=== PATIENT | female | born 1955 | race Caucasian/White ===

== ENCOUNTER 2017-09-18 16:29 | Inpatient (IN) ==
--- NOTE | 2017-09-18 17:41 | Emergency Department Note ---
Disposition Clinical Impression: Syncope, COPD (chronic obstructive pulmonary disease), History of heart artery stent, CAD (coronary artery disease), Elevated troponin, Elevated d-dimer, Abnormal EKG, Lactic acidosis, Abnormal urinalysis, Dyspnea on exertion Disposition: Admitted As Inpatient General Adult HPI - General Chief complaint: ED Shortness of Breath/Dyspnea Stated complaint: confused/SOB Source: patient Limitations: no limitations - History of Present Illness HPI Narrative: 61-year-old female with known pulmonary disease and a chronic oxygen requirement reports the ED with family members, there is concern because the patient dropped her oxygen saturation to the 70s earlier today, she has been progressively dyspneic with hypoxemia after walking only about 15 feet she has had a coarse cough and coughing up green material. There is no history of chest pain no leg swelling or pain or coughing up blood. No anticoagulant therapy at this time reported. There is no history of abdominal pain vomiting or diarrhea. No falls or injuries but the patient did have a syncopal event. She became significantly confused earlier in the day and also had what was describes a panic attack. The patient does not have a history of seizure disorders and there is no history of trauma. The patient went to another facility in [facility] and was evaluated partially but then left and came here. The patient's family is highly concerned regarding the patient's mental status, she was calling direct relatives by unfamiliar names, she apparently had a syncopal event, she was anxious and confused and short of breath. Pain Scale: 5 - Related Data Allergies Allergy/AdvReac Type Severity Reaction Status Date / Time ceftriaxone [From Rocephin] Allergy Hives Verified 09/18/17 16:57 All systems ED: reviewed and negative except as stated. Past Medical History - Past Medical History Medical history: Reports: COPD, coronary artery disease, myocardial infarction Psychiatric history: Reports: anxiety, depression - Social History Smoking Status: Current every day smoker Smokeless Tobacco Status: No Alcohol use: Reports: none Drug use: Reports: none Physical Exam - General Limitations: no limitations General appearance: alert, in no apparent distress - Head Head exam: atraumatic, normocephalic, normal inspection - Eye Eye exam: Present: normal appearance, PERRL, EOMI. Absent: scleral icterus, conjunctival injection - ENT ENT exam: normal exam, normal oropharynx, mucous membranes moist, TM's normal bilaterally, normal external ear exam - Neck Neck exam: Present: normal inspection, full ROM, trachea midline - Chest Chest inspection: Present: symmetric chest wall rise. Absent: tenderness - Respiratory Respiratory exam: Present: prolonged expiratory phase. Absent: respiratory distress, wheezes, accessory muscle use - Cardiovascular Cardiovascular exam: Present: regular rate, normal rhythm, normal heart sounds - Abdominal Exam Abdominal exam: Present: soft, Non-Tender, normal bowel sounds. Absent: tenderness, distention, guarding, rebound, rigidity - Extremities Exam Extremities exam: Present: normal inspection, full ROM, normal capillary refill. Absent: tenderness, pedal edema, joint swelling, calf tenderness - Expanded Lower Extremity Exam Neurovascular/Tendon exam: Present: normal capillary refill. Absent: motor deficit, sensory deficit, tendon deficit, extremity cold to touch, pallor - Back Exam Back exam: Present: normal inspection, full ROM. Absent: tenderness, CVA tenderness (R), CVA tenderness (L), vertebral tenderness - Neurological Exam Neurological exam: Present: alert, oriented X3, CN II-XII intact. Absent: motor sensory deficit - Psychiatric Psychiatric exam: Present: normal affect, normal mood - Skin Skin exam: Present: warm, dry, intact, normal color. Absent: rash, cyanosis, diaphoresis, erythema, pallor, mottled Course Vital Signs Temperature 97.4 F L 09/18/17 16:57 Pulse Rate 98 09/18/17 16:57 Respiratory Rate 20 09/18/17 16:57 Blood Pressure 111/74 09/18/17 16:57 O2 Sat by Pulse Oximetry 92 09/18/17 16:57 Temperature 97.4 F L 09/18/17 16:57 Pulse Rate 75 09/18/17 18:51 Respiratory Rate 18 09/18/17 18:51 Blood Pressure 101/70 09/18/17 18:51 O2 Sat by Pulse Oximetry 96 09/18/17 18:51 Oxygen Delivery Oxygen Delivery Nasal Cannula Medical Decision Making - [facility] Narrative Medical decision making narrative: The patient's EKG shows T-wave inversions but no ashish ST elevations, her troponin is notably elevated at 0.2. The patient also has elevated d-dimer. A CTA has been ordered. Aspirin was ordered as well as heparin. The patient apparently had a syncopal event, family thought the patient had some significant anxiety issues as well, she has been dyspneic on exertion and has a known history of COPD with oxygen requirement as well as CAD and multiple stents. Based on the patient's highly abnormal testing including elevated d- dimer and troponin as well as an abnormal EKG, non-STEMI is high in the differential, PE is also certainly high in the differentia. The patient has had no chest pain. She is currently stable. I discussed the case with the hospitalist on-call who has accepted the patient to their care CTA pending. - Lab Data Lab results reviewed: Yes I reviewed the patient's lab results. Result diagrams: 09/18/17 17:33 09/18/17 17:33 Lab Results 09/18/17 09/18/17 09/18/17 Range/Units 17:07 17:22 17:33 WBC 5.2 (4.3-11.1) K/mcL RBC 4.52 (3.82-4.97) M/mcL Hgb 13.7 (11.5-15.4) g/dL Hct 42.0 (35.3-44.9) % MCV 92.9 (83.0-100.0) fL MCH 30.3 (28.0-33.3) pg MCHC 32.6 (31.6-35.5) g/dL RDW 12.5 (11.5-14.5) % Plt Count 211 (140-400) K/mcL MPV 10.6 (9.4-12.4) fL Immature Gran % 0.4 (0-4) % Seg Neutrophils % 89.4 % Lymphocytes % 9.0 % Monocytes % 0.8 % Eosinophils % 0.2 % Basophils % 0.2 % Neutrophils # 4.7 (1.6-8.9) K/mcL Lymphocytes # 0.5 L (0.6-4.6) K/mcL Monocytes # 0.0 (0.0-1.3) K/mcL Eosinophils # 0.0 (0.0-0.6) K/mcL Basophils # 0.0 (0.0-0.2) K/mcL Immature Plt Fraction 7.6 H (1.1-6.1) % PT (9.4-12.1) Seconds INR APTT (26.0-36.0) Seconds D-Dimer (0-500) ng/mLFEU Sodium (136-145) mEq/L Potassium (3.5-4.5) mEq/L Chloride (98-109) mEq/L Carbon Dioxide (19-29) mEq/L BUN (7-20) mg/dL Creatinine (0.57-1.11) mg/dL Est GFR ( Amer) (> 60) Est GFR (Non-Af Amer) (> 60) BUN/Creatinine Ratio (6-26) Glucose (70-99) mg/dL Calculated Osmolality (280-300) Lactic Acid (0.5-2.2) mmol/L Calcium (8.6-10.8) mg/dL Total Bilirubin (0.2-1.2) mg/dL Direct Bilirubin (0.0-0.5) mg/dL Indirect Bilirubin (0.0-1.2) mg/dL AST (5-34) Units/L ALT (0-55) Units/L Alkaline Phosphatase (38-126) Units/L Troponin I (0-0.03) ng/mL C-Reactive Protein (Less than 5) mg/L B-Natriuretic Peptide (0-100) pg/mL Serum Total Protein (6.0-8.3) g/dL Albumin (3.5-5.0) g/dL Globulin (2.4-3.5) g/dL Albumin/Globulin Ratio (1.1-2.2) Urine Color Yellow (Yellow) Urine Clarity Cloudy A (Clear) Urine pH 6.5 (5.0-8.0) pH Units Ur Specific Electra 1.018 (1.010-1.025) Urine Protein Negative (Neg-Trace) mg/dL Urine Glucose (UA) Normal (Normal) mg/dL Urine Ketones Negative (Negative) mg/dL Urine Blood Negative (Negative) Urine Nitrite Negative (Negative) Urine Bilirubin Negative (Negative) Urine Urobilinogen Normal (Normal) mg/dL Ur Leukocyte Esterase Small H (Negative) Urine Microscopic RBC 0-3 (0-3) per hpf Urine Microscopic WBC 5-15 H (0-3) per hpf Ur Squamous Epith Cells Many H (None-Few) per lpf Urine Bacteria None Seen (None-Few) per hpf Hyaline Casts None Seen (None-Few) per lpf Ur Culture Indicated? YES A (NO) Salicylates (15-30) mg/dL Urine Opiates Screen Negative (Ztryhk=666) ng/mL Acetaminophen (10-30) mcg/mL Ur Barbiturates Screen Negative (Axnvyq=381) ng/mL Ur Phencyclidine Scrn Negative (Cutoff=25) ng/mL Ur Amphetamines Screen Negative (Mmkfhz=7748) ng/mL U Benzodiazepines Scrn Negative (Mwvnrk=712) ng/mL Urine Cocaine Screen Negative (Cutoff= 300) ng/mL U Marijuana (THC) Screen Negative (Cutoff = 50) ng/mL Ethyl Alcohol (0-10) mg/dL 09/18/17 09/18/17 09/18/17 Range/Units 17:33 17:33 17:33 WBC (4.3-11.1) K/mcL RBC (3.82-4.97) M/mcL Hgb (11.5-15.4) g/dL Hct (35.3-44.9) % MCV (83.0-100.0) fL MCH (28.0-33.3) pg MCHC (31.6-35.5) g/dL RDW (11.5-14.5) % Plt Count (140-400) K/mcL MPV (9.4-12.4) fL Immature Gran % (0-4) % Seg Neutrophils % % Lymphocytes % % Monocytes % % Eosinophils % % Basophils % % Neutrophils # (1.6-8.9) K/mcL Lymphocytes # (0.6-4.6) K/mcL Monocytes # (0.0-1.3) K/mcL Eosinophils # (0.0-0.6) K/mcL Basophils # (0.0-0.2) K/mcL Immature Plt Fraction (1.1-6.1) % PT 10.9 (9.4-12.1) Seconds INR 1.0 APTT 28.4 (26.0-36.0) Seconds D-Dimer 888 H (0-500) ng/mLFEU Sodium 138 (136-145) mEq/L Potassium 4.0 (3.5-4.5) mEq/L Chloride 99 (98-109) mEq/L Carbon Dioxide 32 H (19-29) mEq/L BUN 13 (7-20) mg/dL Creatinine 0.77 (0.57-1.11) mg/dL Est GFR ( Amer) > 60 (> 60) Est GFR (Non-Af Amer) > 60 (> 60) BUN/Creatinine Ratio 17 (6-26) Glucose 149 H (70-99) mg/dL Calculated Osmolality 289 (280-300) Lactic Acid 3.1 H (0.5-2.2) mmol/L Calcium 9.5 (8.6-10.8) mg/dL Total Bilirubin 0.4 (0.2-1.2) mg/dL Direct Bilirubin 0.2 (0.0-0.5) mg/dL Indirect Bilirubin 0.2 (0.0-1.2) mg/dL AST 28 (5-34) Units/L ALT 25 (0-55) Units/L Alkaline Phosphatase 76 (38-126) Units/L Troponin I (0-0.03) ng/mL C-Reactive Protein (Less than 5) mg/L B-Natriuretic Peptide (0-100) pg/mL Serum Total Protein 6.3 (6.0-8.3) g/dL Albumin 3.5 (3.5-5.0) g/dL Globulin 2.8 (2.4-3.5) g/dL Albumin/Globulin Ratio 1.3 (1.1-2.2) Urine Color (Yellow) Urine Clarity (Clear) Urine pH (5.0-8.0) pH Units Ur Specific Electra (1.010-1.025) Urine Protein (Neg-Trace) mg/dL Urine Glucose (UA) (Normal) mg/dL Urine Ketones (Negative) mg/dL Urine Blood (Negative) Urine Nitrite (Negative) Urine Bilirubin (Negative) Urine Urobilinogen (Normal) mg/dL Ur Leukocyte Esterase (Negative) Urine Microscopic RBC (0-3) per hpf Urine Microscopic WBC (0-3) per hpf Ur Squamous Epith Cells (None-Few) per lpf Urine Bacteria (None-Few) per hpf Hyaline Casts (None-Few) per lpf Ur Culture Indicated? (NO) Salicylates (15-30) mg/dL Urine Opiates Screen (Ypkggx=370) ng/mL Acetaminophen (10-30) mcg/mL Ur Barbiturates Screen (Fqtkxf=703) ng/mL Ur Phencyclidine Scrn (Cutoff=25) ng/mL Ur Amphetamines Screen (Odwxuj=0806) ng/mL U Benzodiazepines Scrn (Pqaloo=401) ng/mL Urine Cocaine Screen (Cutoff= 300) ng/mL U Marijuana (THC) Screen (Cutoff = 50) ng/mL Ethyl Alcohol (0-10) mg/dL 09/18/17 09/18/17 09/18/17 Range/Units 17:33 17:33 17:33 WBC (4.3-11.1) K/mcL RBC (3.82-4.97) M/mcL Hgb (11.5-15.4) g/dL Hct (35.3-44.9) % MCV (83.0-100.0) fL MCH (28.0-33.3) pg MCHC (31.6-35.5) g/dL RDW (11.5-14.5) % Plt Count (140-400) K/mcL MPV (9.4-12.4) fL Immature Gran % (0-4) % Seg Neutrophils % % Lymphocytes % % Monocytes % % Eosinophils % % Basophils % % Neutrophils # (1.6-8.9) K/mcL Lymphocytes # (0.6-4.6) K/mcL Monocytes # (0.0-1.3) K/mcL Eosinophils # (0.0-0.6) K/mcL Basophils # (0.0-0.2) K/mcL Immature Plt Fraction (1.1-6.1) % PT (9.4-12.1) Seconds INR APTT (26.0-36.0) Seconds D-Dimer (0-500) ng/mLFEU Sodium (136-145) mEq/L Potassium (3.5-4.5) mEq/L Chloride (98-109) mEq/L Carbon Dioxide (19-29) mEq/L BUN (7-20) mg/dL Creatinine (0.57-1.11) mg/dL Est GFR ( Amer) (> 60) Est GFR (Non-Af Amer) (> 60) BUN/Creatinine Ratio (6-26) Glucose (70-99) mg/dL Calculated Osmolality (280-300) Lactic Acid (0.5-2.2) mmol/L Calcium (8.6-10.8) mg/dL Total Bilirubin (0.2-1.2) mg/dL Direct Bilirubin (0.0-0.5) mg/dL Indirect Bilirubin (0.0-1.2) mg/dL AST (5-34) Units/L ALT (0-55) Units/L Alkaline Phosphatase (38-126) Units/L Troponin I 0.20 H* (0-0.03) ng/mL C-Reactive Protein < 1 (Less than 5) mg/L B-Natriuretic Peptide 65 (0-100) pg/mL Serum Total Protein (6.0-8.3) g/dL Albumin (3.5-5.0) g/dL Globulin (2.4-3.5) g/dL Albumin/Globulin Ratio (1.1-2.2) Urine Color (Yellow) Urine Clarity (Clear) Urine pH (5.0-8.0) pH Units Ur Specific Electra (1.010-1.025) Urine Protein (Neg-Trace) mg/dL Urine Glucose (UA) (Normal) mg/dL Urine Ketones (Negative) mg/dL Urine Blood (Negative) Urine Nitrite (Negative) Urine Bilirubin (Negative) Urine Urobilinogen (Normal) mg/dL Ur Leukocyte Esterase (Negative) Urine Microscopic RBC (0-3) per hpf Urine Microscopic WBC (0-3) per hpf Ur Squamous Epith Cells (None-Few) per lpf Urine Bacteria (None-Few) per hpf Hyaline Casts (None-Few) per lpf Ur Culture Indicated? (NO) Salicylates (15-30) mg/dL Urine Opiates Screen (Jjhsvx=802) ng/mL Acetaminophen (10-30) mcg/mL Ur Barbiturates Screen (Vuzxbi=165) ng/mL Ur Phencyclidine Scrn (Cutoff=25) ng/mL Ur Amphetamines Screen (Scizjo=5270) ng/mL U Benzodiazepines Scrn (Wudfvr=729) ng/mL Urine Cocaine Screen (Cutoff= 300) ng/mL U Marijuana (THC) Screen (Cutoff = 50) ng/mL Ethyl Alcohol (0-10) mg/dL 09/18/17 Range/Units 17:37 WBC (4.3-11.1) K/mcL RBC (3.82-4.97) M/mcL Hgb (11.5-15.4) g/dL Hct (35.3-44.9) % MCV (83.0-100.0) fL MCH (28.0-33.3) pg MCHC (31.6-35.5) g/dL RDW (11.5-14.5) % Plt Count (140-400) K/mcL MPV (9.4-12.4) fL Immature Gran % (0-4) % Seg Neutrophils % % Lymphocytes % % Monocytes % % Eosinophils % % Basophils % % Neutrophils # (1.6-8.9) K/mcL Lymphocytes # (0.6-4.6) K/mcL Monocytes # (0.0-1.3) K/mcL Eosinophils # (0.0-0.6) K/mcL Basophils # (0.0-0.2) K/mcL Immature Plt Fraction (1.1-6.1) % PT (9.4-12.1) Seconds INR APTT (26.0-36.0) Seconds D-Dimer (0-500) ng/mLFEU Sodium (136-145) mEq/L Potassium (3.5-4.5) mEq/L Chloride (98-109) mEq/L Carbon Dioxide (19-29) mEq/L BUN (7-20) mg/dL Creatinine (0.57-1.11) mg/dL Est GFR ( Amer) (> 60) Est GFR (Non-Af Amer) (> 60) BUN/Creatinine Ratio (6-26) Glucose (70-99) mg/dL Calculated Osmolality (280-300) Lactic Acid (0.5-2.2) mmol/L Calcium (8.6-10.8) mg/dL Total Bilirubin (0.2-1.2) mg/dL Direct Bilirubin (0.0-0.5) mg/dL Indirect Bilirubin (0.0-1.2) mg/dL AST (5-34) Units/L ALT (0-55) Units/L Alkaline Phosphatase (38-126) Units/L Troponin I (0-0.03) ng/mL C-Reactive Protein (Less than 5) mg/L B-Natriuretic Peptide (0-100) pg/mL Serum Total Protein (6.0-8.3) g/dL Albumin (3.5-5.0) g/dL Globulin (2.4-3.5) g/dL Albumin/Globulin Ratio (1.1-2.2) Urine Color (Yellow) Urine Clarity (Clear) Urine pH (5.0-8.0) pH Units Ur Specific Electra (1.010-1.025) Urine Protein (Neg-Trace) mg/dL Urine Glucose (UA) (Normal) mg/dL Urine Ketones (Negative) mg/dL Urine Blood (Negative) Urine Nitrite (Negative) Urine Bilirubin (Negative) Urine Urobilinogen (Normal) mg/dL Ur Leukocyte Esterase (Negative) Urine Microscopic RBC (0-3) per hpf Urine Microscopic WBC (0-3) per hpf Ur Squamous Epith Cells (None-Few) per lpf Urine Bacteria (None-Few) per hpf Hyaline Casts (None-Few) per lpf Ur Culture Indicated? (NO) Salicylates < 5.0 L (15-30) mg/dL Urine Opiates Screen (Ftosys=141) ng/mL Acetaminophen < 1.0 L (10-30) mcg/mL Ur Barbiturates Screen (Qvcnlk=188) ng/mL Ur Phencyclidine Scrn (Cutoff=25) ng/mL Ur Amphetamines Screen (Tjzmgz=4163) ng/mL U Benzodiazepines Scrn (Tucojf=891) ng/mL Urine Cocaine Screen (Cutoff= 300) ng/mL U Marijuana (THC) Screen (Cutoff = 50) ng/mL Ethyl Alcohol < 10 (0-10) mg/dL - Radiology Data Radiology results reviewed: Yes I reviewed the patient's radiology results.
[2017-09-18 17:49] LABS: Basophils % 0.2 %; Eosinophils % 0.2 %; Hemoglobin 13.7 g/dL (11.5-15.4); Immature Granulocytes % 0.4 % (0-4); Immature Platelets 7.6 % (1.1-6.1); Lymphocytes # 0.5 K/mcL (0.6-4.6); Mean Corpuscular HGB Conc 32.6 g/dL (31.6-35.5); Mean Corpuscular Hemoglobin 30.3 pg (28.0-33.3); Mean Corpuscular Volume 92.9 fL (83.0-100.0); Mean Platelet Volume 10.6 fL (9.4-12.4); Monocytes % 0.8 %; Neutrophils # 4.7 K/mcL (1.6-8.9); Platelet Count 211 K/mcL (140-400); Red Blood Count 4.52 M/mcL (3.82-4.97); Red Cell Distribution Width 12.5 % (11.5-14.5); Segmented Neutrophils % 89.4 %
[2017-09-18 17:55] LABS: Prothrombin Time 10.9 Seconds (9.4-12.1)
[2017-09-18 17:57] LABS: Activated Partial Thrombo Time 28.4 Seconds (26.0-36.0)
[2017-09-18 18:03] LABS: Alanine Aminotransferase 25 Units/L (0-55); Albumin 3.5 g/dL (3.5-5.0); Albumin/Globulin Ratio 1.3 (1.1-2.2); Alkaline Phosphatase 76 Units/L (38-126); Aspartate Amino Transferase 28 Units/L (5-34); BUN/Creatinine Ratio 17 (6-26); Bilirubin,Direct 0.2 mg/dL (0.0-0.5); Bilirubin,Indirect 0.2 mg/dL (0.0-1.2); Bilirubin,Total 0.4 mg/dL (0.2-1.2); Blood Urea Nitrogen 13 mg/dL (7-20); Calcium 9.5 mg/dL (8.6-10.8); Carbon Dioxide 32 mEq/L (19-29); Chloride 99 mEq/L (98-109); Globulin 2.8 g/dL (2.4-3.5); Glucose 149 mg/dL (70-99); Osmolality,Calculated 289 (280-300); Sodium 138 mEq/L (136-145); Total Protein 6.3 g/dL (6.0-8.3); eGFR For African Americans > 60 (> 60); eGFR For Non-African Americans > 60 (> 60)
[2017-09-18 18:33] LABS: Acetaminophen < 1.0 mcg/mL (10-30); Ethanol < 10 mg/dL (0-10); Salicylate < 5.0 mg/dL (15-30)
[2017-09-18 18:38] LABS: Bilirubin,Urine Negative (Negative); Blood,Urine Negative (Negative); Clarity,Urine Cloudy (Clear); Color,Urine Yellow (Yellow); Glucose,Urine (UA) Normal (Normal); Ketones,Urine Negative (Negative); Leukocyte Esterase,Urine Small (Negative); Nitrite,Urine Negative (Negative); PH,Urine 6.5 pH Units (5.0-8.0); Protein,Urine Negative (Neg-Trace); Specific Gravity,Urine 1.018 (1.010-1.025); Urobilinogen,Urine Normal (Normal)
[2017-09-18 18:41] LABS: Bacteria,Urine None Seen per hpf (None-Few); Hyaline Casts,Urine None Seen per lpf (None-Few); RBC,Urine 0-3 per hpf (0-3); Squamous Epithelial Cell,Urine Many per lpf (None-Few)
[2017-09-18] MEDS ORDERED: *HR* Heparin 5,000 UNIT/ML VIAL IVP PRN ×2 (18:41)
[2017-09-18] MEDS ORDERED: *HR* Heparin 5,000 UNIT/ML VIAL IVP ONE (18:41)
[2017-09-18] MEDS ORDERED: Aspirin 325 MG TABLET PO ONE (18:42)
[2017-09-18] MEDS ORDERED: Heparin 25,000 UNIT/500 ML D5W 25,000 UNIT/500 ML MLS IVC SCH ×2 (18:45→23:14)
[2017-09-18 19:24] LABS: Amphetamine Screen,Urine Negative ng/mL (Cutoff=1000); Barbiturate Screen,Urine Negative ng/mL (Cutoff=200); Benzodiazepines Screen,Urine Negative ng/mL (Cutoff=200); Cannabinoid Screen,Urine Negative ng/mL (Cutoff = 50); Cocaine Screen,Urine Negative ng/mL (Cutoff= 300); Opiate Screen,Urine Negative ng/mL (Cutoff=300); Phencyclidine Screen,Urine Negative ng/mL (Cutoff=25)
[2017-09-18] MEDS ORDERED: 0.9 % Sodium Chloride 250 ML ONE (20:36)
[2017-09-18] MEDS ORDERED: *HR* LORazepam 0.5 MG TABLET PO PRN (21:28)
[2017-09-18] MEDS ORDERED: Acetaminophen 325 MG TABLET PO PRN (22:51)
[2017-09-18] MEDS ORDERED: Naloxone 0.4 MG/ML INJ IVP PRN (22:51)
[2017-09-18] MEDS ORDERED: 0.9 % Sodium Chloride 1,000 ML IVC SCH (23:00)
[2017-09-18] MEDS ORDERED: Ipratropium/Albuterol Neb 3 ML IH PRN (23:04)
[2017-09-18] MEDS: *HR* LORazepam 0.5 MG TABLET PO SCH (23:16)
[2017-09-19 00:18] LABS: Basophils % 0.2 %; Eosinophils % 0.2 %; Hematocrit 38.6 % (35.3-44.9); Hemoglobin 12.6 g/dL (11.5-15.4); Immature Granulocytes % 0.2 % (0-4); Lymphocytes # 1.1 K/mcL (0.6-4.6); Lymphocytes % 19.1 %; Mean Corpuscular HGB Conc 32.6 g/dL (31.6-35.5); Mean Corpuscular Volume 91.9 fL (83.0-100.0); Mean Platelet Volume 10.5 fL (9.4-12.4); Monocytes # 0.6 K/mcL (0.0-1.3); Monocytes % 10.8 %; Neutrophils # 3.9 K/mcL (1.6-8.9); Platelet Count 215 K/mcL (140-400); Red Cell Distribution Width 12.4 % (11.5-14.5); Segmented Neutrophils % 69.5 %
[2017-09-19 00:30] LABS: BUN/Creatinine Ratio 19 (6-26); Blood Urea Nitrogen 15 mg/dL (7-20); Carbon Dioxide 30 mEq/L (19-29); Chloride 102 mEq/L (98-109); Glucose 132 mg/dL (70-99); Magnesium 1.9 mg/dL (1.6-2.6); Osmolality,Calculated 287 (280-300); Potassium 4.5 mEq/L (3.5-4.5); Sodium 137 mEq/L (136-145); eGFR For African Americans > 60 (> 60); eGFR For Non-African Americans > 60 (> 60)
--- NOTE | 2017-09-19 05:55 | Internal Med History&Physical ---
Date of Encounter: 09/18/17 Time of Encounter: 23:00 Assessment and Plan (1) NSTEMI (non-ST elevated myocardial infarction) Current visit: Yes Status: Acute Patient has shortness of breath and mild chest pain. EKG shows T-wave inversion. Elevated troponin. - Considered NSTEMI. - Place patient on heparin drip. Aspirin and beta mely. - Cardiology consult in a.m. Keep patient nothing by mouth from midnight for possible catheterization. (2) COPD (chronic obstructive pulmonary disease) Current visit: Yes Status: Acute No wheezing. Continue nebulizer as needed Qualifiers: COPD type: emphysema Emphysema type: other Qualified Code(s): J43.8 - Other emphysema (3) CAD (coronary artery disease) Current visit: Yes Status: Acute History of CAD S/P stent. Continue heparin drip right now Qualifiers: Coronary Disease-Associated Artery/Lesion type: [place] artery [place] vs. transplanted heart: [place] heart Associated angina: without angina Qualified Code(s): I25.10 - Atherosclerotic heart disease of [place] coronary artery without angina pectoris (4) DVT prophylaxis Current visit: Yes Status: Acute Days on heparin drip (5) Confusion Current visit: Yes Status: Acute Etiology is undetermined. CT head negative. Patient right now is awake alert and fully oriented Internal Medicine - H&P: HPI Chief complaint: Shortness of breath Admitted From: Home Plans for Post Hospital Care: Home History of present illness: Ms. Shen is a 61 year old female with history of COPD, CAD S/P stent, panic disorder present to ER for shortness of breath. The patient said symptoms started from this morning about 2 AM. Patient described as "cannot breathe". She also has intermittent mild chest pain with radiation to the jaw. Patient denies nausea, vomiting, fever, diaphoresis. Patient also complains confused and cannot remember that she was taken by EMS. In emergency room, she was found abnormal EKG with II, III, aVF and V4-V6 T-wave inversion. Patient also has elevated troponin. She was admitted for NSTEMI. Past Med Surg Social Fam HX - Past Medical History Medical history: COPD, coronary artery disease, myocardial infarction Psychiatric history: anxiety - Past Surgical History Surgical History: no surgical history, other - Social History Smoking Status: Current every day smoker Packs per day: 1 Smokeless Tobacco Status: No Alcohol use: none Drug use: none - Family History Mother History Unknown: Yes Internal Medicine - H&P: Meds Aspirin [Lo-Dose Aspirin EC] 81 mg PO DAILY 09/18/17 [History] Citalopram [CeleXA] 20 mg PO DAILY 09/18/17 [History] Fluticasone/Salmeterol [Advair 250-50 Diskus] 1 puff IH BID 09/18/17 [History] Ipratropium/Albuterol Neb [Duoneb] 3 ml IH Q6HR PRN 09/18/17 [History] RX: Albuterol Sulfate [Albuterol Inhaler] 2 puff IH Q6H PRN 09/18/17 [History] RX: LORazepam [Ativan] 0.5 mg PO BID 09/18/17 [History] 3 Allergy/AdvReac Type Severity Reaction Status Date / Time ceftriaxone [From Rocephin] Allergy Hives Verified 09/18/17 16:57 All Systems PM: A 10-system review of systems was performed and is negative for pertinent findings except as documented above in the HPI. - Constitutional Vitals: Temp Pulse Resp BP Pulse Ox 98.8 F 75 22 100/64 96 09/19/17 00:04 09/19/17 00:04 09/19/17 00:04 09/19/17 00:04 09/19/17 00:04 General appearance: Present: A&O X 3, no acute distress, answers questions appropriately - Head Head exam: Present: atraumatic, normocephalic - Eye Eye exam: Present: PERRL, conjuntiva pink, sclera anicteric Pupils: Present: PERRL - Neck Neck exam general surgery: Present: supple, trachea midline. Absent: lymphadenopathy - Respiratory Respiratory exam: Present: CTAB. Absent: accessory muscle use, rales, rhonchi, wheezes - Cardiovascular Cardiovascular exam: Present: RRR, +S1, +S2. Absent: diastolic murmur, gallop, rubs, systolic murmur - GI/Abdominal GI/Abdominal exam: Present: normal bowel sounds, soft, no peritoneal signs. Absent: distended, tenderness - Extremities Exam Extremities exam: Present: warm, radial pulses palpable and symmetrical. Absent : calf tenderness, cyanotic, pedal edema - Neurological Exam Neurological exam: Present: CN II-XII intact, oriented X3, no focal deficits. Absent: pronater drift, facial droop, speech deficit - Skin Skin exam: Present: dry, intact Internal Med - H&P Results - Labs CBC & Chem 7: 09/19/17 00:10 09/19/17 00:10 Labs: Short CBC 09/19/17 Range/Units 00:10 WBC 5.6 (4.3-11.1) K/mcL Hgb 12.6 (11.5-15.4) g/dL Hct 38.6 (35.3-44.9) % Plt Count 215 (140-400) K/mcL Neutrophils # 3.9 (1.6-8.9) K/mcL BMP 09/19/17 00:10 Sodium 137 Potassium 4.5 Chloride 102 Carbon Dioxide 30 H BUN 15 Creatinine 0.78 Glucose 132 H Calcium 9.0 Cardiac Enzymes 09/19/17 09/19/17 Range/Units 00:10 04:53 Troponin I 0.40 H* 0.38 H* (0-0.03) ng/mL
--- NOTE | 2017-09-19 07:56 | Cardiology Consult Note ---
Date of Encounter: 09/19/17 Time of Encounter: 07:56 Assessment and Plan (1) NSTEMI (non-ST elevated myocardial infarction) Current Visit: Yes Status: Acute Troponins 0.38, 0.40, 0.20--now downtrending. Symptoms of dyspnea, diaphoresis, chest and jaw pain, unresponsiveness. Chest CTA negative for PE. On heparin gtt. Start ASA, Statin, BB. Known hx of CAD--3 prior PCIs approximately 7-8 years ago per pt at [facility]. Pt unfortunately continues to smoke. EKG with inferior and lateral ischemia--no prior for comparison. Recommend [facility]. R/B/A discussed. Pt agrees to proceed. [facility] today. Check echo as well to evaluate structure and function. (2) CAD (coronary artery disease) Current Visit: Yes Status: Acute ASA, Statin, BB. Qualifiers: Coronary Disease-Associated Artery/Lesion type: [place] artery [place] vs. transplanted heart: [place] heart Associated angina: without angina Qualified Code(s): I25.10 - Atherosclerotic heart disease of [place] coronary artery without angina pectoris Discussion w patient/family: The assessment and plan as outlined above was discussed with the patient and/or family members who expressed understanding and agreement. All questions were answered. Thank you for involving us in the care of your patient. Please call with any questions. I will discuss all the above with Dr. Kurtz and make changes as necessary. History of Present Illness Consult date: 09/19/17 Requesting physician: Jolanta Arnold Consult reason: NSTEMI Chief complaint: dyspnea, chest and jaw pain History of present illness: Ms. Shen is a 61 year old female with PMH of COPD, CAD S/P PCI, panic disorder , tobacco abuse that presented to ER for shortness of breath. The patient said symptoms started yesterday v [employer]. Patient described that she couldn't breath, also had intermittent mild chest pressure, left jaw pain and diaphoresis. Per pt family, she went unresponsive as well. Her eyes were open, but she cannot recall events and was not responding to them. Troponins 0.38, 0.40, 0.20. EKG with inferolateral ischemia. Currently chest pain free. Chest CTA negative for PE. Past Med Surg Social Fam HX - Past Medical History Medical history: COPD, coronary artery disease, myocardial infarction Psychiatric history: anxiety - Past Surgical History Surgical History: angioplasty/stent, other - Social History Smoking Status: Current every day smoker Packs per day: 1 Smokeless Tobacco Status: No Alcohol use: none Drug use: none - Family History Mother History Unknown: Yes Medications and Allergies Albuterol Sulfate [Albuterol Inhaler] 2 puff IH Q6H PRN 09/18/17 [History] Aspirin [Lo-Dose Aspirin EC] 81 mg PO DAILY 09/18/17 [History] Citalopram [CeleXA] 20 mg PO DAILY 09/18/17 [History] Fluticasone/Salmeterol [Advair 250-50 Diskus] 1 puff IH BID 09/18/17 [History] Ipratropium/Albuterol Neb [Duoneb] 3 ml IH Q6HR PRN 09/18/17 [History] LORazepam [Ativan] 0.5 mg PO BID 09/18/17 [History] 3 Allergy/AdvReac Type Severity Reaction Status Date / Time ceftriaxone [From Rocephin] Allergy Hives Verified 09/18/17 16:57 All Systems Review: A 10-system review of systems was performed and is negative for pertinent findings except as documented above in the HPI. - Cardiovascular Cardiovascular: as per HPI, chest pain at rest, diaphoresis, dyspnea at rest, dyspnea on exertion, radiating jaw, neck or arm pain - Respiratory Respiratory: cough, dyspnea Physical Examination Vital Signs, Last 4 Hours Temp Pulse Resp BP Pulse Ox 09/19/17 07:10 97.5 F L 67 15 100/64 99 09/19/17 05:15 98.5 F 70 16 98/63 99 Vital Signs Temp Pulse Resp BP Pulse Ox 09/19/17 07:10 97.5 F L 67 15 100/64 99 09/19/17 05:15 98.5 F 70 16 98/63 99 09/19/17 00:04 98.8 F 75 22 100/64 96 09/18/17 20:30 98.7 F 70 20 103/73 94 09/18/17 18:51 75 18 101/70 96 09/18/17 17:08 97 09/18/17 16:57 97.4 F L 98 20 111/74 92 Intake and Output 09/18/17 09/18/17 09/19/17 15:59 23:59 07:59 Intake Total 0 / 0 295 / 295 Balance 0 / 0 295 / 295 Intake: IV Fluids 175 / 175 Heparin 25,000 UNIT/500 ML D5W 175 / 175 25,000 unit In 500 ml @ 14 UNIT /KG/HR 14.326 mls/hr IVC .Q24H VETO Rx#:[id number] Oral 0 / 0 120 / 120 Other: # Voids 0 1 Weight 51.5 kg General: Conversant, No Apparent Distress HEENT: Atraumatic, Normocephaly, Mucus Membranes Moist Neck: No JVD, Normal carotid pulses Cardiac: Reg Rate and Rhythm, Normal S1 and S2, No Murmur Lungs: Other (wheezes throughout) Neuro: Alert and responsive, No focal deficits noted Abdomen: Soft, Non-Tender Skin: No rashes noted on visualized skin Musculoskeletal: No Chest Wall Tenderness Extremities: No Clubbing, No Cyanosis, No Edema, Normal Pulses Results 09/19/17 00:10 09/19/17 00:10 Lab Results 09/19/17 09/19/17 09/19/17 00:10 00:10 00:10 WBC 5.6 Hgb 12.6 Hct 38.6 Plt Count 215 APTT Sodium 137 Potassium 4.5 Chloride 102 Carbon Dioxide 30 H BUN 15 Creatinine 0.78 Glucose 132 H Calcium 9.0 Magnesium 1.9 Troponin I 0.40 H* 09/19/17 09/19/17 04:53 04:53 WBC Hgb Hct Plt Count APTT 87.5 H D Sodium Potassium Chloride Carbon Dioxide BUN Creatinine Glucose Calcium Magnesium Troponin I 0.38 H* Short CBC 09/19/17 09/18/17 Range/Units 00:10 17:33 WBC 5.6 5.2 (4.3-11.1) K/mcL Hgb 12.6 13.7 (11.5-15.4) g/dL Hct 38.6 42.0 (35.3-44.9) % Plt Count 215 211 (140-400) K/mcL Neutrophils # 3.9 4.7 (1.6-8.9) K/mcL BMP 09/19/17 09/18/17 Range/Units 00:10 17:33 Sodium 137 138 (136-145) mEq/L Potassium 4.5 4.0 (3.5-4.5) mEq/L Chloride 102 99 (98-109) mEq/L Carbon Dioxide 30 H 32 H (19-29) mEq/L BUN 15 13 (7-20) mg/dL Creatinine 0.78 0.77 (0.57-1.11) mg/dL Glucose 132 H 149 H (70-99) mg/dL Calcium 9.0 9.5 (8.6-10.8) mg/dL Cardiac Enzymes 09/19/17 09/19/17 09/18/17 Range/Units 04:53 00:10 17:33 Troponin I 0.38 H* 0.40 H* 0.20 H* (0-0.03) ng/mL Liver Function 09/18/17 Range/Units 17:33 Total Bilirubin 0.4 (0.2-1.2) mg/dL Direct Bilirubin 0.2 (0.0-0.5) mg/dL AST 28 (5-34) Units/L ALT 25 (0-55) Units/L Alkaline Phosphatase 76 (38-126) Units/L Albumin 3.5 (3.5-5.0) g/dL Urine 09/18/17 Range/Units 17:07 Urine Color Yellow (Yellow) Urine Clarity Cloudy A (Clear) Urine pH 6.5 (5.0-8.0) pH Units Ur Specific [place] 1.018 (1.010-1.025) Urine Protein Negative (Neg-Trace) mg/dL Urine Glucose (UA) Normal (Normal) mg/dL Impressions Chest X-Ray 09/18/17 17:06 IMPRESSION: 1. No acute cardiopulmonary abnormality. 2. Findings of emphysema with chronic obstructive physiology. D/ / Jeromy Carmona MD / Jeromy Carmona MD Interpreting Provider: Jeromy Carmona MD Head CT 09/18/17 17:23 IMPRESSION: No acute intracranial abnormality. D/ / Jodie Méndez Cha, MD / Jodie Méndez Cha, MD Interpreting Provider: Jodie Méndez Cha, MD Chest CTA 09/18/17 19:03 IMPRESSION: No evidence of pulmonary embolism. Severe centrilobular emphysematous changes, most pronounced in the bilateral upper lobes. Dilatation of the main pulmonary artery, measuring up to 3.4 cm, consistent with pulmonary arterial hypertension, which may be related to lung disease. Multiple, bilateral nodular opacities. Largest is in the anteromedial left upper lobe that measures 1.2 x 1.7 cm. Follow-up imaging is recommended, as outlined below. RECOMMENDATIONS: Fleischner Society guidelines for follow-up and management of incidentally detected pulmonary nodules: Multiple Solid Nodules: Nodule size greater than 8 mm In a high-risk patient, CT at 3-6 months, then CT at 18-24 months. - High risk patients include individuals with a history or smoking or known risk factors. Radiology 2017 http://pubs.[facility]na.org/doi/full/10.1148/radiol.0493810441 D/ / 09/18/2017 20:25:53 Erlin Melendez MD / [facility] Interpreting Provider: Erlin Melendez MD Active Medications Acetaminophen (Tylenol) 650 mg PO Q6HR PRN PRN Reason: Mild Pain (1-3) Stop: 03/20/18 22:52 Albuterol Sulfate (Albuterol Inhaler) 2 puff IH Q6H PRN PRN Reason: Dyspnea Stop: 03/20/18 23:05 Albuterol/Ipratropium (Duoneb) 3 ml IH Q6HR PRN PRN Reason: Shortness Of Breath Stop: 03/20/18 23:05 Aspirin (Aspirin Ec) 81 mg PO DAILY [facility] Stop: 03/21/18 09:01 Budesonide/Formoterol Fumarate (Symbicort) 1 puff IH BIDR [facility] Stop: 03/21/18 10:01 Citalopram Hydrobromide (Celexa) 20 mg PO DAILY [facility] Stop: 03/21/18 09:01 Heparin Sodium (Porcine) (Heparin) 3,600 unit 70 unit/kg (3600 unit) IVP Q6HR PRN PRN Reason: SEE COMMENTS Stop: 03/20/18 18:42 Heparin Sodium (Porcine) (Heparin) 1,800 unit 35 unit/kg (1800 unit) IVP Q6H PRN PRN Reason: SEE COMMENTS Stop: 03/20/18 18:42 Sodium Chloride (0.9 % Sodium Chloride) 1,000 mls @ 60 mls/hr IVC .[id number] [facility] Stop: 03/20/18 23:01 Last Admin: 09/18/17 23:39 Dose: 60 mls/hr Heparin Sodium/Dextrose (Heparin 25,000 Unit/500 Ml D5w) 25,000 unit in 500 mls @ 14.326 mls/hr IVC .Q24H VETO; 14 UNIT/KG/HR PRN Reason: Protocol Stop: 03/20/18 18:46 Lorazepam (Ativan) 0.5 mg PO BID [facility] Stop: 03/20/18 23:16 Last Admin: 09/18/17 23:16 Dose: Not Given Metoprolol Tartrate (Lopressor) 12.5 mg PO BID [facility] Stop: 03/20/18 23:16 Last Admin: 09/18/17 23:40 Dose: 12.5 mg Naloxone HCl (Narcan) 0.4 mg IVP Q2MIN PRN PRN Reason: Opioid Reversal Stop: 03/20/18 22:52 - EKG Interpretation EKG results cardiology: personally reviewed (inferolateral ischemia) Consult Discharge Plan - Plan Referrals: Jodie Garcia CNP [Primary Care Provider] - Johanna Monge CNP [Family Provider] -
[2017-09-19] MEDS: Budesonide/Formoterol 80/4.5 MDI IH SCH ×2 (08:48→20:21)
[2017-09-19] MEDS ORDERED: Nitroglycerin 1,000 MCG/10 ML VIAL IV ONE (08:54)
[2017-09-19] MEDS ORDERED: 0.9 % Sodium Chloride 1,000 ML ONE ×2 (08:54→09:29)
[2017-09-19] MEDS ORDERED: *HR* Heparin 10,000 UNIT/10 ML VIAL ONE (08:54)
[2017-09-19] MEDS ORDERED: Heparin 1,000 UNITS/500 mL NS 500 ML ONE (08:54)
[2017-09-19] MEDS ORDERED: *HR* Midazolam HCl 2 MG/2 ML VIAL ONE (09:29)
[2017-09-19] MEDS ORDERED: *HR* Bivalirudin 250 MG VIAL IVC ONE (09:58)
[2017-09-19] MEDS ORDERED: *HR* Ticagrelor 90 MG TABLET ONE (10:23)
--- NOTE | 2017-09-19 10:31 | Pre-Sedation Evaluation ---
Pre-sedation evaluation - Pre-sedation checklist Date of procedure: 09/19/17 Procedure: Left heart cath/possible PCi Recent Vitals: Last Vital Signs Temp 97.5 F L 09/19/17 07:10 Pulse 67 09/19/17 07:10 Resp 15 09/19/17 07:10 BP 100/64 09/19/17 07:10 Pulse Ox 99 09/19/17 07:10 H&P (including ROS) documented in medical record: Yes Previous reaction to sedatives/anesthetics: No Dietary Status: NPO after Midnight Airway Assessment: Patient can open mouth completely, TMJ function normal Dentition: No loose teeth or bridges Possible difficult airway: No ASA Classification *see protocol: CLASS III-Severe systemic disease Plan of Care: Pt appropriate candidate for procedure/moderate/conscious sedation , Risks/benefits of procedure/sedation discussed w/ patient/family, If not NPO; Risk of intake outweiged by necessity to perform procedure
[2017-09-19] MEDS ORDERED: 0.9 % Sodium Chloride 1,000 ML IVC SCH (10:45)
--- NOTE | 2017-09-19 10:57 | Invasive Diagnostic Lab Proc ---
Name: Jackie Shen Date of Study: 09/19/2017 Date: 1955 Ht: 65.0in Medical Record#: [id number] Age: 61 Wt: 113.54lb Gender: Female BSA: 1.56 Order #: [id number] BMI: 18.89 Physicians Procedure Physician: Rudy Bermeo DO Referring MD: Jodie Garcia, [employer] Referring MD: Staff Name Position Time In MonetaBrittaney RT (R) Monitor 09:37 AM Gabriella Patel RN Pl Sql Developer 09:37 AM Rio Curran RN Pl Sql Developer 09:37 AM [facility] RT (R) Scrub 09:37 AM Indications Indication Non-Stemi Procedures Performed Procedure PRQ CARD PRAVIN STENT W/ANGIO 1 VSL PRQ CARD PRAVIN STENT W/ANGIO 1 VSL L HRT ARTERY/VENTRICLE ANGIO Pre-Procedure Checklist Informed consent is complete signed and on chart. H&P is on chart. ID band is on and ID verified with patient. Patient NPO for procedure The procedure was described for the patient and questions were answered. Blood Pressure: 100/64 ECG is on chart. Plan of Care Patient will tolerate the procedure without complications. Adequate level of comfort will be maintained. Hemodynamics will remain stable Patient will recover from procedure without complications. Respiratory function will be maintained. Cardiac rhythm will remain stable. Patient temperature will be maintained. Patient and/or family have verbalized understanding of the procedure. Patient Education Chief Complaint/Reason for Test: Cardiac Cath Developmental Category: Adult (18-64 years) Developmentally Appropriate for Age: Yes Learning Barriers: None Education Needs: Procedure Education Method: Verbal Information Taught: Cardiac Cath Educational Evaluation: Able to repeat information Intravenous Access Time IV Size Location DC'd Fluid/Drip Rate Units RN 09:25 AM 20g 1 1/" Patent On Arrival Rt Antecubital 0.9NaCl 25 ml/hr Gabriella Patel RN Allergies ceftriaxone Vital Signs Time BP (mmHg) HR (bpm) O2 Sat. RR (bpm) LOC 09:16 AM 100 / 64 67 99 % 16 5 = Fully awake and oriented or at pre-proc level 09:34 AM / % 5 = Fully awake and oriented or at pre-proc level 09:34 AM / % 4 = Oriented but drowsy 09:50 AM / % 4 = Oriented but drowsy 10:21 AM / % 4 = Oriented but drowsy 10:21 AM / % 4 = Oriented but drowsy 09:34 AM 120 / 75 64 100 % 0 09:39 AM 117 / 74 60 92 % 16 09:44 AM 116 / 72 60 100 % 19 09:49 AM 115 / 70 60 100 % 16 09:54 AM 107 / 66 61 100 % 18 09:59 AM 113 / 58 59 98 % 15 10:04 AM 104 / 65 60 94 % 15 10:10 AM 126 / 72 66 97 % 16 10:14 AM 120 / 75 66 100 % 14 10:19 AM 128 / 73 64 98 % 28 10:24 AM 122 / 73 58 95 % 16 10:29 AM 124 / 77 58 95 % 17 10:34 AM 115 / 74 % Procedural Medications Time Medication Dose Units Method Given By 09:34 AM Oxygen 4 L/min nasal cannula Rio Curran RN 09:36 AM Versed 2 mg Intravenous Rio Curran RN 09:51 AM Lidocaine 2% 10 ml Subcutaneous Rudy Bermeo DO 09:52 AM Oxygen 2 L/min nasal cannula Rio Curran RN 10:03 AM Angiomax 0.75mg/kg bolus: 7.5 ml Intravenous Rio Curran RN 10:03 AM Angiomax 1.75mg/kg/hr: 17.9 ml Intravenous Rio Curran RN 10:25 AM Brilinta 180 mg Orally Rio Curran RN 10:25 AM Angiomax 1.75mg/kg/hr: Dc'd Rio Curran RN ASA Classification: CLASS II- Mild systemic disease (i.e. well-controlled diabetes, hypertension, asthma, cigarette smoking) Zan Score Preprocedure Postprocedure Activity 2- Moves 4 extremities sustained head lift Activity 2- Moves 4 extremities sustained head lift Circulation 2- SBP +/= 20 points of pre-anesthetic level Circulation 2- SBP +/= 20 points of pre-anesthetic level Consciousness 2- Awake and alert oriented x 3 Consciousness 2- Awake and alert oriented x 3 O2 Saturation 2- Able to maintain O2 satruation of 92% on room air O2 Saturation 2- Able to maintain O2 satruation of 92% on room air Respiratory 2- Able to deep breathe and cough well Respiratory 2- Able to deep breathe and cough well Total Score 10 Total Score 10 Contrast Agent: Isovue Diagnostic Contrast: 125 ml Total Contrast: 125 ml Fluoro Dose: 229 mGy Procedure Log Time Note Enter By 09:25 AM CathStat 09:25 AM Pt arrived to laboratory specialist 2 at 09:25 twilson :25 AM Physician arrived :25 twilson : AM Meet and jes completed twilson :25 AM Sign in performed according to hospital policy. twilson 09:25 AM Procedure start 09:25 twilson :34 AM Vitals capture started with the following parameters, Patient=Adult, Interval=5 min, Initial Xzzlednm=958 mmHg, Deflation Rate=5 mmHg, Cuff placed on Right Arm 09:34 AM Patient charges- Angio tray pack, Navilyst 3mm J, Pulse Oximetry and ACIST tubing and transducer twilson :34 AM Case Delayed no twilson :34 AM Hair removed from procedure site in procedure lab using clippers. Bilateral groin prepped with Chloraprep by Gabriella Patel RN, safety strap applied then patient was draped. Skin intact. twilson :34 AM ASA Class CLASS II- Mild systemic disease (i.e. well-controlled diabetes, hypertension, asthma, cigarette smoking) twilson :34 AM Time: 09:34 Patient comfortable and pain free: Yes twilson :34 AM Time: 09:34LOC: 5 = Fully awake and oriented or at pre-proc level twilson :34 AM HR=64 bpm, VVAR=432/75 mmhg, JaB6=114.0 %, Resp=0 B/min 09:35 AM Time: 09:34 Oxygen on at 4 L/min per nasal cannula by Rio Curran RN twilson :36 AM Time: 09:36 Versed 2 mg Intravenous Given by Rio Curran RN twilson 09:37 AM Brittaney Huizar RT (R) Position: Monitor Time in: :37 twilson 09:37 AM Gabriella Patel RN Position: Pl Sql Developer Time in: :37 twilson 09:37 AM Rio Curran RN Position: Pl Sql Developer Time in: :37 twilson 09:37 AM Brittaney Hoyt RT (R) Position: Scrub Time in: 09:37 twilson 09:38 AM Recorded ECG: HR=62 Condition=Condition 1 09:39 AM HR=60 bpm, HGVD=062/74 mmhg, SpO2=92.0 %, Resp=16 B/min 09:44 AM HR=60 bpm, VSTT=588/72 mmhg, HuC0=678.0 %, Resp=19 B/min 09:49 AM Pressure channel 4 zeroed. 09:49 AM Time: 09:34 Patient comfortable and pain free: Yes twilson 09:49 AM HR=60 bpm, KWBB=827/70 mmhg, RfQ5=080.0 %, Resp=16 B/min 09:50 AM Pressure channel 2 zeroed. 09:50 AM Time: 09:34LOC: 4 = Oriented but drowsy twilson 09:51 AM Time out performed according to hospital policy twilson 09:51 AM Time: 09:51 10 ml Lidocaine 2% to right groin Subcutaneous Given by Rudy Bermeo DO twilson 09:51 AM Clinical Presentation: Non-STEMI twilson 09:53 AM Time: 09:52 Oxygen on at 2 L/min per nasal cannula by Rio Curran RN twilson 09:53 AM Micro-Introducer Kit utilized for sheath placement twilson 09:54 AM HR=61 bpm, HPJR=070/66 mmhg, UwC7=433.0 %, Resp=18 B/min 09:55 AM Access obtained by percutaneous puncture. 6Fr 10cm Terumo Crawford sheath placed in right Femoral artery. [id number] twilson 09:55 AM 5Fr FR 4 catheter inserted over the wire DN twilson 09:55 AM Catheter selectively placed in left ventricle. 10/10 mls contrast hand injection. twilson 09:55 AM Wire removed, intact. twilson 09:56 AM Recorded Pressure: LV, HR=63, Condition=Condition 1 (Left Ventricle) LV 108/5/12 09:56 AM Recorded Pressure: LV, Ao, HR=61, Condition=Condition 1 (Left Ventricle) LV 104/6/12, (Aorta) Ao 109/62/81 09:56 AM RCA angiography performed in multiple views. twilson 09:57 AM Wire reinserted. twilson 09:57 AM Catheter removed, intact. twilson 09:58 AM 5Fr FL 4 catheter inserted over the wire DN twilson 09:58 AM Wire removed, intact. twilson 09:58 AM Recorded Pressure: Ao, HR=61, Condition=Condition 1 (Aorta) Ao 107/61/79 09:58 AM LCA angiography performed in multiple views. twilson 09:59 AM Recorded Pressure: Ao, HR=60, Condition=Condition 1 (Aorta) Ao 102/56/74 09:59 AM HR=59 bpm, TXFR=191/58 mmhg, SpO2=98.0 %, Resp=15 B/min 10:01 AM Wire reinserted and catheter removed. twilson 10:01 AM PCI Status Urgent twilson 10:01 AM PCI Indication: PCI for high risk Non-STEMI or unstable angina twilson 10: AM Inflation device was opened. twilson 10: AM Coronary Dominance: right twilson 10:02 AM 6Fr JR 4 Cordis guide catheter was used to cannulate the PCI vessel successfully. reused? No twilson 10:02 AM Bed management called to request 2N bed twilson 10:03 AM Time: 10:03 Angiomax 0.75mg/kg bolus: 7.5 ml Intravenous Given by Rio Curran RN Mccarthy pump twilson 10:04 AM Time: 10:03 Angiomax 1.75mg/kg/hr: 17.9 ml Intravenous Given by Rio Curran RN Mccarthy pump twilson 10:04 AM Recorded Pressure: Ao, HR=59, Condition=Condition 1 (Aorta) Ao 99/57/74 10:04 AM .014 ChoICE PT Extra Support 300cm guide wire across target lesion- successful. reused? No twilson 10:04 AM HR=60 bpm, EMZG=695/65 mmhg, SpO2=94.0 %, Resp=15 B/min 10:05 AM Time: 09:50LOC: 4 = Oriented but drowsy twilson 10:05 AM Time: 09:49 Patient comfortable and pain free: Yes twilson 10:06 AM 2.5mm x 20mm Synergy drug-eluting stent across target lesion- successful Lot #[id number] twilson 10:07 AM Stent deployed @ 18 evaristo for 22 seconds twilson 10:07 AM Stent delivery system removed intact. twilson 10:07 AM PCI lesion in Mid RCA. Pre Stenosis: 80 Pre MAMI Flow: 3: Complete and Brisk Flow/Perfusion twilson 10:07 AM Right Coronary, Right Posterior Descending Arteries with Right Posterolateral and Acute Marginal branches with 80 % stenosis. If graft is supplying this area, 0 % stenosis twilson 10:07 AM Recorded Pressure: Ao, HR=64, Condition=Condition 1 (Aorta) Ao 111/63/83 10:08 AM Guide wire removed intact. twilson 10:09 AM J-wire reinserted and guide catheter removed. twilson 10:09 AM 6Fr JL4 Cordis guide catheter was used to cannulate the PCI vessel successfully. reused? No twilson 10:10 AM HR=66 bpm, WXWV=732/72 mmhg, SpO2=97.0 %, Resp=16 B/min 10:10 AM Recorded Pressure: Ao, HR=66, Condition=Condition 1 (Aorta) Ao 119/67/89 10:12 AM Jwire removed and guidewire reinserted. twilson 10:13 AM PCI lesion in Proximal Circumflex. Pre Stenosis: 80 Pre MAMI Flow: 3: Complete and Brisk Flow/Perfusion twilson 10:13 AM PCI lesion in Mid Circumflex. Pre Stenosis: 70 Pre MAMI Flow: 3: Complete and Brisk Flow/Perfusion twilson 10:13 AM Circumflex, Obtuse Marginal, Left Posterior Descending, and Left Posterolateral Coronary Arteries with 80 % stenosis. If graft is supplying this area, 0 % stenosis twilson 10:13 AM Recorded Pressure: Ao, HR=65, Condition=Condition 1 (Aorta) Ao 122/69/91 10:14 AM 2.5mm x 12mm Synergy drug-eluting stent across target lesion- successful Lot #[id number] twilson 10:14 AM HR=66 bpm, OSJY=049/75 mmhg, EuT0=741.0 %, Resp=14 B/min 10:15 AM Stent deployed @ 14 evaristo for 19 seconds twilson 10:15 AM Recorded Pressure: Ao, HR=66, Condition=Condition 1 (Aorta) Ao 109/61/82 10:16 AM Stent delivery system removed intact. twilson 10:17 AM 3.0mm x 8mm Synergy drug-eluting stent across target lesion- successful Lot #[id number] twilson 10:19 AM Recorded Pressure: Ao, HR=60, Condition=Condition 1 (Aorta) Ao 111/69/87 10:19 AM HR=64 bpm, JXOG=859/73 mmhg, SpO2=98.0 %, Resp=28 B/min 10:19 AM Stent deployed @ 18 evaristo for 20 seconds twilson 10:20 AM Stent delivery system removed intact. twilson 10:21 AM Time: 10:21 Patient comfortable and pain free: Yes twilson 10:21 AM Time: 10:21LOC: 4 = Oriented but drowsy twilson 10: AM 3.0 mm x 8mm NC Emerge balloon across target lesion- successful. reused? No twilson 10: AM Balloon inflated @ 20 evaristo for 18 seconds twilson 10:23 AM Balloon catheter removed intact. twilson 10:23 AM Guide wire removed intact. twilson 10:24 AM Bolus angiogram of right Femoral complete: 10/10 mls hand injection twilson 10:24 AM HR=58 bpm, SWPP=457/73 mmhg, SpO2=95.0 %, Resp=16 B/min 10:25 AM Guide catheter removed intact. twilson 10: AM Time: 10:25 Brilinta 180 mg Orally Given by Rio Curran RN twilson 10: AM Time: 10:25 Angiomax 1.75mg/kg/hr: Dc'd Given by Rio Curran RN Mccarthy pump twilson 10:26 AM Procedure completed at 10:26 twilson 10:29 AM Lesion found in Mid LAD. Pre Stenosis: 40 Pre MAMI Flow: twilson 10:29 AM HR=58 bpm, DMFI=685/77 mmhg, SpO2=95.0 %, Resp=17 B/min 10:29 AM Mid/Distal Left Anterior Descending Coronary Artery and diagonal branches with 40% stenosis. If graft is supplying this area, 0 % stenosis twilson 10:31 AM Sign out completed: Radiation Dose 229.21 mGy Fluoro Time: 7.4 Isovue 370 - 200ml contrast 125 ml given by Rudy Bermeo DO. Complications: NoneCardiac Rehab Consult needed: YesConfirmed administered medications: Yes twilson 10:31 AM Isovue 370 - 200ml,1 Bottle(s) used. twilson 10:32 AM Arterial sheath pulled, Angio-seal closure device used and was Successful [id number] S/N. twilson 10:34 AM Family placed in consult room. twilson 10:34 AM ZNNU=220/74 mmhg 10:37 AM 10:37 Post Pulses Bilateral DP & PT 2+ twilson 10:38 AM Information taught PCI and Angioseal twilson 10:38 AM Education needs Procedure, Plan of Care, and Responsibilities of Patient in Care twilson 10:38 AM Time: 10:21LOC: 4 = Oriented but drowsy twilson 10:38 AM Time: 10:21 Patient comfortable and pain free: Yes twilson 10:38 AM Post Blood Pressure 115/74 twilson 10:38 AM Learning barriers :None twilson 10:38 AM Education Methods Verbal twilson 10:38 AM Education evaluation Able to repeat information twilson 10:39 AM Site status No bleeding/hematoma - Rt Groin as reported by Sites, Brittaney RT (R) at 10:38 twilson 10:39 AM Opsite applied twilson 10:39 AM Plavix, Effient or Brilinta given Yes twilson 10:39 AM Delay to floor No twilson 10:45 AM Report given to Roderick RUIZ Pt taken to E Room #34. 10:44 twilson 10:46 AM Patient out of room: 10:46 twilson Complications Complication None Hemodynamics Pressures Site Systolic/A Wave Diastolic/V Wave Mean LV 108 5 12 LV 104 6 12 AO 109 62 81 AO 107 61 79 AO 102 56 74 AO 99 57 74 AO 111 63 83 AO 119 67 89 AO 122 69 91 AO 109 61 82 AO 111 69 87 Post Procedure Information Blood Pressure: 115/74 mmHg Post procedural instructions were given Closure Device Time Device Success/Fail 09/19/2017 10:34:00 AM Angio-Seal VIP Successful Site Checks Time Location Status Staff Sheath In? Note 10:38 AM Rt Groin No bleeding/hematoma Sites, Brittaney RT (R) Pulses Time Site Pre-Procedure Post-Procedure Note 09/19/2017 9:25:00 AM Bilateral DP & PT 2+ 10:37:00 AM Bilateral DP & PT 2+ Updated by RT Anirudh Moore) on 09/19/2017 10:47:59 AM electronically signed on 09/19/2017 10:50:22 AM with status of Final
[2017-09-19] MEDS: Aspirin Enteric Coated 81 MG Tablet PO SCH (11:46)
[2017-09-19] MEDS: *HR* LORazepam 0.5 MG TABLET PO SCH ×2 (11:47→22:00)
[2017-09-19] MEDS ORDERED: Furosemide 40 MG/4 ML VIAL IVP ONE (13:52)
[2017-09-19] MEDS ORDERED: *HR* LORazepam 2 MG/ML VIAL IVP ONE (14:34)
--- NOTE | 2017-09-19 18:52 | Internal Med Progress Note ---
Date of Encounter: 09/19/17 Time of Encounter: 11:30 - Assessment and plan (1) NSTEMI (non-ST elevated myocardial infarction) Current Visit: Yes Status: Acute Assessment and plan: Cath today and 3 stents placed. Monitor overnight. (2) Acute pulmonary edema Current Visit: Yes Status: Acute Assessment and plan: Pt with significant dyspnea this afternoon. IV Lasix given with improvement. (3) COPD (chronic obstructive pulmonary disease) Current Visit: Yes Status: Chronic Assessment and plan: Monitoring closely. Aerosols. May need steroids started. Qualifiers: COPD type: emphysema Emphysema type: other Qualified Code(s): J43.8 - Other emphysema (4) CAD (coronary artery disease) Current Visit: Yes Status: Chronic Assessment and plan: Chronic issues. Qualifiers: Coronary Disease-Associated Artery/Lesion type: [place] artery [place] vs. transplanted heart: [place] heart Associated angina: without angina Qualified Code(s): I25.10 - Atherosclerotic heart disease of [place] coronary artery without angina pectoris (5) Anxiety about health Current Visit: Yes Status: Acute Assessment and plan: Pt has had significant anxiety today. PRN Ativan given. - Subjective Interval history: Ms Shen is currently admitted for chest pain. She underwent cath today and got 3 stents. She remains moderate to high risk due to potential for worsening cardiac status. Ms Shen has been having some dyspnea and anxiety today. Tolerated procedure. Some improvement with Lasix and Ativan. No CP. No fever or chills. No GI issues. - Constitutional Vitals: Temp Pulse Resp BP Pulse Ox 97.4 F L 61 15 91/66 95 09/19/17 16:00 09/19/17 16:00 09/19/17 16:00 09/19/17 16:00 09/19/17 16:00 General appearance: Present: A&O X 3, answers questions appropriately - Head Head exam: Present: normocephalic - Eye Eye exam: Present: conjuntiva pink - ENT ENT exam: Present: mucous membranes moist - Respiratory Respiratory exam: Present: CTAB. Absent: rhonchi, wheezes - Cardiovascular Cardiovascular exam: Present: RRR. Absent: tachycardia - GI/Abdominal GI/Abdominal exam: Present: soft. Absent: tenderness - Extremities Exam Extremities exam: Present: warm. Absent: tenderness - Neurological Exam Neurological exam: Present: alert, oriented X3, no focal deficits - Psychiatric Psychiatric exam: Present: anxious - Skin Skin exam: Present: warm. Absent: rash Internal Medicine: Result - Labs CBC & Chem 7: 09/19/17 00:10 09/19/17 00:10 Labs: Short CBC 09/19/17 Range/Units 00:10 WBC 5.6 (4.3-11.1) K/mcL Hgb 12.6 (11.5-15.4) g/dL Hct 38.6 (35.3-44.9) % Plt Count 215 (140-400) K/mcL Neutrophils # 3.9 (1.6-8.9) K/mcL BMP 09/19/17 00:10 Sodium 137 Potassium 4.5 Chloride 102 Carbon Dioxide 30 H BUN 15 Creatinine 0.78 Glucose 132 H Calcium 9.0 Cardiac Enzymes 09/19/17 09/19/17 Range/Units 00:10 04:53 Troponin I 0.40 H* 0.38 H* (0-0.03) ng/mL - ABG Interpretation ABG results: PT/INR, D-dimer PT 10.9 Seconds (9.4-12.1) 09/18/17 17:33 D-Dimer 888 ng/mLFEU (0-500) H 09/18/17 17:33 - Impressions Impressions Echocardiogram 09/18/17 23:08 Impressions: Mildly dilated left ventricle. Mild LV systolic dysfunction, LVEF 40-45%. There are regional wall motion abnormalities, see diagram below. Mild left ventricular diastolic dysfunction. Normal right ventricular size and function. No significant valvular dysfunction. Unable to estimate RVSP due to lack of TR jet. Left Ventricular Wall Motion: Rest Echo Findings The apical inferior, mid inferior, basal inferior, mid inferior septal, basal inferior septal, apical lateral, mid anterior lateral and mid inferior lateral lorenzo were hypokinetic. All other wall segments showed normal motion. Findings: Study Quality * Suboptimal echo windows. ECG Findings * Sinus bradycardia. Left Ventricle * Mildly dilated left ventricle. * Mild LV systolic dysfunction, LVEF 40-45%. There are regional wall motion abnormalities, see diagram below. * Normal LV wall thickness. * Mild left ventricular diastolic dysfunction. Right Ventricle * Normal right ventricular size and function. Left Atrium * Normal left atrial size. Right Atrium * Normal right atrial size. Aorta * Normally sized aortic root. Pericardium * There is no pericardial effusion present. IVC * Normal IVC dimensions and inspiratory collapse. Aortic Valve * Aortic valve not well visualized. * No aortic stenosis. * No aortic regurgitation. Mitral Valve * Mildly thickened mitral valve leaflets. * No mitral stenosis. * Trace mitral regurgitation. Tricuspid Valve * Normal tricuspid valve structure. * No tricuspid stenosis. * Trace tricuspid regurgitation. * Unable to estimate RVSP due to lack of TR jet. Pulmonic Valve * Pulmonic valve not well visualized. * No pulmonic stenosis. * No pulmonic regurgitation. Consult Discharge Plan - Plan Referrals: Johanna Monge CNP [Family Provider] - Jodie Garcia CNP [Primary Care Provider] -
[2017-09-20 04:32] LABS: Hematocrit 40.5 % (35.3-44.9); Hemoglobin 13.4 g/dL (11.5-15.4); Mean Corpuscular HGB Conc 33.1 g/dL (31.6-35.5); Mean Corpuscular Hemoglobin 30.2 pg (28.0-33.3); Mean Corpuscular Volume 91.4 fL (83.0-100.0); Mean Platelet Volume 10.4 fL (9.4-12.4); Platelet Count 198 K/mcL (140-400); Red Blood Count 4.43 M/mcL (3.82-4.97); Red Cell Distribution Width 12.8 % (11.5-14.5)
[2017-09-20 04:46] LABS: BUN/Creatinine Ratio 25 (6-26); Blood Urea Nitrogen 19 mg/dL (7-20); Calcium 8.8 mg/dL (8.6-10.8); Carbon Dioxide 30 mEq/L (19-29); Chloride 102 mEq/L (98-109); Glucose 81 mg/dL (70-99); Magnesium 1.9 mg/dL (1.6-2.6); Osmolality,Calculated 291 (280-300); Potassium 3.8 mEq/L (3.5-4.5); Sodium 140 mEq/L (136-145); eGFR For African Americans > 60 (> 60); eGFR For Non-African Americans > 60 (> 60)
[2017-09-20] MEDS: Budesonide/Formoterol 80/4.5 MDI IH SCH (07:45)
[2017-09-20 08:05] VITALS: BP 107/64
[2017-09-20] MEDS ORDERED: *HR* LORazepam 0.5 MG TABLET PO SCH (09:27)
--- NOTE | 2017-09-20 09:30 | Discharge Summary ---
Date of Encounter: 09/20/17 Time of Encounter: 08:45 - Discharge Diagnosis (1) NSTEMI (non-ST elevated myocardial infarction) Priority: Primary Status: Acute (2) Acute pulmonary edema Priority: Secondary Status: Acute (3) COPD (chronic obstructive pulmonary disease) Priority: Secondary Status: Chronic Qualifiers: COPD type: emphysema Emphysema type: other Qualified Code(s): J43.8 - Other emphysema (4) CAD (coronary artery disease) Priority: Secondary Status: Chronic Qualifiers: Coronary Disease-Associated Artery/Lesion type: [place] artery [place] vs. transplanted heart: [place] heart Associated angina: without angina Qualified Code(s): I25.10 - Atherosclerotic heart disease of [place] coronary artery without angina pectoris (5) Anxiety about health Priority: Secondary Status: Chronic - Discharge Medications Prescriptions: Atorvastatin [Lipitor] 40 mg PO HS #30 tablet LORazepam [Ativan] 1 mg PO BID PRN #40 tablet PRN Reason: Anxiety Ticagrelor [Brilinta] 90 mg PO BID #60 tablet Home Medications: Albuterol Sulfate [Albuterol Inhaler] 2 puff IH Q6H PRN 09/18/17 [History] Aspirin [Lo-Dose Aspirin EC] 81 mg PO DAILY 09/18/17 [History] Citalopram [CeleXA] 20 mg PO DAILY 09/18/17 [History] Fluticasone/Salmeterol [Advair 250-50 Diskus] 1 puff IH BID 09/18/17 [History] Ipratropium/Albuterol Neb [Duoneb] 3 ml IH Q6HR PRN 09/18/17 [History] Atorvastatin [Lipitor] 40 mg PO HS #30 tablet 09/20/17 [Rx] LORazepam [Ativan] 1 mg PO BID PRN #40 tablet 09/20/17 [Rx] Ticagrelor [Brilinta] 90 mg PO BID #60 tablet 09/20/17 [Rx] Allergies/Adverse Reactions: 3 Allergy/AdvReac Type Severity Reaction Status Date / Time ceftriaxone [From Rocephin] Allergy Hives Verified 09/18/17 16:57 Procedures/tests Complete & Pending: Procedures Performed prior 72 hours Category Date Time Status CL Cardiac Catheterization [CL] Routine Hearing Therapist 09/19/17 08:12 Ordered EKG [ECG 12 lead ECG] [ECG] AM 0600 Y 09/19/17 06:00 Completed EV echocardiogram Routine Y 09/18/17 23:08 Completed Date of admission: 09/18/17 22:51 Primary care physician: Jodie Garcia Consults: 09/18/17 23:09 Consult to Cardiology [CONS] Routine Comment: Consulting Provider: Cardiology Elaine Reason for Consult: NSTEMI Call Completed: No 09/19/17 13:55 Consult to Cardiac Rehabilitation-Phase1 [CONS] Routine Comment: Reason for Consult: NSTEMI Call Completed: No Discharging clinician: Jacky Pradhan Anticipated date of discharge: 09/20/17 - Patient Status Disposition: Home, Self-Care Condition: Fair Functional capacity at discharge: independent ambulation Overall status at discharge: patient is progressing back to baseline - Discharge Instructions Follow Up With: Johanna Monge CNP [Family Provider] - Jodie Garcia CNP [Primary Care Provider] - Molly Denney DO [Resident] - (Follow up in 1-2 weeks) - Diet and Activity Activity: increase activity as tolerated Diet: advance to your usual diet Hospital course: Ms. Shen is a 61 year old female with hx of CAD s/p stents presented to ED with complaints of dyspnea. Symptoms had begun that AM. She also had mild chest discomfort radiating to jaw. In ED she was found to have abnl EKG and elevated troponin and was admitted with NSTEMI. Ms Shen [facility]. She was started on heparin drip. She had significant issues with "panic attacks" and was given Ativan. She was taken to [facility] on 09/19 and 3 stents were placed. She was given Brilinta at that time. Upon return from [facility] she was quite dyspneic and anxious. She was given IV Lasix and IV Ativan with improvement. Her echo showed EF of 40-45%. She had uneventful night after cath. Today she feels OK. No CP. Still with cough which is chronic. She is afebrile with stable vitals. At this time she will be discharged home with PO meds. Ativan was increased to 1mg BID and she was switched from Plavix to Brilinta. She will follow in cardiology office. - Time Spent with Patient Total time spent providing and/or coordinating discharge services: 41min - Constitutional Vitals: Temp Pulse Resp BP Pulse Ox 97.6 F 77 12 107/64 96 09/20/17 08:03 09/20/17 08:03 09/20/17 08:03 09/20/17 08:03 09/20/17 08:03 General appearance: Present: A&O X 3, answers questions appropriately - Head Head exam: Present: normocephalic - Eye Eye exam: Present: conjuntiva pink - ENT ENT exam: Present: mucous membranes moist - Respiratory Respiratory exam: Present: rhonchi. Absent: rales, wheezes - Cardiovascular Cardiovascular exam: Present: RRR. Absent: tachycardia - GI/Abdominal GI/Abdominal exam: Present: soft. Absent: tenderness - Extremities Exam Extremities exam: Present: warm. Absent: tenderness - Neurological Exam Neurological exam: Present: alert, oriented X3, no focal deficits - Skin Skin exam: Present: warm. Absent: rash
[2017-09-20] MEDS ORDERED: *HR* Ticagrelor 90 MG TABLET PO SCH (09:45)
[2017-09-20] MEDS: Aspirin Enteric Coated 81 MG Tablet PO SCH (09:54)
--- NOTE | 2017-09-20 12:50 | Cardiology Progress Note ---
Date of Encounter: 09/20/17 Time of Encounter: 12:00 Assessment and Plan (1) NSTEMI (non-ST elevated myocardial infarction) Current Visit: Yes Status: Acute Troponins 0.38, 0.40, 0.20--now downtrending.EKG with inferior and lateral ischemia--no prior for comparison. Symptoms of dyspnea, diaphoresis, chest and jaw pain, unresponsiveness. Chest CTA negative for PE. [facility] completed- 80% stenosis in the RCA s/p PTCA and PRAVIN, 80% stenosis pLCX artery s/p PTCA ad PRAVIN, 70% stenosis mLCX artery s/p PTCA and PRAVIN. There was a 40% stenosis in the mLAD remaining. TTE showed EF 40-45%. Importance of DAPT with asa and brilinta for minimum of one year uninterrupted reviewed with patient and family. They voiced understanding. Healthy heart diet and exercise reviewed. Cardiac rehab discussed. Continue statin therapy. Free 30 day brilinta card given. RX called to [facility] pharmacy per hospitalist. 1 week hospital f/u will be coordinated by [facility]. BB held secondary to hypotension. Consider starting at f/u. Activity restrictions reviewed:No lifting over 10 lbs for one week. No driving for a week. No tub baths for one week. She can take showers. (2) CAD (coronary artery disease) Current Visit: Yes Status: Chronic ASA, Statin, brilinta. H/o of PCI 7-8 years ago at [facility] prior to this. See plan above. Smoking cessation. Qualifiers: Coronary Disease-Associated Artery/Lesion type: [place] artery [place] vs. transplanted heart: [place] heart Associated angina: without angina Qualified Code(s): I25.10 - Atherosclerotic heart disease of [place] coronary artery without angina pectoris (3) Cardiomyopathy Current Visit: Yes Status: Acute TTE- Sytolic function mildly reduced at 40-45%, regional wall motion abnormalities. Mild left ventricular diastolic dysfunction. Normal right ventricular size and function. No significant valvular dysfunction. Unable to estimate RVSP due to lack of TR jet.. CHF education given. Currently euvolemic. BNP 65. Daily weights and low sodium diet reviewed. No beta-mely or jose francisco-inhibitor secondary to hypotension. Consider adding at f/u. Qualifiers: Cardiomyopathy type: ischemic Qualified Code(s): I25.5 - Ischemic cardiomyopathy Discussion w patient/family: The assessment and plan as outlined above was discussed with the patient and/or family members who expressed understanding and agreement. All questions were answered. Thank you for involving us in the care of your patient. Please call with any questions. Subjective Principal diagnosis: NSTEMI Interval history: Patient sitting on side of bed. Daughter at bedside. Denies recurrent chest pain or SOB. Denies problem with right groin access site. Objective Vital Signs Temp Pulse Resp BP Pulse Ox 09/20/17 08:03 97.6 F 77 12 107/64 96 09/20/17 05:24 98.4 F 64 20 94/64 95 09/20/17 05:22 16 98 09/19/17 20:21 17 90 09/19/17 19:09 97.8 F 70 17 98/61 93 09/19/17 16:00 97.4 F L 61 15 91/66 95 Intake and Output 09/19/17 09/20/17 09/20/17 23:59 07:59 15:59 Intake Total 240 / 240 120 / 120 Output Total 200 / 200 Balance 240 / 240 -80 / -80 Intake: Oral 240 / 240 120 / 120 Output: Urine 200 / 200 Other: Meal Breakfast Percent of Meal Consumed 95% Stool Size Moderate Stool Consistency soft Stool Characteristics Normal for Patient Stool Color Brown # Voids 10 Weight 51.5 kg Patient Weight 09/20/17 23:59 Weight 51.5 kg General: Conversant, No Apparent Distress HEENT: Atraumatic, Normocephaly, Mucus Membranes Moist Neck: No JVD, Normal carotid pulses Cardiac: Reg Rate and Rhythm, Normal S1 and S2, No Murmur Lungs: Normal Breath Sounds, No Wheeze, Rales, Rhonchi, Other (Posterior breath sounds diminished. Patient is on home O2) Neuro: Alert and responsive, No focal deficits noted Abdomen: Soft, Non-Tender Skin: No rashes noted on visualized skin Musculoskeletal: No Chest Wall Tenderness Extremities: No Clubbing, No Cyanosis, No Edema, Normal Pulses, Other (Right groin dressing removed. No hematoma. No redness. No ecchymosis. ) Results 09/20/17 04:18 09/20/17 04:18 Lab Results 09/20/17 09/20/17 04:18 04:18 WBC 9.8 D Hgb 13.4 Hct 40.5 Plt Count 198 Sodium 140 Potassium 3.8 Chloride 102 Carbon Dioxide 30 H BUN 19 Creatinine 0.75 Glucose 81 Calcium 8.8 Magnesium 1.9 - Imaging and Cardiology Echo: report reviewed Cardiac cath: report reviewed - EKG Interpretation EKG results cardiology: personally reviewed Consult Discharge Plan - Plan Instructions: Lorazepam (By mouth), Atorvastatin (By mouth), Ticagrelor (By mouth), Myocardial Infarction (DC), Syncope (DC), Coronary Intravascular Stent Placement (DC), Chronic Obstructive Pulmonary Disease (DC), Coronary Intravascular Stent Placement, Home Visits Nurse (GEN) Referrals: Johanna Monge CNP [Family Provider] - Layton Head MD [Partnered Physician] - (the office will call you with an appointment. if they do not call you by next week call them ) Jodie Garcia CNP [Primary Care Provider] - Molly Denney DO [Resident] - (Follow up in 1-2 weeks) Prescriptions: Atorvastatin [Lipitor] 40 mg PO HS #30 tablet LORazepam [Ativan] 1 mg PO BID PRN #40 tablet PRN Reason: Anxiety Ticagrelor [Brilinta] 90 mg PO BID #60 tablet
--- NOTE | 2017-09-20 19:23 | Electrocardiograph Report ---
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
--- NOTE | 2017-09-21 06:25 | Electrocardiograph Report ---
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
== END 2017-09-20 12:45 | disposition home or self-care (01) | DRG 174 ==
LOC: EMEROO 16:29 → 2NENU 16:29
PROVIDERS: ADMIT Hospitalist; ATTEND Internal Medicine

== ENCOUNTER 2017-10-04 09:47 | Inpatient (IN) ==
[2017-10-04] MEDS ORDERED: *HR* Heparin 5,000 UNIT/ML VIAL IVP ONE (12:43)
[2017-10-04] MEDS ORDERED: *HR* Heparin 5,000 UNIT/ML VIAL IVP PRN (12:43)
[2017-10-04 13:51] LABS: Basophils % 0.3 %; Eosinophils % 0.3 %; Hematocrit 40.6 % (35.3-44.9); Immature Granulocytes % 0.3 % (0-4); Lymphocytes # 0.7 K/mcL (0.6-4.6); Lymphocytes % 19.4 %; Mean Corpuscular Volume 93.8 fL (83.0-100.0); Mean Platelet Volume 10.6 fL (9.4-12.4); Monocytes # 0.1 K/mcL (0.0-1.3); Monocytes % 4.1 %; Neutrophils # 2.6 K/mcL (1.6-8.9); Platelet Count 202 K/mcL (140-400); Red Blood Count 4.33 M/mcL (3.82-4.97); Red Cell Distribution Width 12.9 % (11.5-14.5); Segmented Neutrophils % 75.6 %
[2017-10-04 13:56] LABS: Prothrombin Time 11.2 Seconds (9.4-12.1)
[2017-10-04 13:59] LABS: Activated Partial Thrombo Time 37.8 Seconds (26.0-36.0)
[2017-10-04] MEDS ORDERED: 0.9 % Sodium Chloride 1,000 ML ONE (14:03)
[2017-10-04] MEDS ORDERED: 0.9 % Sodium Chloride 500 ML ONE (14:05)
--- NOTE | 2017-10-04 14:07 | Internal Med History&Physical ---
Date of Encounter: 10/04/17 Time of Encounter: 14:03 Assessment and Plan (1) NSTEMI (non-ST elevated myocardial infarction) Current visit: Yes Status: Acute EKG shows deep T wave inversions in the inferolateral leads. Will continue to antiplatelet therapy with aspirin and brilinta. Continue heparin drip. Cardiology consultation. (2) COPD (chronic obstructive pulmonary disease) Current visit: No Status: Chronic Continue [id number] nebulizer treatment Qualifiers: Qualified Code(s): J44.9 - Chronic obstructive pulmonary disease, unspecified Internal Medicine - H&P: HPI Chief complaint: SOB chest pain History of present illness: Ms. Shen is a 61 year old female with history of COPD not on home O2, coronary artery disease with recent PCI to the circumflex and RCA presented to [facility] emergency room with a man complaining of shortness of breath and chest tightness. While she was in the emergency room she started experiencing episodes of retrosternal chest pain that improved with sublingual nitroglycerin. On this patient was transferred to our facility. Patient is compliant with aspirin and brilinta. Patient denies increase in sputum production or change in color sputum. Patient denies any fevers of chills. Electrocardiogram shows deep T wave inversions in the inferolateral leads but no ST segment elevation Past Med Surg Social Fam HX - Past Medical History Medical history: COPD, coronary artery disease, myocardial infarction Psychiatric history: anxiety - Past Surgical History Surgical History: angioplasty/stent, other - Social History Smoking Status: Current every day smoker Smokeless Tobacco Status: No Alcohol use: none Drug use: none Internal Medicine - H&P: Meds Aspirin [Lo-Dose Aspirin EC] 81 mg PO DAILY 09/18/17 [History] Citalopram [CeleXA] 20 mg PO DAILY 09/18/17 [History] Fluticasone/Salmeterol [Advair 250-50 Diskus] 1 puff IH BID 09/18/17 [History] Ipratropium/Albuterol Neb [Duoneb] 3 ml IH Q6HR PRN 09/18/17 [History] Atorvastatin [Lipitor] 40 mg PO HS #30 tablet 09/20/17 [Rx] LORazepam [Ativan] 1 mg PO BID PRN #40 tablet 09/20/17 [Rx] Ticagrelor [Brilinta] 90 mg PO BID #60 tablet 09/20/17 [Rx] Albuterol Sulfate [Proair Hfa] 2 puff IH Q4HR PRN 10/04/17 [History] 3 Allergy/AdvReac Type Severity Reaction Status Date / Time ceftriaxone [From Rocephin] Allergy Hives Verified 09/18/17 16:57 All Systems PM: A 10-system review of systems was performed and is negative for pertinent findings except as documented above in the HPI. Review of systems: 10 point review of systems is negative except for HPI - Constitutional Vitals: Temp Pulse Resp BP Pulse Ox 98.1 F 70 17 97/51 93 10/04/17 11:49 10/04/17 11:49 10/04/17 11:49 10/04/17 11:49 10/04/17 11:49 Exam: Gen.: patient is alert oriented times 3 cardiac: normal S1 S2 no additional sounds or murmurs chest: slightly diminished air entry. scattered expiratory wheeze abdomen soft nontender nondistended normal bowel sounds lower extremity no swelling. Neuro: no new focal deficits Internal Med - H&P Results - Labs CBC & Chem 7: 10/04/17 13:23 Labs: Short CBC 10/04/17 Range/Units 13:23 WBC 3.4 L (4.3-11.1) K/mcL Hgb 13.0 (11.5-15.4) g/dL Hct 40.6 (35.3-44.9) % Plt Count 202 (140-400) K/mcL Neutrophils # 2.6 (1.6-8.9) K/mcL
[2017-10-04 14:08] LABS: BUN/Creatinine Ratio 19 (6-26); Blood Urea Nitrogen 14 mg/dL (7-20); Calcium 9.1 mg/dL (8.6-10.8); Carbon Dioxide 27 mEq/L (19-29); Chloride 104 mEq/L (98-109); Creatine Kinase 137 Units/L (29-168); Glucose 159 mg/dL (70-99); Magnesium 1.9 mg/dL (1.6-2.6); Osmolality,Calculated 294 (280-300); Potassium 4.9 mEq/L (3.5-4.5); Sodium 140 mEq/L (136-145); eGFR For African Americans > 60 (> 60); eGFR For Non-African Americans > 60 (> 60)
[2017-10-04] MEDS: Heparin 25,000 UNIT/500 ML D5W 25,000 UNIT/500 ML MLS IVC SCH (14:18)
[2017-10-04] MEDS: Ipratropium/Albuterol Neb 3 ML IH SCH ×2 (15:27→21:11)
[2017-10-04] MEDS: *HR* LORazepam 0.5 MG TABLET PO PRN (17:04)
[2017-10-04] MEDS: *HR* Heparin 5,000 UNIT/ML VIAL IVP PRN (20:52)
[2017-10-04] MEDS: *HR* Ticagrelor 90 MG TABLET PO SCH (20:53)
[2017-10-04] MEDS ORDERED: Budesonide/Formoterol 80/4.5 MDI IH SCH (21:00)
[2017-10-05 01:47] LABS: Basophils # 0.1 K/mcL (0.0-0.2); Basophils % 0.6 %; Eosinophils # 0.3 K/mcL (0.0-0.6); Eosinophils % 3.6 %; Hematocrit 35.8 % (35.3-44.9); Hemoglobin 11.5 g/dL (11.5-15.4); Immature Granulocytes % 0.1 % (0-4); Lymphocytes # 2.6 K/mcL (0.6-4.6); Lymphocytes % 31.7 %; Mean Corpuscular HGB Conc 32.1 g/dL (31.6-35.5); Mean Corpuscular Hemoglobin 30.1 pg (28.0-33.3); Mean Corpuscular Volume 93.7 fL (83.0-100.0); Mean Platelet Volume 10.5 fL (9.4-12.4); Monocytes # 0.7 K/mcL (0.0-1.3); Neutrophils # 4.6 K/mcL (1.6-8.9); Platelet Count 188 K/mcL (140-400); Red Blood Count 3.82 M/mcL (3.82-4.97); Red Cell Distribution Width 13.1 % (11.5-14.5)
[2017-10-05 01:59] LABS: BUN/Creatinine Ratio 22 (6-26); Blood Urea Nitrogen 15 mg/dL (7-20); Calcium 8.6 mg/dL (8.6-10.8); Carbon Dioxide 28 mEq/L (19-29); Chloride 106 mEq/L (98-109); Glucose 94 mg/dL (70-99); Magnesium 1.8 mg/dL (1.6-2.6); Osmolality,Calculated 291 (280-300); Potassium 4.1 mEq/L (3.5-4.5); Sodium 140 mEq/L (136-145); eGFR For African Americans > 60 (> 60); eGFR For Non-African Americans > 60 (> 60)
[2017-10-05] MEDS: Ipratropium/Albuterol Neb 3 ML IH SCH ×4 (03:08→19:55)
[2017-10-05] MEDS: *HR* LORazepam 0.5 MG TABLET PO PRN ×2 (03:23→21:05)
--- NOTE | 2017-10-05 08:40 | Cardiology Consult Note ---
Date of Encounter: 10/05/17 Time of Encounter: 08:40 Assessment and Plan (1) NSTEMI (non-ST elevated myocardial infarction) Current Visit: Yes Status: Acute Troponin 0.67, 2.66. Recent NSTEMI 09/19 with PRAVIN to mid RCA and prox and mid LCx. Pt denies any missed doses of DAPT (ASA and Brilinta) aside from yesterday morning when she was in ED. Symptoms of dyspnea, diaphoresis and chest pain, relieved with one nitro. She is still short of breath, but denies chest pain. Recommend [facility]. R/B/A discussed. Pt agrees to proceed. She is currently still short of breath. Will trial laying flat for 30 minutes to confirm she can tolerate laying flat for cath. Echo 09/19 EF 40-45%. Recheck limited echo. Currently on heparin gtt. Continue ASA, Brilinta, Statin, BB. (2) Cardiomyopathy Current Visit: No Status: Acute EF 40-45% with regional wall motion abnormalities on 09/19/17. Recheck limited echo to evaluate EF. Continue BB. No ACEi due to borderline BP. Qualifiers: Cardiomyopathy type: ischemic Qualified Code(s): I25.5 - Ischemic cardiomyopathy (3) CAD (coronary artery disease) Current Visit: No Status: Chronic As above, ASA, Brilinta, Statin, BB. Qualifiers: Coronary Disease-Associated Artery/Lesion type: [place] artery [place] vs. transplanted heart: [place] heart Associated angina: without angina Qualified Code(s): I25.10 - Atherosclerotic heart disease of [place] coronary artery without angina pectoris Discussion w patient/family: The assessment and plan as outlined above was discussed with the patient and/or family members who expressed understanding and agreement. All questions were answered. Thank you for involving us in the care of your patient. Please call with any questions. I will discuss all the above with Dr. Jorgnesen and make changes as necessary. History of Present Illness Consult date: 10/05/17 Requesting physician: Mason Alexander Consult reason: NSTEMI Chief complaint: dyspnea, chest pain History of present illness: Ms. Shen is a 61 year old female with PMH of COPD, tobacco abuse, CAD with recent NSTEMI and PCI to the LCx and RCA on 09/19 that presented to [facility] emergency room via EMS yesterday morning with chief complaint of dyspnea and diaphoresis when she woke at 4AM. While in the ED, she had chest discomfort, heaviness with neck pain relieved with one nitro. She reports she has been compliant with ASA and Brilinta, no missed doses other than yesterday morning when she was in ED. She is chest pain free currently, but still short of breath. Echo 09/19/17 EF 40-45% with regional wall motion abnormalities, mild LVDD. EKG inferolateral ischemia, unchanged from prior. Troponin 0.67, 2.66. Cardiology consulted for further recommendations. Past Med Surg Social Fam HX - Past Medical History Medical history: COPD, coronary artery disease, myocardial infarction Psychiatric history: anxiety - Past Surgical History Surgical History: angioplasty/stent, other - Social History Smoking Status: Current every day smoker Smokeless Tobacco Status: No Alcohol use: none Drug use: none Medications and Allergies Aspirin [Lo-Dose Aspirin EC] 81 mg PO DAILY 09/18/17 [History] Citalopram [CeleXA] 20 mg PO DAILY 09/18/17 [History] Fluticasone/Salmeterol [Advair 250-50 Diskus] 1 puff IH BID 09/18/17 [History] Ipratropium/Albuterol Neb [Duoneb] 3 ml IH Q6HR PRN 09/18/17 [History] Atorvastatin [Lipitor] 40 mg PO HS #30 tablet 09/20/17 [Rx] LORazepam [Ativan] 1 mg PO BID PRN #40 tablet 09/20/17 [Rx] Ticagrelor [Brilinta] 90 mg PO BID #60 tablet 09/20/17 [Rx] Albuterol Sulfate [Proair Hfa] 2 puff IH Q4HR PRN 10/04/17 [History] 3 Allergy/AdvReac Type Severity Reaction Status Date / Time Amoxicillin Allergy Hives Verified 10/04/17 15:57 ceftriaxone [From Rocephin] Allergy Hives Verified 09/18/17 16:57 levofloxacin [From Levaquin] Allergy Hives Verified 10/04/17 15:57 sulfamethoxazole AdvReac Itching Verified 10/04/17 16:52 [From Bactrim] trimethoprim [From Bactrim] AdvReac Itching Verified 10/04/17 16:52 All Systems Review: A 10-system review of systems was performed and is negative for pertinent findings except as documented above in the HPI. - Cardiovascular Cardiovascular: as per HPI, chest pain at rest, chest pain with exertion, diaphoresis, dyspnea at rest, dyspnea on exertion, radiating jaw, neck or arm pain, lightheadedness - Respiratory Respiratory: cough, dyspnea, wheezing Physical Examination Vital Signs, Last 4 Hours Temp Pulse Resp BP Pulse Ox 10/05/17 07:35 97.6 F 59 18 104/60 98 Vital Signs Temp Pulse Resp BP Pulse Ox 10/05/17 07:35 97.6 F 59 18 104/60 98 10/05/17 04:29 97.8 F 72 17 152/70 92 10/05/17 03:08 18 96 10/04/17 23:55 98.3 F 73 15 109/65 94 10/04/17 21:37 97.6 F 86 13 108/52 95 10/04/17 21:09 16 95 10/04/17 15:59 97.6 F 74 17 104/61 95 10/04/17 15:27 16 94 10/04/17 11:49 98.1 F 70 17 97/51 93 Intake and Output 10/04/17 10/05/17 10/05/17 23:59 07:59 15:59 Intake Total Output Total 0 / 0 Balance Intake: IV Fluids Heparin 25,000 UNIT/500 ML D5W 25,000 unit In 500 ml @ 12 UNIT /KG/HR 12.192 mls/hr IVC .Q24H [facility] Rx#:[id number] Output: Urine 0 / 0 Other: # Voids 1 Weight 51.1 kg Patient Weight 10/05/17 23:59 Weight 51.1 kg General: Conversant, No Apparent Distress HEENT: Atraumatic, Normocephaly, Mucus Membranes Moist Neck: Normal carotid pulses Cardiac: Reg Rate and Rhythm, Normal S1 and S2, No Murmur Lungs: Other (wheezes noted bilaterally) Neuro: Alert and responsive, No focal deficits noted Abdomen: Soft, Non-Tender Skin: No rashes noted on visualized skin Musculoskeletal: No Chest Wall Tenderness Extremities: No Clubbing, No Cyanosis, No Edema, Normal Pulses Results 10/05/17 01:30 10/05/17 01:30 Lab Results 10/04/17 10/04/17 10/04/17 13:23 13:23 13:23 WBC 3.4 L Hgb 13.0 Hct 40.6 Plt Count 202 INR 1.0 APTT 37.8 H Sodium 140 Potassium 4.9 H Chloride 104 Carbon Dioxide 27 BUN 14 Creatinine 0.75 Glucose 159 H Calcium 9.1 Magnesium 1.9 Troponin I 10/04/17 10/04/17 10/04/17 13:23 19:37 19:37 WBC Hgb Hct Plt Count INR APTT 42.8 H Sodium Potassium Chloride Carbon Dioxide BUN Creatinine Glucose Calcium Magnesium Troponin I 0.67 H* 2.66 H* 10/05/17 10/05/17 10/05/17 01:30 01:30 01:30 WBC 8.2 D Hgb 11.5 D Hct 35.8 Plt Count 188 INR APTT 61.5 H Sodium 140 Potassium 4.1 Chloride 106 Carbon Dioxide 28 BUN 15 Creatinine 0.68 Glucose 94 Calcium 8.6 Magnesium 1.8 Troponin I 10/05/17 07:43 WBC Hgb Hct Plt Count INR APTT 47.7 H Sodium Potassium Chloride Carbon Dioxide BUN Creatinine Glucose Calcium Magnesium Troponin I Short CBC 10/05/17 10/04/17 Range/Units 01:30 13:23 WBC 8.2 D 3.4 L (4.3-11.1) K/mcL Hgb 11.5 D 13.0 (11.5-15.4) g/dL Hct 35.8 40.6 (35.3-44.9) % Plt Count 188 202 (140-400) K/mcL Neutrophils # 4.6 2.6 (1.6-8.9) K/mcL BMP 10/05/17 10/04/17 Range/Units 01:30 13:23 Sodium 140 140 (136-145) mEq/L Potassium 4.1 4.9 H (3.5-4.5) mEq/L Chloride 106 104 (98-109) mEq/L Carbon Dioxide 28 27 (19-29) mEq/L BUN 15 14 (7-20) mg/dL Creatinine 0.68 0.75 (0.57-1.11) mg/dL Glucose 94 159 H (70-99) mg/dL Calcium 8.6 9.1 (8.6-10.8) mg/dL Cardiac Enzymes 10/04/17 10/04/17 Range/Units 19:37 13:23 Troponin I 2.66 H* 0.67 H* (0-0.03) ng/mL Active Medications Albuterol Sulfate (Albuterol Inhaler) 2 puff IH Q4HR PRN PRN Reason: Shortness Of Breath/Wheezing Stop: 04/05/18 14:00 Last Admin: 10/05/17 08:19 Dose: 2 puff Albuterol/Ipratropium (Duoneb) 3 ml IH [id number] [facility] Stop: 04/05/18 16:01 Last Admin: 10/05/17 03:08 Dose: 3 ml Aspirin (Aspirin Ec) 81 mg PO DAILY [facility] Stop: 04/06/18 09:01 Atorvastatin Calcium (Lipitor) 40 mg PO HS [facility] Stop: 04/05/18 21:01 Last Admin: 10/04/17 20:53 Dose: 40 mg Budesonide/Formoterol Fumarate (Symbicort) 2 puff IH BID [facility] Stop: 04/05/18 21:01 Last Admin: 10/04/17 21:09 Dose: 2 puff Citalopram Hydrobromide (Celexa) 20 mg PO DAILY [facility] Stop: 04/05/18 14:51 Last Admin: 10/04/17 15:09 Dose: 20 mg Heparin Sodium (Porcine) (Heparin) 3,000 unit 60 unit/kg (3000 unit) IVP Q6HR PRN PRN Reason: SEE COMMENTS Stop: 04/05/18 12:44 Heparin Sodium (Porcine) (Heparin) 1,500 unit 30 unit/kg (1500 unit) IVP Q6H PRN PRN Reason: SEE COMMENTS Stop: 04/05/18 12:44 Last Admin: 10/04/17 20:52 Dose: 1,500 unit Heparin Sodium/Dextrose (Heparin 25,000 Unit/500 Ml D5w) 25,000 unit in 500 mls @ 12.192 mls/hr IVC .Q24H VETO; 12 UNIT/KG/HR PRN Reason: Protocol Stop: 04/05/18 12:46 Last Titration: 10/05/17 02:34 Dose: 13.87 unit/kg/hr, 14.1 mls/hr Lorazepam (Ativan) 1 mg PO BID PRN PRN Reason: Anxiety Stop: 04/05/18 14:00 Last Admin: 10/05/17 03:23 Dose: 1 mg Metoprolol Tartrate (Lopressor) 12.5 mg PO BID [facility] Stop: 04/05/18 21:01 Last Admin: 10/04/17 22:30 Dose: 12.5 mg Ticagrelor (Brilinta) 90 mg PO BID [facility] Stop: 04/05/18 21:01 Last Admin: 10/04/17 20:53 Dose: 90 mg - Imaging and Cardiology Echo: report reviewed Cardiac cath: report reviewed - EKG Interpretation EKG results cardiology: personally reviewed, other (12 hr tele AVG HR 68, SR, 2.6 second nocturnal pause.) Consult Discharge Plan - Plan Referrals: Jodie Garcia CNP [Primary Care Provider] - Johanna Monge CNP [Family Provider] -
[2017-10-05] MEDS: *HR* Ticagrelor 90 MG TABLET PO SCH ×2 (08:51→21:04)
[2017-10-05] MEDS: Aspirin Enteric Coated 81 MG Tablet PO SCH (08:51)
[2017-10-05] MEDS: *HR* Heparin 5,000 UNIT/ML VIAL IVP PRN (08:52)
[2017-10-05] MEDS ORDERED: Budesonide/Formoterol 80/4.5 MDI IH SCH (10:00)
--- NOTE | 2017-10-05 10:36 | Internal Med Progress Note ---
Date of Encounter: 10/05/17 Time of Encounter: 10:35 - Assessment and plan (1) COPD (chronic obstructive pulmonary disease) Current Visit: Yes Status: Acute Assessment and plan: Patient with known COPD presented with concerns for NSTEMI Continue duonebs, increase to q4H No CXR on file, obtain CXR stat Add prednisone po Continue O2 supplement prn Qualifiers: COPD type: unspecified COPD Qualified Code(s): J44.9 - Chronic obstructive pulmonary disease, unspecified (2) CAD (coronary artery disease) Current Visit: Yes Status: Chronic Assessment and plan: ND s/t PCI 2 weeks agol, now with NSTEMI, continue ASA, brilinta, BB No ACEI for now, BP is acceptable Cardiology is comanaging Qualifiers: Coronary Disease-Associated Artery/Lesion type: [place] artery [place] vs. transplanted heart: [place] heart Associated angina: without angina Qualified Code(s): I25.10 - Atherosclerotic heart disease of [place] coronary artery without angina pectoris (3) NSTEMI (non-ST elevated myocardial infarction) Current Visit: Yes Status: Acute Assessment and plan: As above, continue heparin For LHC today (4) Cardiomyopathy Current Visit: Yes Status: Chronic Assessment and plan: Repeat ECHO for EF assessment Qualifiers: Cardiomyopathy type: ischemic Qualified Code(s): I25.5 - Ischemic cardiomyopathy - Subjective Interval history: 61 F admitted for shortness of breath and chest pain, suspected NSTEMI, TWI and elevated troponin Her main complaint to me this a.m is shortness of breath She does have CMP with EF 40-45% and had widespread crackles on chest exam She was also wheezing No CXR on admission, will otbtain - Constitutional Vitals: Temp Pulse Resp BP Pulse Ox 97.6 F 59 18 104/60 98 10/05/17 07:35 10/05/17 07:35 10/05/17 07:35 10/05/17 07:35 10/05/17 07:35 General appearance: Present: A&O X 3, pleasant, no acute distress - Head Head exam: Present: atraumatic, normocephalic - Eye Eye exam: Present: PERRL, conjuntiva pink, sclera anicteric Pupils: Present: PERRL - Neck Neck exam general surgery: Present: supple, trachea midline. Absent: lymphadenopathy - Respiratory Respiratory exam: Present: rales, wheezes. Absent: accessory muscle use, rhonchi - Cardiovascular Cardiovascular exam: Present: RRR, +S1, +S2. Absent: diastolic murmur, gallop, rubs, systolic murmur - GI/Abdominal GI/Abdominal exam: Present: normal bowel sounds, soft, no peritoneal signs. Absent: distended, tenderness - Extremities Exam Extremities exam: Present: warm, radial pulses palpable and symmetrical. Absent : calf tenderness, cyanotic, pedal edema - Neurological Exam Neurological exam: Present: alert, CN II-XII intact, oriented X3, no focal deficits. Absent: pronater drift, facial droop, speech deficit - Skin Skin exam: Present: dry, intact Internal Medicine: Result - Labs CBC & Chem 7: 10/05/17 01:30 10/05/17 01:30 Labs: Short CBC 10/04/17 10/05/17 Range/Units 13:23 01:30 WBC 3.4 L 8.2 D (4.3-11.1) K/mcL Hgb 13.0 11.5 D (11.5-15.4) g/dL Hct 40.6 35.8 (35.3-44.9) % Plt Count 202 188 (140-400) K/mcL Neutrophils # 2.6 4.6 (1.6-8.9) K/mcL BMP 10/04/17 10/05/17 13:23 01:30 Sodium 140 140 Potassium 4.9 H 4.1 Chloride 104 106 Carbon Dioxide 27 28 BUN 14 15 Creatinine 0.75 0.68 Glucose 159 H 94 Calcium 9.1 8.6 Cardiac Enzymes 10/04/17 10/04/17 Range/Units 13:23 19:37 Troponin I 0.67 H* 2.66 H* (0-0.03) ng/mL - ABG Interpretation ABG results: PT/INR, D-dimer PT 11.2 Seconds (9.4-12.1) 10/04/17 13:23 Consult Discharge Plan - Plan Referrals: Johanna Monge CNP [Family Provider] - Jodie Garcia CNP [Primary Care Provider] -
[2017-10-05] MEDS ORDERED: 0.9 % Sodium Chloride 2,000 ML ONE (12:39)
[2017-10-05] MEDS ORDERED: Heparin 1,000 UNITS/500 mL NS 500 ML ONE (12:40)
[2017-10-05] MEDS ORDERED: *HR* Heparin 10,000 UNIT/10 ML VIAL ONE (12:40)
[2017-10-05] MEDS ORDERED: Nitroglycerin 1,000 MCG/10 ML VIAL IV ONE (12:51)
--- NOTE | 2017-10-05 13:01 | Pre-Sedation Evaluation ---
Pre-sedation evaluation - Pre-sedation checklist Date of procedure: 10/05/17 Procedure: Heart Cath Recent Vitals: Last Vital Signs Temp 97.7 F 10/05/17 10:43 Pulse 63 10/05/17 10:43 Resp 17 10/05/17 10:43 BP 120/70 10/05/17 10:43 Pulse Ox 96 10/05/17 10:43 H&P (including ROS) documented in medical record: Yes Previous reaction to sedatives/anesthetics: No Dietary Status: NPO 6 hours prior to procedure Dentition: No loose teeth or bridges ASA Classification *see protocol: CLASS II-Mild systemic disease Plan of Care: Pt appropriate candidate for procedure/moderate/conscious sedation
[2017-10-05] MEDS ORDERED: *HR* Midazolam HCl 2 MG/2 ML VIAL ONE (13:12)
[2017-10-05] MEDS ORDERED: *HR* FentaNYL (PF) 100 MCG/2 ML VIAL ONE (13:12)
[2017-10-05] MEDS ORDERED: 0.9 % Sodium Chloride 1,000 ML ONE ×2 (13:13→16:37)
--- NOTE | 2017-10-05 13:53 | Event Note ---
Date of Encounter: 10/05/17 Time of Encounter: 13:50 - Cardiology Event Note [facility] revealed that recent stents in RCA and LCx are patent. Ostial LCx mild stenosis, no intervention warranted. She did have disease in distal arteries, which could be culprit for troponin, but nothing amendable to PCI. Continue ASA , Brilinta, Statin, BB. Repeat echo ordered. Cardiology signing off. Reconsult PRN. Follow-up as outpt.
[2017-10-05] MEDS ORDERED: Acetaminophen 325 MG TABLET PO PRN (14:04)
[2017-10-05] MEDS ORDERED: *HR* HYDROcodone/Acet 5/325 mg TABLET PO PRN (14:04)
--- NOTE | 2017-10-05 14:18 | Invasive Diagnostic Lab Proc ---
Name: Jackie Shen Date of Study: 10/05/2017 Date: 1955 Ht: 65.0in Medical Record#: [id number] Age: 61 Wt: 125.88lb Gender: Female BSA: 1.62 Order #: [id number] BMI: 20.97 Physicians Procedure Physician: Kathy Villalpando MD Referring MD: Referring MD: Staff Name Position Time In ArmandYvette RN Monitor 01:16 PM Gabriella Patel RN Metal Reed Tuner 01:16 PM Dominique Ng RT (R) Scrub 01:16 PM Indications Indication Non-Stemi Procedures Performed Procedure L HRT ARTERY/VENTRICLE ANGIO Pre-Procedure Checklist Informed consent is complete signed and on chart. H&P is on chart. ID band is on and ID verified with patient. Patient NPO for procedure The procedure was described for the patient and questions were answered. Blood Pressure: 104/60 ECG is on chart. Plan of Care Patient will tolerate the procedure without complications. Adequate level of comfort will be maintained. Hemodynamics will remain stable Patient will recover from procedure without complications. Respiratory function will be maintained. Cardiac rhythm will remain stable. Patient temperature will be maintained. Patient and/or family have verbalized understanding of the procedure. Patient Education Chief Complaint/Reason for Test: Cardiac Cath Developmental Category: Adult (18-64 years) Developmentally Appropriate for Age: Yes Learning Barriers: None Education Needs: Procedure Education Method: Verbal Information Taught: Cardiac Cath Educational Evaluation: Able to repeat information Intravenous Access Time IV Size Location DC'd Fluid/Drip Rate Units RN 11:59 AM 20g 1 1/" Patent On Arrival Lt Antecubital Allergies ceftriaxone Amoxicillin levofloxacin sulfamethoxazole trimethoprim Vital Signs Time BP (mmHg) HR (bpm) O2 Sat. RR (bpm) LOC 12:01 PM 104 / 60 59 98 % 18 5 = Fully awake and uiulsqn8l or at pre-proc level 01:20 PM / % 5 = Fully awake and oriented or at pre-proc level 01:20 PM / % 4 = Oriented but drowsy 01:18 PM 138 / 66 58 100 % 13 01:22 PM 124 / 74 58 100 % 15 01:27 PM 114 / 64 58 97 % 12 01:33 PM 122 / 68 61 97 % 15 01:37 PM 118 / 72 58 96 % 12 01:42 PM 129 / 72 56 95 % 21 01:47 PM 133 / 74 57 99 % 19 01:35 PM / % 4 = Oriented but drowsy Procedural Medications Time Medication Dose Units Method Given By 01:17 PM Oxygen 2 L/min nasal cannula Gabriella Patel RN 01:21 PM Versed 1 mg Intravenous Gabriella Patel RN 01:21 PM Fentanyl 50 mcg Intravenous Gabriella Patel RN 01:21 PM Lidocaine 2% 10 ml Subcutaneous Kathy Villalpando MD ASA Classification: CLASS II- Mild systemic disease (i.e. well-controlled diabetes, hypertension, asthma, cigarette smoking) Zan Score Preprocedure Postprocedure Activity 2- Moves 4 extremities sustained head lift Activity 2- Moves 4 extremities sustained head lift Circulation 2- SBP +/= 20 points of pre-anesthetic level Circulation 2- SBP +/= 20 points of pre-anesthetic level Consciousness 2- Awake and alert oriented x 3 Consciousness 2- Awake and alert oriented x 3 O2 Saturation 2- Able to maintain O2 satruation of 92% on room air O2 Saturation 2- Able to maintain O2 satruation of 92% on room air Respiratory 2- Able to deep breathe and cough well Respiratory 2- Able to deep breathe and cough well Total Score 10 Total Score 10 Contrast Agent: Isovue Diagnostic Contrast: 72 ml Total Contrast: 72 ml Fluoro Dose: 106 mGy Activated Clotting Time Time Seconds to Clot 01:44 PM 160 Procedure Log Time Note Enter By 01:12 PM Pt arrived to quality assurance lab technician 2 at 13:12 [facility] 01:16 PM Yvette Acuna RN Position: Monitor Time in: 13:16 speedy 01:16 PM Gabriella Patel RN Position: Metal Reed Tuner Time in: 13:16 speedy 01:16 PM Dominique Ng RT (R) Position: Scrub Time in: 13:16 [facility] 01:16 PM Case Delayed No mmers 01:16 PM Hair removed from procedure site in procedure lab using clippers. Bilateral groin prepped with Chloraprep by Gabriella Patel RN, safety strap applied then patient was draped. Skin intact. mm 01:16 PM Jazmyne paged/called [facility] 01[facility] PM Physics[facility]anna responded and notified patient is ready 13:16 [facility] 01:16 PM Physician arrived 13:16 mmspeedy 01:16 PM Meet and greet completed mm:16 PM Sign in performed according to hospital policy. mm:17 PM Procedure start 13:17 mm:17 PM Case Start :17 PM CathStat :17 PM Vitals capture started with the following parameters, Patient=Adult, Interval=5 min, Initial Vrydyfvp=294 mmHg, Deflation Rate=5 mmHg, Cuff placed on Right Arm 01: PM Time: 13:17 Oxygen on at 2 L/min per nasal cannula by Gabriella Patel RN martha :18 PM HR=58 bpm, SAVU=319/66 mmhg, RjE8=604.0 %, Resp=13 B/min, Comment=SB :18 PM Recorded ECG: HR=56 Condition=Condition 1 01:19 PM ASA Class CLASS II- Mild systemic disease (i.e. well-controlled diabetes, hypertension, asthma, cigarette smoking) [place] : PM Pressure channel 1 zero failed. :20 PM Time: 13:20 Patient comfortable and pain free: Yes speedy : PM Time: 13:20LOC: 5 = Fully awake and oriented or at pre-proc level mmspeedy :20 PM Clinical Presentation: Non-STEMI mm: PM Time out performed according to hospital policy : PM Time: 13:21 Versed 1 mg Intravenous Given by Gabriella Patel RN martha : PM Time: 13:21 Fentanyl 50 mcg Intravenous Given by Gabriella Patel RN martha : PM Pressure channel 1 zeroed. :21 PM Time: 13:21 10 ml Lidocaine 2% to left groin Subcutaneous Given by Kathy Villalpando MD sylvesterspeedy : PM Micro-Introducer Kit utilized for sheath placement mm: PM HR=58 bpm, MNPH=779/74 mmhg, YvM5=687.0 %, Resp=15 B/min, Comment=SB :23 PM Access obtained by percutaneous puncture. 6Fr 10cm Terumo Pyatt sheath placed in left Femoral artery. [id number] mmspeedy :24 PM 0.035 145cm Navilyst 3mmJ wire [id number] 01:24 PM 5Fr FL 4 catheter inserted over the wire [facility] tsoumm 01:24 PM LCA angiography performed in multiple views. 01:25 PM Recorded Pressure: Ao, HR=59, Condition=Condition 1 (Aorta) Ao 117/60/83 01:26 PM Recorded Pressure: Ao, HR=58, Condition=Condition 1 (Aorta) Ao 105/63/81 01:27 PM HR=58 bpm, BNAX=850/64 mmhg, SpO2=97.0 %, Resp=12 B/min, Comment=SB 01:28 PM Catheter removed 01:28 PM 5Fr FR 4 catheter inserted over the wire [facility] 01:28 PM RCA angiography performed in multiple views. 01:30 PM Recorded Pressure: Ao, HR=66, Condition=Condition 1 (Aorta) Ao 105/70/87 01:31 PM Catheter removed 01:31 PM 5Fr Pigtail catheter inserted over the wire [facility] 01:31 PM Catheter selectively placed in left ventricle 01:32 PM Recorded Pressure: LV, HR=62, Condition=Condition 1 (Left Ventricle) LV 105/31/25 01:33 PM HR=61 bpm, WHLB=295/68 mmhg, SpO2=97.0 %, Resp=15 B/min 01:33 PM Recorded Pressure: LV, HR=73, Condition=Condition 1 (Left Ventricle) LV 121/48/50 01:33 PM Recorded Pressure: LV, HR=63, Condition=Condition 1 (Left Ventricle) LV 110/19/23 01:34 PM Bolus angiogram of left Ventricle complete: 10 ml/sec for a total of 30 mls ou 01:35 PM Catheter removed 01:35 PM Time: 13:20LOC: 4 = Oriented but drowsy tsou 01:35 PM Time: 13:20 Patient comfortable and pain free: Yes 01:37 PM HR=58 bpm, VNKK=781/72 mmhg, SpO2=96.0 %, Resp=12 B/min, Comment=SB 01:39 PM Wire removed oummspeedy 01:40 PM [facility] PM Sign out completed: Radiation Dose 106.01 mGy Fluoro Time: 2.3 Isovue 370 - 200ml contrast 72 ml given by Kathy Villalpnado MD. Complications: NoneCardiac Rehab Consult needed: NoConfirmed administered medications: Yes 01:41 PM Isovue 370 - 200ml,1 Bottle(s) used. oumm 01:41 PM Post ECG Sinus Bradycardia tsoumm 01:41 PM Post Blood Pressure 118/72 tsoumm 01:41 PM Information taught Cardiac Cath 01:42 PM Education needs Procedure, Plan of Care, and Responsibilities of Patient in Care oumm 01:42 PM Learning barriers :None mm:42 PM Education Methods Verbal mm:42 PM Education evaluation Able to repeat information 01:42 PM Site status No bleeding/hematoma - Lt Groin as reported by Dominique Ng RT (R) at 13:42 oumm 01:42 PM Plavix, Effient or Brilinta given No oummers 01:42 PM Delay to floor No oummers 01:42 PM HR=56 bpm, UKFN=797/72 mmhg, SpO2=95.0 %, Resp=21 B/min, Comment=SB 01:44 PM Family placed in consult room. oumm 01:44 PM Complications: None 01:44 PM At 13:44 the ACT was 160 seconds. tsoumm 01:44 PM Fluoro Time: 2.3 oumm 01:45 PM Isovue 370 - 200ml contrast 72 ml given by Kathy Villalpando MD. tsoumm 01:45 PM Radiation Dose 106.01 mGy oumm 01:45 PM Coronary Dominance: right tsoumm 01:45 PM Lesion found in Proximal LAD. Pre Stenosis: 25 Pre MAMI Flow: tsoummers 01:46 PM Lesion found in Proximal Circumflex. Pre Stenosis: 25 Pre MAMI Flow: tsoummers 01:46 PM Lesion found in Distal Circumflex. Pre Stenosis: 50 Pre MAMI Flow: tsoummers 01:46 PM Proximal Left Anterior Descending Coronary Artery with 25% stenosis. tsoummers 01:46 PM Circumflex, Obtuse Marginal, Left Posterior Descending, and Left Posterolateral Coronary Arteries with 50 % stenosis. patricio 01:47 PM Arterial sheath pulled using manual compression and for 15 minutes by Gabriella Patel RN 01:47 PM HR=57 bpm, DABN=506/74 mmhg, SpO2=99.0 %, Resp=19 B/min 01:51 PM Time: 13:35 Patient comfortable and pain free: Yes martha 01:51 PM Time: 13:35LOC: 4 = Oriented but drowsy patricio 01:58 PM Report given to Viridiana RUIZ Pt taken to 2A Room #37. 13:58 patricio 02:03 PM 14:03 Post Pulses Bilateral DP 2 patricio 02:12 PM Manual pressure held to left groin for 25 minutes due to hematoma at site per Dominique RAI. patricio 02:13 PM No bleeding or hematoma to left groin at this time per RT. patricio Cheek Complications Complication None Hemodynamics Pressures Site Systolic/A Wave Diastolic/V Wave Mean AO 117 60 83 AO 105 63 81 AO 105 70 87 LV 105 31 25 LV 121 48 50 LV 110 19 23 Post Procedure Information Blood Pressure: 118/72 mmHg Rhythm: Sinus Bradycardia Post procedural instructions were given Site Checks Time Location Status Staff Sheath In? Note 01:42 PM Lt Groin No bleeding/hematoma Dominique Ng RT (R) Pulses Time Site Pre-Procedure Post-Procedure Note 10/05/2017 12:00:00 PM Bilateral DP & PT 2+ 10/05/2017 12:01:00 PM Bilateral radial 2+ 2:03:00 PM Bilateral DP 2 Updated by Yvette Acuna RN on 10/05/2017 2:13:42 PM electronically signed on 10/05/2017 2:14:11 PM with status of Final
[2017-10-05 15:06] LABS: Basophils # 0.1 K/mcL (0.0-0.2); Basophils % 0.9 %; Eosinophils # 0.2 K/mcL (0.0-0.6); Eosinophils % 3.2 %; Hematocrit 36.1 % (35.3-44.9); Hemoglobin 11.3 g/dL (11.5-15.4); Immature Granulocytes % 0.2 % (0-4); Lymphocytes # 1.7 K/mcL (0.6-4.6); Lymphocytes % 29.2 %; Mean Corpuscular HGB Conc 31.3 g/dL (31.6-35.5); Mean Corpuscular Hemoglobin 29.7 pg (28.0-33.3); Mean Platelet Volume 10.7 fL (9.4-12.4); Monocytes # 0.3 K/mcL (0.0-1.3); Monocytes % 5.8 %; Neutrophils # 3.6 K/mcL (1.6-8.9); Platelet Count 179 K/mcL (140-400); Red Cell Distribution Width 13.2 % (11.5-14.5); Segmented Neutrophils % 60.7 %
[2017-10-05 15:19] LABS: BUN/Creatinine Ratio 20 (6-26); Blood Urea Nitrogen 13 mg/dL (7-20); Calcium 8.5 mg/dL (8.6-10.8); Carbon Dioxide 29 mEq/L (19-29); Chloride 103 mEq/L (98-109); Glucose 91 mg/dL (70-99); Osmolality,Calculated 286 (280-300); Potassium 4.1 mEq/L (3.5-4.5); Sodium 138 mEq/L (136-145); eGFR For African Americans > 60 (> 60); eGFR For Non-African Americans > 60 (> 60)
--- NOTE | 2017-10-05 16:40 | Electrocardiograph Report ---
[place] [address] Test Date: 2017-10-04 Pat Name: Jackie Shen Department: 112 Room: 2A37 Gender: F Emt Driver: : 1955 Requested By: Mason Alexander Order Number: [id number] Reading MD: Margaret Dolan Measurements Intervals [place] Rate: 64 P: 73 FL: 153 QRS: 67 QRSD: 77 T: 251 QT: 445 QTc: 455 Interpretive Statements SINUS RHYTHM ST DEVIATION AND MARKED T-WAVE ABNORMALITY, CONSIDER ANTEROLATERAL ISCHEMIA ST DEVIATION AND MODERATE T-WAVE ABNORMALITY, CONSIDER INFERIOR ISCHEMIA Electronically Signed On 10-05-2017 16:38:54 EST by Margaret Dolan
[2017-10-05] MEDS: predniSONE 20 MG TABLET PO SCH (18:47)
[2017-10-06] MEDS: Ipratropium/Albuterol Neb 3 ML IH SCH ×7 (00:17→23:26)
[2017-10-06] MEDS: *HR* Ticagrelor 90 MG TABLET PO SCH ×2 (11:08→22:03)
[2017-10-06] MEDS: Aspirin Enteric Coated 81 MG Tablet PO SCH (11:08)
[2017-10-06] MEDS: predniSONE 20 MG TABLET PO SCH (11:08)
[2017-10-06] MEDS: *HR* LORazepam 0.5 MG TABLET PO PRN ×2 (11:09→22:03)
[2017-10-06] MEDS: Heparin 25,000 UNIT/500 ML D5W 25,000 UNIT/500 ML MLS IVC SCH (12:24)
[2017-10-06] MEDS: methylPREDNISolone 125 MG/2 ML VIAL IVP SCH ×2 (15:54→23:56)
--- NOTE | 2017-10-06 18:00 | Internal Med Progress Note ---
Date of Encounter: 10/06/17 Time of Encounter: 17:57 - Assessment and plan (1) COPD (chronic obstructive pulmonary disease) Current Visit: Yes Status: Acute Qualifiers: COPD type: unspecified COPD Qualified Code(s): J44.9 - Chronic obstructive pulmonary disease, unspecified (2) CAD (coronary artery disease) Current Visit: Yes Status: Chronic Qualifiers: Coronary Disease-Associated Artery/Lesion type: [place] artery [place] vs. transplanted heart: [place] heart Associated angina: without angina Qualified Code(s): I25.10 - Atherosclerotic heart disease of [place] coronary artery without angina pectoris (3) NSTEMI (non-ST elevated myocardial infarction) Current Visit: Yes Status: Acute - Subjective Interval history: Presented with chest pain. Patient had recent PTCA. Troponin was noted elevated. Patient underwent LHC which showed patent stents. Cardiology thinks this could be small vessel disease. Echo showed EF 50% with systolic dysfunction but no significant valvular abnormality or wall motion abnormality. .Patient is already on aspirin and beta mely statins and Brillinta. If it did not necessarily nitrates can be added. On examination it appears that the she has COPD exacerbation. She quit his smoking 2 weeks ago. Her COPD exacerbation could be a reason for demand ischemia. Therefore will maximize medical treatment. Duo nebs IV steroid Mucinex added. Patient probably will stay for a couple more days. d - Constitutional Vitals: Temp Pulse Resp BP Pulse Ox 98.2 F 65 20 107/63 95 10/06/17 15:17 10/06/17 15:17 10/06/17 15:17 10/06/17 15:17 10/06/17 15:17 General appearance: Present: A&O X 3, pleasant, no acute distress - Head Head exam: Present: atraumatic, normocephalic - Eye Eye exam: Present: PERRL, conjuntiva pink, sclera anicteric Pupils: Present: PERRL - Neck Neck exam general surgery: Present: supple, trachea midline. Absent: lymphadenopathy - Respiratory Respiratory exam: Present: decreased breath sounds, wheezes. Absent: accessory muscle use, rales, rhonchi - Cardiovascular Cardiovascular exam: Present: RRR, +S1, +S2. Absent: diastolic murmur, gallop, rubs, systolic murmur - GI/Abdominal GI/Abdominal exam: Present: normal bowel sounds, soft, no peritoneal signs. Absent: distended, tenderness - Extremities Exam Extremities exam: Present: warm, radial pulses palpable and symmetrical. Absent : calf tenderness, cyanotic, pedal edema - Neurological Exam Neurological exam: Present: CN II-XII intact, oriented X3, no focal deficits. Absent: pronater drift, facial droop, speech deficit - Skin Skin exam: Present: dry, intact Internal Medicine: Result - Labs CBC & Chem 7: 10/05/17 14:31 10/05/17 14:31 Labs: Cardiac Enzymes 10/05/17 Range/Units 20:01 Troponin I 1.69 H* (0-0.03) ng/mL - ABG Interpretation ABG results: PT/INR, D-dimer PT 11.2 Seconds (9.4-12.1) 10/04/17 13:23 - Impressions Impressions Echocardiogram Limited Views 10/05/17 13:53 Impressions: LVEF 50-55%. Mildly dilated left ventricle. Mild segmental left ventricular systolic dysfunction. Overall, LVEF improved compared to prior TTE report. Left Ventricular Wall Motion: Rest Echo Findings The mid inferior, basal inferior, mid inferior lateral and basal inferior lateral lorenzo were hypokinetic. All other wall segments showed normal motion. Findings: Study Quality * Technically adequate exam. ECG Findings * Normal sinus rhythm. Left Ventricle * LVEF 50-55%. * Mildly dilated left ventricle. * Mild segmental left ventricular systolic dysfunction. Right Ventricle * Normal right ventricular structure and function. Left Atrium * Mildly dilated left atrium. Aorta * Normally sized aortic root. Pericardium * The pericardium appears normal. Consult Discharge Plan - Plan Referrals: Johanna Monge CNP [Family Provider] - Jodie Garcia CNP [Primary Care Provider] -
[2017-10-06] MEDS: *HR* Heparin 5,000 UNIT/ML VIAL SQ SCH (19:13)
[2017-10-07] MEDS: Ipratropium/Albuterol Neb 3 ML IH SCH ×3 (03:36→11:14)
[2017-10-07] MEDS: *HR* Heparin 5,000 UNIT/ML VIAL SQ SCH (06:00)
[2017-10-07] MEDS: methylPREDNISolone 125 MG/2 ML VIAL IVP SCH (08:02)
[2017-10-07] MEDS: *HR* Ticagrelor 90 MG TABLET PO SCH (08:02)
[2017-10-07] MEDS: Aspirin Enteric Coated 81 MG Tablet PO SCH (08:02)
[2017-10-07] MEDS: *HR* LORazepam 0.5 MG TABLET PO PRN (08:05)
[2017-10-07 10:56] VITALS: BP 103/61
--- NOTE | 2017-10-07 12:25 | Discharge Summary ---
Date of Encounter: 10/07/17 Time of Encounter: 12:21 - Discharge Diagnosis (1) COPD (chronic obstructive pulmonary disease) Priority: Secondary Status: Acute Qualifiers: COPD type: unspecified COPD Qualified Code(s): J44.9 - Chronic obstructive pulmonary disease, unspecified (2) CAD (coronary artery disease) Priority: Secondary Status: Chronic Qualifiers: Coronary Disease-Associated Artery/Lesion type: [place] artery [place] vs. transplanted heart: [place] heart Associated angina: without angina Qualified Code(s): I25.10 - Atherosclerotic heart disease of [place] coronary artery without angina pectoris (3) NSTEMI (non-ST elevated myocardial infarction) Priority: Primary Status: Acute - Discharge Medications Prescriptions: Ipratropium/Albuterol Neb [Duoneb] 3 ml IH Q6HR #120 inhsol GuaiFENesin ER [Mucinex] 1,200 mg PO BID #20 tbbp.12hr Metoprolol [Lopressor] 12.5 mg PO BID #30 tablet predniSONE [PredniSONE] 10 mg PO DAILY #41 tablet Home Medications: Aspirin [Lo-Dose Aspirin EC] 81 mg PO DAILY 09/18/17 [History] Citalopram [CeleXA] 20 mg PO DAILY 09/18/17 [History] Fluticasone/Salmeterol [Advair 250-50 Diskus] 1 puff IH BID 09/18/17 [History] Atorvastatin [Lipitor] 40 mg PO HS #30 tablet 09/20/17 [Rx] LORazepam [Ativan] 1 mg PO BID PRN #40 tablet 09/20/17 [Rx] Ticagrelor [Brilinta] 90 mg PO BID #60 tablet 09/20/17 [Rx] Albuterol Sulfate [Proair Hfa] 2 puff IH Q4HR PRN 10/04/17 [History] GuaiFENesin ER [Mucinex] 1,200 mg PO BID #20 tbbp.12hr 10/07/17 [Rx] Ipratropium/Albuterol Neb [Duoneb] 3 ml IH Q6HR #120 inhsol 10/07/17 [Rx] Metoprolol [Lopressor] 12.5 mg PO BID #30 tablet 10/07/17 [Rx] predniSONE [PredniSONE] 10 mg PO DAILY #41 tablet 10/07/17 [Rx] Allergies/Adverse Reactions: 3 Allergy/AdvReac Type Severity Reaction Status Date / Time Amoxicillin Allergy Hives Verified 10/04/17 15:57 ceftriaxone [From Rocephin] Allergy Hives Verified 09/18/17 16:57 levofloxacin [From Levaquin] Allergy Hives Verified 10/04/17 15:57 sulfamethoxazole AdvReac Itching Verified 10/04/17 16:52 [From Bactrim] trimethoprim [From Bactrim] AdvReac Itching Verified 10/04/17 16:52 Procedures/tests Complete & Pending: Procedures Performed prior 72 hours Category Date Time Status CL Cardiac Catheterization [CL] Routine [place] 10/05/17 09:11 Completed EKG [ECG 12 lead ECG] [ECG] Stat Y 10/04/17 12:19 Completed EV limited echocardiogram Routine Y 10/05/17 13:53 Completed Date of admission: 10/04/17 13:38 Primary care physician: Jodie Garcia Consults: 10/04/17 13:37 Consult to Cardiology [CONS] Routine Comment: Consulting Provider: Cardiology Elaine Reason for Consult: nstemi Call Completed: Yes 10/05/17 08:02 Consult to Cardiac Rehabilitation-Phase1 [CONS] Routine Comment: Reason for Consult: NSTEMI Call Completed: No Discharging clinician: José Miguel Blake Anticipated date of discharge: 10/07/17 - Patient Status Disposition: Home, Self-Care Functional capacity at discharge: independent ambulation Overall status at discharge: patient is progressing back to baseline - Discharge Instructions Follow Up With: Jodie Garcia, AURY [Primary Care Provider] - 10/13/17 2:00 pm (Please call to cancel or reschedule your appointment with 24hrs in advance if needed) - Diet and Activity Activity: resume usual activities as tolerated Diet: advance to your usual diet, low fat, low cholesterol, low salt diet Hospital course: Ms. Shen is a 61 year old female admitted with chest pain. Patient had recent PTCA. Troponin was noted elevated. Patient underwent LHC which showed patent stents. Cardiology thinks this could be small vessel disease. Echo showed EF 50% with systolic dysfunction but no significant valvular abnormality or wall motion abnormality. .Patient is already on aspirin and beta mely statins and Brillinta. If chest pain continue to bother her then nitrates can be added. On examination it appears that the she has COPD exacerbation. She quit his smoking 2 weeks ago. Her COPD exacerbation could be a reason for demand ischemia. Therefore will maximize medical treatment. Duo nebs by mouth steroid and Mucinex added. Patient sister unfortunately is not critical condition and she is requesting to be discharged. We offered her to stay for another day or so but to she feels that she needs to leave as her sister may not make it. She is advised to return to ER in case if she does not improve or feels worse. - Time Spent with Patient Total time spent providing and/or coordinating discharge services: Greater than 30 minutes - Constitutional Vitals: Temp Pulse Resp BP Pulse Ox 97.6 F 70 16 103/61 95 10/07/17 10:55 10/07/17 10:55 10/07/17 11:14 10/07/17 10:55 10/07/17 11:14 General appearance: Present: A&O X 3, pleasant, no acute distress - Head Head exam: Present: atraumatic, normocephalic - Eye Eye exam: Present: PERRL, conjuntiva pink, sclera anicteric Pupils: Present: PERRL - Neck Neck exam general surgery: Present: supple, trachea midline. Absent: lymphadenopathy - Respiratory Respiratory exam: Present: wheezes. Absent: accessory muscle use, rales, rhonchi Additional comments: Breast sounds have improved since yesterday and wheezing is not as scattered. No pleuritic chest pain - Cardiovascular Cardiovascular exam: Present: RRR, +S1, +S2. Absent: diastolic murmur, gallop, rubs, systolic murmur - GI/Abdominal GI/Abdominal exam: Present: normal bowel sounds, soft, no peritoneal signs. Absent: distended, tenderness - Extremities Exam Extremities exam: Present: warm, radial pulses palpable and symmetrical. Absent : calf tenderness, cyanotic, pedal edema - Neurological Exam Neurological exam: Present: CN II-XII intact, oriented X3, no focal deficits. Absent: pronater drift, facial droop, speech deficit - Skin Skin exam: Present: dry, intact
[2017-10-07 17:53] LABS: CK-BB (CK isoenzymes) 0 % (0-0); CK-MB (CK isoenzymes) 1 % (0-4); CK-MM (CK-isoenzymes) 99 % (96-100)
[2017-10-07 17:53] LABS: CK-BB (CK isoenzymes) 0 % (0-0); CK-MB (CK isoenzymes) 2 % (0-4); CK-MM (CK-isoenzymes) 98 % (96-100)
[2017-10-08 07:13] LABS: CK Total (Ck Isoenzymes) 135 U/L (20-180)
[2017-10-08 07:13] LABS: CK Total (Ck Isoenzymes) 200 U/L (20-180)
== END 2017-10-07 12:45 | disposition home or self-care (01) | DRG 192 ==
LOC: 2ANU
PROVIDERS: ADMIT Hospitalist; ATTEND Internal Medicine

== ENCOUNTER 2017-12-16 12:08 | Inpatient (IN) ==
[2017-12-16] MEDS ORDERED: Albuterol 2.5 MG/3 ML NEBULIZER IH ONE (14:45)
[2017-12-16] MEDS ORDERED: Acetaminophen 325 MG TABLET PO PRN ×2 (14:51→16:45)
[2017-12-16] MEDS ORDERED: Naloxone 0.4 MG/ML INJ IVP PRN ×2 (14:51→16:45)
[2017-12-16] MEDS ORDERED: Albuterol 2.5 MG/3 ML NEBULIZER IH PRN ×2 (14:59→16:45)
[2017-12-16] MEDS ORDERED: *HR* LORazepam 2 MG/ML VIAL IVP PRN (15:03)
--- NOTE | 2017-12-16 15:04 | Internal Med History&Physical ---
Date of Encounter: 12/16/17 Time of Encounter: 15:04 Assessment and Plan (1) COPD exacerbation Current visit: Yes Status: Acute Patient has been experiencing increased dyspnea despite the use of breathing treatments she was just recently discharged from [facility] due to COPD exacerbation. On initial presentation she was hypercapnic PCO2 88 and pH of 7.23, she was placed on BiPAP and pH did improve 7.32 as well as CO2 down to 73. We will continue with BiPAP titrated to maintain SPO2 greater than 90% Recheck ABG Continuous SPO2 monitoring Continue with bronchodilators Solu-Medrol IV 60 mg every 6 hours Doxycycline IV-bronchitis no evidence of pneumonia Ativan as needed for anxiety (2) Acute and chronic respiratory failure Current visit: Yes Status: Acute Presentation patient was hypercapnic with CO2 of 88 pH was 7.23 most likely related to COPD exacerbation continue with BiPAP Continuous SPO2 monitoring Qualifiers: Respiratory failure complication: hypercapnia Qualified Code(s): J96.22 - Acute and chronic respiratory failure with hypercapnia (3) CAD (coronary artery disease) Current visit: No Status: Chronic 1 patient did have NSTEMI in August 2017 with [facility] stent placement 3, she had another [facility] September 2017 which revealed that recent stents in RCA and LCx were patent, Ostial LCx mild stenosis, with small vessel disease. We will continue with aspirin and Plavix, statin, BB Nitro as needed Cardiac monitoring Qualifiers: Coronary Disease-Associated Artery/Lesion type: [place] artery [place] vs. transplanted heart: [place] heart Associated angina: without angina Qualified Code(s): I25.10 - Atherosclerotic heart disease of [place] coronary artery without angina pectoris (4) DVT prophylaxis Current visit: No Status: Acute Lovenox subcutaneous Internal Medicine - H&P: HPI Chief complaint: Dyspnea Admitted From: Emergency Dept Plans for Post Hospital Care: Home History of present illness: Ms. Shen is a 61 year old female past medical history of COPD [facility] CAD stent 3 most recent August 2017. According to patient she has been experiencing increasing shortness of breath throughout the night shortness of breath worsened approximately 5 AM. She has a history of COPD was just recently released from [place] 2 days ago for COPD exacerbation. She presented to [facility] for evaluation on initial presentation ABG revealed respiratory acidosis with pH of 7.2 she was placed on BiPAP given duo nebs as well as Solu-Medrol, some leukocytosis rest of lab work was unremarkable she was initiated on doxycycline and has been transferred to this facility for further evaluation per patient request. Presently patient appears to be in mild respiratory distress on BiPAP sitting up in bed, SPO2 is 95%. We will obtain stat ABG. I did review his case with Dr. Alexander who agrees with plan. Past Med Surg Social Fam HX - Past Medical History Medical history: COPD, coronary artery disease, myocardial infarction Psychiatric history: anxiety - Past Surgical History Surgical History: angioplasty/stent, other - Social History Smoking Status: Current every day smoker Smokeless Tobacco Status: No Alcohol use: none Drug use: none - Family History Father Living Status: Hx Family Cardiac Disorders: Yes (Hypertension) Mother Living Status: Cause of : Heart disease Internal Medicine - H&P: Meds Aspirin [Lo-Dose Aspirin EC] 81 mg PO DAILY 09/18/17 [History] Citalopram [CeleXA] 20 mg PO DAILY 09/18/17 [History] Albuterol Sulfate [Proair Hfa] 2 puff IH Q4HR PRN 10/04/17 [History] Metoprolol [Lopressor] 12.5 mg PO BID #30 tablet 10/07/17 [Rx] Clopidogrel [Plavix] 75 mg PO DAILY 12/16/17 [History] Doxycycline Hyclate 100 mg PO Q12H 12/16/17 [History] Ipratropium/Albuterol Neb [Duoneb] 3 ml IH Q4H PRN 12/16/17 [History] LORazepam [Ativan] 1 mg PO BID 12/16/17 [History] predniSONE [PredniSONE] 40 mg PO QAM 12/16/17 [History] 3 Allergy/AdvReac Type Severity Reaction Status Date / Time Amoxicillin Allergy Hives Verified 10/04/17 15:57 ceftriaxone [From Rocephin] Allergy Hives Verified 09/18/17 16:57 levofloxacin [From Levaquin] Allergy Hives Verified 10/04/17 15:57 sulfamethoxazole AdvReac Itching Verified 10/04/17 16:52 [From Bactrim] trimethoprim [From Bactrim] AdvReac Itching Verified 10/04/17 16:52 ROS unobtainable: other All Systems PM: A 10-system review of systems was performed and is negative for pertinent findings except as documented above in the HPI. - Constitutional Vitals: Temp Pulse Resp BP Pulse Ox 97.5 F L 110 18 131/81 95 12/16/17 14:09 12/16/17 14:09 12/16/17 14:20 12/16/17 14:09 12/16/17 14:20 General appearance: Present: mild distress, A&O X 3 - Head Head exam: Present: atraumatic, normocephalic - Eye Eye exam: Present: PERRL, conjuntiva pink, sclera anicteric Pupils: Present: PERRL - Neck Neck exam general surgery: Present: supple, trachea midline. Absent: lymphadenopathy - Respiratory Respiratory exam: Present: decreased breath sounds, respiratory distress. Absent: accessory muscle use, rales, rhonchi, wheezes - Cardiovascular Cardiovascular exam: Present: RRR, +S1, +S2. Absent: diastolic murmur, gallop, rubs, systolic murmur - GI/Abdominal GI/Abdominal exam: Present: normal bowel sounds, soft, no peritoneal signs. Absent: distended, tenderness - Extremities Exam Extremities exam: Present: warm, radial pulses palpable and symmetrical. Absent : calf tenderness, cyanotic, pedal edema - Neurological Exam Neurological exam: Present: CN II-XII intact, oriented X3, no focal deficits. Absent: pronater drift, facial droop, speech deficit - Skin Skin exam: Present: dry, intact Internal Med - H&P Results - ABG Interpretation Interpretation: respiratory acidosis Additional comments: 12/16/2017 10 AM PH 7.32 PCO2 73 PO2 120 bicarbonate 37 - EKG Data EKG shows normal: sinus rhythm Rate: tachycardia
[2017-12-16] MEDS ORDERED: Ipratropium/Albuterol Neb 3 ML IH SCH (15:15)
--- NOTE | 2017-12-16 15:15 | Event Note ---
Date of Encounter: 12/16/17 Time of Encounter: 15:14 Patient seen and examined with nurse practitioner. Acute COPD exacerbation with hypercapnic respiratory failure. Continue BiPAP, frequent nebulizer treatment, IV steroids and antibiotics for acute bronchitis. No evidence of pneumonia. Inpatient admission
[2017-12-16] MEDS ORDERED: *HR* LORazepam 1 MG TABLET PO PRN (15:16)
[2017-12-16 15:37] LABS: ABG Base Excess 5 mEq/L (-2 to 3); ABG HCO3 37 mEq/L (21-27); ABG Oxygen Saturation 98 % (95-98); ABG PCO2 87 mmHg (35-45); ABG PH 7.23 pH Units (7.32-7.45); ABG PO2 122 mmHg (85-104); ABG TCO2 39 mEq/L (20-26)
[2017-12-16] MEDS ORDERED: Ipratropium/Albuterol Neb 3 ML IH ONE (16:35)
[2017-12-16] MEDS ORDERED: Doxycycline 100 MG in 0.9 % Sodium Chloride Mini Bag 100 ML IVPB SCH (18:00)
[2017-12-16] MEDS ORDERED: methylPREDNISolone 125 MG/2 ML VIAL IVP SCH (18:00)
[2017-12-16] MEDS ORDERED: Aztreonam 2,000 MG in Water for inj. (sterile) 20 ML IVP SCH (18:00)
[2017-12-16] MEDS: methylPREDNISolone 125 MG/2 ML VIAL IVP SCH (18:11)
[2017-12-16] MEDS: Aztreonam 2,000 MG in Water for inj. (sterile) 20 ML IVP SCH (18:12)
[2017-12-16] MEDS: Doxycycline 100 MG in 0.9 % Sodium Chloride Mini Bag 100 ML IVPB SCH (18:12)
[2017-12-16] MEDS: Ipratropium/Albuterol Neb 3 ML IH SCH ×2 (18:40→21:48)
[2017-12-16] MEDS ORDERED: Magnesium Sulfate 1 GM in D5% in Water 100 ML IVPB ONE (19:37)
[2017-12-16] MEDS ORDERED: *HR* LORazepam 2 MG/ML VIAL IVP ONE (19:47)
[2017-12-16] MEDS ORDERED: methylPREDNISolone 125 MG/2 ML VIAL IVP ONE (19:59)
--- NOTE | 2017-12-16 20:26 | Event Note ---
Date of Encounter: 12/16/17 Time of Encounter: 18:00 Identified per nursing staff patient's ABG basically unchanged from previous pH was 7.2 a PCO2 was 88 PO2 was 102. Patient appears to be more lethargic she is sitting tripod in the bed with BiPAP on presently S PO2 is 98% she does have some scattered rhonchi. Change BiPAP settings 17/[address] Alexander and Dr. Arnold, also gave IV magnesium. We will continue to monitor
[2017-12-16] MEDS ORDERED: *HR* Ticagrelor 90 MG TABLET PO SCH ×2 (21:00)
[2017-12-17] MEDS: Ipratropium/Albuterol Neb 3 ML IH SCH ×8 (00:15→20:58)
[2017-12-17] MEDS: methylPREDNISolone 125 MG/2 ML VIAL IVP SCH ×5 (00:23→23:24)
[2017-12-17] MEDS: Aztreonam 2,000 MG in Water for inj. (sterile) 20 ML IVP SCH ×5 (00:23→23:25)
[2017-12-17 04:35] LABS: Basophils % 0.1 %; Hematocrit 40.5 % (35.3-44.9); Hemoglobin 12.7 g/dL (11.5-15.4); Immature Granulocytes % 0.4 % (0-4); Lymphocytes # 0.6 K/mcL (0.6-4.6); Lymphocytes % 3.5 %; Mean Corpuscular HGB Conc 31.4 g/dL (31.6-35.5); Mean Corpuscular Hemoglobin 29.9 pg (28.0-33.3); Mean Corpuscular Volume 95.3 fL (83.0-100.0); Monocytes % 5.9 %; Neutrophils # 14.9 K/mcL (1.6-8.9); Platelet Count 199 K/mcL (140-400); Red Blood Count 4.25 M/mcL (3.82-4.97); Red Cell Distribution Width 13.5 % (11.5-14.5); Segmented Neutrophils % 90.1 %
[2017-12-17 05:04] LABS: BUN/Creatinine Ratio 36 (6-26); Blood Urea Nitrogen 22 mg/dL (6-20); Carbon Dioxide 34 mEq/L (23-29); Chloride 98 mEq/L (98-107); Glucose 159 mg/dL (70-105); Osmolality,Calculated 283 (280-300); Potassium 4.6 mEq/L (3.5-5.1); Sodium 133 mEq/L (136-145); eGFR For African Americans > 60 (> 60); eGFR For Non-African Americans > 60 (> 60)
[2017-12-17 05:28] LABS: ABG Base Excess 7 mEq/L (-2 to 3); ABG HCO3 34 mEq/L (21-27); ABG Oxygen Saturation 98 % (95-98); ABG PCO2 62 mmHg (35-45); ABG PH 7.35 pH Units (7.32-7.45); ABG PO2 113 mmHg (85-104); ABG TCO2 36 mEq/L (20-26)
[2017-12-17] MEDS ORDERED: *HR* Enoxaparin 40 MG/0.4 ML SYRINGE SQ SCH (06:00)
[2017-12-17] MEDS: Doxycycline 100 MG in 0.9 % Sodium Chloride Mini Bag 100 ML IVPB SCH ×2 (06:01→17:23)
[2017-12-17] MEDS: *HR* Enoxaparin 40 MG/0.4 ML SYRINGE SQ SCH (06:02)
[2017-12-17] MEDS: Aspirin Enteric Coated 81 MG Tablet PO SCH (08:07)
[2017-12-17] MEDS ORDERED: Aspirin Enteric Coated 81 MG Tablet PO SCH (09:00)
[2017-12-17] MEDS: *HR* LORazepam 1 MG TABLET PO SCH ×2 (09:05→21:00)
[2017-12-17 10:02] LABS: ABG Base Excess 6 mEq/L (-2 to 3); ABG HCO3 38 mEq/L (21-27); ABG Oxygen Saturation 96 % (95-98); ABG PCO2 88 mmHg (35-45); ABG PH 7.24 pH Units (7.32-7.45); ABG PO2 102 mmHg (85-104); ABG TCO2 40 mEq/L (20-26); Blood Gas Modality BiLevel
--- NOTE | 2017-12-17 16:21 | Internal Med Progress Note ---
Date of Encounter: 12/17/17 Time of Encounter: 16:19 - Assessment and plan (1) COPD exacerbation Current Visit: Yes Status: Acute Assessment and plan: Continuous SPO2 monitoring Continue with bronchodilators Solu-Medrol IV 60 mg every 6 hours Doxycycline IV-bronchitis no evidence of pneumonia Ativan as needed for anxiety (2) Acute and chronic respiratory failure Current Visit: Yes Status: Acute Assessment and plan: acute mon chronci hypoxic and hypercapnic respiratory failrue, she was on 2 L NC at home. with hypercapnic CO2 88 POA, improved with BIPAP, will contineu BIPAP, wean O2 Qualifiers: Respiratory failure complication: hypoxia and hypercapnia Qualified Code(s) : J96.21 - Acute and chronic respiratory failure with hypoxia; J96.22 - Acute and chronic respiratory failure with hypercapnia; J96.22 - Acute and chronic respiratory failure with hypercapnia; J96.22 - Acute and chronic respiratory failure with hypercapnia (3) CAD (coronary artery disease) Current Visit: No Status: Chronic Assessment and plan: 1 patient did have NSTEMI in August 2017 with [facility] stent placement 3, she had another [facility] September 2017 which revealed that recent stents in RCA and LCx were patent, Ostial LCx mild stenosis, with small vessel disease. We will continue with aspirin and Plavix, statin, BB Nitro as needed Cardiac monitoring Qualifiers: Coronary Disease-Associated Artery/Lesion type: [place] artery [place] vs. transplanted heart: [place] heart Associated angina: without angina Qualified Code(s): I25.10 - Atherosclerotic heart disease of [place] coronary artery without angina pectoris - Time Spent With Patient 25 - 35 minutes - Subjective Interval history: Ms. Shen is a 61 year old female past medical history of COPD [facility] CAD stent 3 most recent August 2017. According to patient she has been experiencing increasing shortness of breath throughout the night shortness of breath worsened approximately 5 AM. She has a history of COPD was just recently released from [place] 2 days ago for COPD exacerbation. She presented to [facility] for evaluation on initial presentation ABG revealed respiratory acidosis with pH of 7.2 she was placed on BiPAP given duo nebs as well as Solu-Medrol, some leukocytosis rest of lab work was unremarkable she was initiated on doxycycline and has been transferred to this facility for further evaluation per patient request. Presently patient appears to be in mild respiratory distress on BiPAP sitting up in bed, SPO2 is 95%. Patient is doing better, she is off BiPAP. She is on 4 L nasal cannula sating 94% ABG improved CO2 from 8080 down to 62 pH 7.35. 113 - Constitutional Vitals: Temp Pulse Resp BP Pulse Ox 98.3 F 102 20 115/60 93 12/17/17 15:23 12/17/17 15:23 12/17/17 15:31 12/17/17 15:23 12/17/17 15:31 General appearance: Present: mild distress, A&O X 3 Exam: CONSTITUTIONAL: patient appears as an age appropriate female in no acute distress. EYES Clear sclerae, bilateral pupils are equal, reactive to light. EMOI. RESPIRATORY: No accessory muscle use, bilateral diminished breath sounds and wheezing to auscultation, no crackles/rales. CARDIOVASCULAR: Regular heart rate, normal S1 and S2, no murmurs GASTROINTESTINAL: bowel sounds present, soft, no tenderness. MUSCULOSKELETAL: Joints in normal range of motion, no clubbing, no edema, no cyanosis. Bilateral peripheral pulses 2+. NEUROLOGIC: CN II to XII are grossly intact, no focal neurological deficit. Internal Medicine: Result - Labs CBC & Chem 7: 12/17/17 04:18 12/17/17 04:18 Labs: Short CBC 12/17/17 Range/Units 04:18 WBC 16.5 H (4.3-11.1) K/mcL Hgb 12.7 (11.5-15.4) g/dL Hct 40.5 (35.3-44.9) % Plt Count 199 (140-400) K/mcL Neutrophils # 14.9 H (1.6-8.9) K/mcL BMP 12/17/17 04:18 Sodium 133 L Potassium 4.6 Chloride 98 Carbon Dioxide 34 H BUN 22 H Creatinine 0.61 Glucose 159 H Calcium 9.0 - ABG Interpretation ABG results: ABG ABG pH 7.35 pH Units (7.32-7.45) 12/17/17 05:25 ABG pCO2 62 mmHg (35-45) H 12/17/17 05:25 ABG pO2 113 mmHg (85-104) H 12/17/17 05:25 ABG O2 Saturation 98 % (95-98) 12/17/17 05:25 - Impressions Impressions Chest X-Ray 12/16/17 15:52 IMPRESSION: Stable COPD. No acute pneumonia. D/ / 12/16/2017 16:32:13 Adrien Garcia MD / tawana Interpreting Provider: Adrien Garcia MD Consult Discharge Plan - Plan Referrals: Jodie Garcia CNP [Primary Care Provider] -
[2017-12-18] MEDS: Ipratropium/Albuterol Neb 3 ML IH SCH ×6 (00:03→22:30)
[2017-12-18 06:02] LABS: BUN/Creatinine Ratio 38 (6-26); Blood Urea Nitrogen 21 mg/dL (6-20); Carbon Dioxide 37 mEq/L (23-29); Chloride 99 mEq/L (98-107); Glucose 136 mg/dL (70-105); Osmolality,Calculated 291 (280-300); Potassium 4.6 mEq/L (3.5-5.1); Sodium 138 mEq/L (136-145); eGFR For African Americans > 60 (> 60); eGFR For Non-African Americans > 60 (> 60)
[2017-12-18] MEDS: Aztreonam 2,000 MG in Water for inj. (sterile) 20 ML IVP SCH ×3 (06:18→17:57)
[2017-12-18] MEDS: *HR* Enoxaparin 40 MG/0.4 ML SYRINGE SQ SCH (06:19)
[2017-12-18] MEDS: Doxycycline 100 MG in 0.9 % Sodium Chloride Mini Bag 100 ML IVPB SCH ×2 (06:19→17:57)
[2017-12-18] MEDS: methylPREDNISolone 125 MG/2 ML VIAL IVP SCH ×3 (06:19→17:58)
[2017-12-18] MEDS: Aspirin Enteric Coated 81 MG Tablet PO SCH (08:02)
[2017-12-18] MEDS: *HR* LORazepam 1 MG TABLET PO SCH ×2 (08:02→20:45)
--- NOTE | 2017-12-18 09:08 | Internal Med Progress Note ---
Date of Encounter: 12/18/17 Time of Encounter: 09:06 - Assessment and plan (1) COPD exacerbation Current Visit: Yes Status: Acute Assessment and plan: Continuous SPO2 monitoring Continue with bronchodilators Solu-Medrol IV 60 mg every 6 hours Doxycycline IV and aztrenem for bronchitis no evidence of pneumonia Ativan as needed for anxiety (2) Acute and chronic respiratory failure Current Visit: Yes Status: Acute Assessment and plan: acute on chronci hypoxic and hypercapnic respiratory failrue, she was on 2 L NC at home. with hypercapnic CO2 88 POA, improved with BIPAP, current on 2 L NC, but she is very SOB with using accessory muscles. Qualifiers: Respiratory failure complication: hypoxia and hypercapnia Qualified Code(s) : J96.21 - Acute and chronic respiratory failure with hypoxia; J96.22 - Acute and chronic respiratory failure with hypercapnia; J96.22 - Acute and chronic respiratory failure with hypercapnia; J96.22 - Acute and chronic respiratory failure with hypercapnia (3) CAD (coronary artery disease) Current Visit: No Status: Chronic Assessment and plan: 1 patient did have NSTEMI in August 2017 with [facility] stent placement 3, she had another [facility] September 2017 which revealed that recent stents in RCA and LCx were patent, Ostial LCx mild stenosis, with small vessel disease. We will continue with aspirin and Plavix, statin, BB Nitro as needed Cardiac monitoring Qualifiers: Coronary Disease-Associated Artery/Lesion type: [place] artery [place] vs. transplanted heart: [place] heart Associated angina: without angina Qualified Code(s): I25.10 - Atherosclerotic heart disease of [place] coronary artery without angina pectoris (4) Anxiety Current Visit: Yes Status: Acute Assessment and plan: Continue home Ativan - Subjective Interval history: Ms. Shen is a 61 year old female past medical history of COPD [facility] stent 3 most recent August 2017. According to patient she has been experiencing increasing shortness of breath throughout the night shortness of breath worsened approximately 5 AM. She has a history of COPD was just recently released from [place] 2 days ago for COPD exacerbation. She presented to [facility] for evaluation on initial presentation ABG revealed respiratory acidosis with pH of 7.2 she was placed on BiPAP given duo nebs as well as Solu-Medrol, some leukocytosis rest of lab work was unremarkable she was initiated on doxycycline and has been transferred to this facility for further evaluation per patient request. Presently patient appears to be in mild respiratory distress on BiPAP sitting up in bed, SPO2 is 95%. ABG improved CO2 from 88 down to 62 pH 7.35. 113 ,on 12/17 patient Patient is doing ok, she is off BiPAP. She is on 2 L nasal cannula sating 92%. Patient is still has a lot of bilateral wheezing, chest is very tight she is breathing at a 25/m. Use accessory muscles. We will continue IV steroids and IV antibiotics. - Constitutional Vitals: Temp Pulse Resp BP Pulse Ox 97.8 F 73 18 129/77 93 12/18/17 07:18 12/18/17 07:18 12/18/17 07:18 12/18/17 07:18 12/18/17 07:18 General appearance: Present: mild distress, A&O X 3 Exam: CONSTITUTIONAL: patient appears as an age appropriate female in no acute distress. EYES Clear sclerae, bilateral pupils are equal, reactive to light. EMOI. RESPIRATORY: No accessory muscle use, bilateral diminished breath sounds and wheezing, no crackles/rales. CARDIOVASCULAR: Regular heart rate, normal S1 and S2, no murmurs GASTROINTESTINAL: bowel sounds present, soft, no tenderness. MUSCULOSKELETAL: Joints in normal range of motion, no clubbing, no edema, no cyanosis. Bilateral peripheral pulses 2+. NEUROLOGIC: CN II to XII are grossly intact, no focal neurological deficit. Internal Medicine: Result - Labs CBC & Chem 7: 12/17/17 04:18 12/18/17 04:48 Labs: BMP 12/18/17 04:48 Sodium 138 Potassium 4.6 Chloride 99 Carbon Dioxide 37 H BUN 21 H Creatinine 0.56 L Glucose 136 H Calcium 9.0 - ABG Interpretation ABG results: ABG ABG pH 7.35 pH Units (7.32-7.45) 12/17/17 05:25 ABG pCO2 62 mmHg (35-45) H 12/17/17 05:25 ABG pO2 113 mmHg (85-104) H 12/17/17 05:25 ABG O2 Saturation 98 % (95-98) 12/17/17 05:25 Consult Discharge Plan - Plan Referrals: Jodie Garcia, CRISIS MENTAL HEALTH THERAPIST [Primary Care Provider] -
[2017-12-18] MEDS: Budesonide Neb 0.5 MG/2 ML IH SCH ×2 (10:10→22:30)
[2017-12-19] MEDS: methylPREDNISolone 125 MG/2 ML VIAL IVP SCH ×2 (00:46→06:29)
[2017-12-19] MEDS: Aztreonam 2,000 MG in Water for inj. (sterile) 20 ML IVP SCH ×5 (00:46→23:56)
[2017-12-19 03:23] LABS: Basophils % 0.1 %; Hematocrit 38.2 % (35.3-44.9); Hemoglobin 12.4 g/dL (11.5-15.4); Immature Granulocytes % 0.6 % (0-4); Lymphocytes # 0.6 K/mcL (0.6-4.6); Mean Corpuscular HGB Conc 32.5 g/dL (31.6-35.5); Mean Corpuscular Hemoglobin 30.5 pg (28.0-33.3); Mean Corpuscular Volume 93.9 fL (83.0-100.0); Mean Platelet Volume 10.4 fL (9.4-12.4); Monocytes # 0.5 K/mcL (0.0-1.3); Monocytes % 4.8 %; Neutrophils # 8.7 K/mcL (1.6-8.9); Platelet Count 195 K/mcL (140-400); Red Blood Count 4.07 M/mcL (3.82-4.97); Red Cell Distribution Width 13.3 % (11.5-14.5); Segmented Neutrophils % 88.5 %
[2017-12-19 03:40] LABS: BUN/Creatinine Ratio 46 (6-26); Blood Urea Nitrogen 22 mg/dL (6-20); Calcium 9.1 mg/dL (8.6-10.3); Carbon Dioxide 36 mEq/L (23-29); Chloride 99 mEq/L (98-107); Glucose 129 mg/dL (70-105); Osmolality,Calculated 289 (280-300); Potassium 4.6 mEq/L (3.5-5.1); Sodium 137 mEq/L (136-145); eGFR For African Americans > 60 (> 60); eGFR For Non-African Americans > 60 (> 60)
[2017-12-19] MEDS: Ipratropium/Albuterol Neb 3 ML IH SCH ×4 (04:18→22:46)
[2017-12-19] MEDS: *HR* Enoxaparin 40 MG/0.4 ML SYRINGE SQ SCH (06:26)
[2017-12-19] MEDS: Doxycycline 100 MG in 0.9 % Sodium Chloride Mini Bag 100 ML IVPB SCH ×2 (06:28→17:16)
[2017-12-19] MEDS: *HR* LORazepam 1 MG TABLET PO SCH ×2 (08:45→20:30)
[2017-12-19] MEDS: Aspirin Enteric Coated 81 MG Tablet PO SCH (08:45)
[2017-12-19] MEDS: Budesonide Neb 0.5 MG/2 ML IH SCH ×2 (09:50→22:46)
--- NOTE | 2017-12-19 10:47 | Internal Med Progress Note ---
Date of Encounter: 12/19/17 Time of Encounter: 10:45 - Assessment and plan (1) COPD exacerbation Current Visit: Yes Status: Acute Assessment and plan: Acute COPD exacerbation due to acute bronchitis. Chest x-ray there is no evidence of pneumonia at this time she is on empiric antibiotic. White count has improved. Still has cough and wheezing. Since it is improving plan to start tapering steroid. She does not have a head of data would benefit from outpatient follow-up with head of data. Will need a nebulizer machine at discharge. (2) Acute and chronic respiratory failure Current Visit: Yes Status: Acute Assessment and plan: On admission she was noted to have acute on chronic hypoxic and hypercapnic respiratory failure. PCO2 is trending down. Normally she is on 2.5 L/m oxygen and now she has been at 3 L/m. Plan to continue current treatment and taper oxygen as tolerated. Will need follow-up ABG. (3) CAD (coronary artery disease) Current Visit: No Status: Chronic Assessment and plan: She is a known patient with coronary artery disease but does she does not have any anginal sounding chest pain at this time. Qualifiers: Coronary Disease-Associated Artery/Lesion type: [place] artery [place] vs. transplanted heart: [place] heart Associated angina: without angina Qualified Code(s): I25.10 - Atherosclerotic heart disease of [place] coronary artery without angina pectoris - Subjective Interval history: 61-year-old female known patient with COPD and chronic respiratory failure on 2.5 L/m oxygen at home presented with increasing cough shortness of breath and wheezing has been treated to acute exacerbation of COPD with bronchitis. On empiric antibiotic IV Solu-Medrol. She had acute on chronic hypercapnic and hypoxic respiratory failure. The last PCO2 is 62. Still improving. Denies any hemoptysis. No dizziness or syncopal episodes. Clinically she is feeling better but still has cough and wheezing. No fever. Her WBC is improving. This start tapering Solu-Medrol today. Monitor PCO2 tomorrow. If improving could consider discharge. She will need a nebulizer machine at discharge. - Constitutional Vitals: Temp Pulse Resp BP Pulse Ox 97.6 F 71 18 139/86 95 12/19/17 07:29 12/19/17 07:29 12/19/17 07:29 12/19/17 07:29 12/19/17 07:29 General appearance: Present: mild distress, A&O X 3 Exam: Middle-aged female. Chronically ill-looking. On oxygen. Has dyspnea and tachypnea at rest. No pallor or cyanosis or jaundice. Neck without any cervical or supraclavicular lymphadenopathy. CVS, S1-S2 regular. No murmur appreciated. Respiratory system, decreased air entry bilaterally, has bilateral rhonchi. Abdomen no distention. Soft. Nontender. No hepatomegaly. Extremities: No edema. No calf asymmetry. No calf tenderness. 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 Alert awake oriented. No facial asymmetry. Skin without any large ecchymoses or bruises. Internal Medicine: Result - Labs CBC & Chem 7: 12/19/17 03:07 12/19/17 03:07 Labs: Short CBC 12/19/17 Range/Units 03:07 WBC 9.8 (4.3-11.1) K/mcL Hgb 12.4 (11.5-15.4) g/dL Hct 38.2 (35.3-44.9) % Plt Count 195 (140-400) K/mcL Neutrophils # 8.7 (1.6-8.9) K/mcL BMP 12/19/17 03:07 Sodium 137 Potassium 4.6 Chloride 99 Carbon Dioxide 36 H BUN 22 H Creatinine 0.48 L Glucose 129 H Calcium 9.1 - ABG Interpretation ABG results: ABG ABG pH 7.35 pH Units (7.32-7.45) 12/17/17 05:25 ABG pCO2 62 mmHg (35-45) H 12/17/17 05:25 ABG pO2 113 mmHg (85-104) H 12/17/17 05:25 ABG O2 Saturation 98 % (95-98) 12/17/17 05:25 Consult Discharge Plan - Plan Referrals: Jodie Garcia CNP [Primary Care Provider] - 12/28/17 1:00 pm
[2017-12-19] MEDS: MethylPREDNISolone 40 MG/ML VIAL IVP SCH ×2 (17:15→23:57)
[2017-12-20] MEDS: Ipratropium/Albuterol Neb 3 ML IH SCH ×4 (04:31→21:37)
[2017-12-20 05:01] LABS: ABG Base Excess 11 mEq/L (-2 to 3); ABG HCO3 38 mEq/L (21-27); ABG Oxygen Saturation 96 % (95-98); ABG PCO2 65 mmHg (35-45); ABG PH 7.38 pH Units (7.32-7.45); ABG PO2 85 mmHg (85-104); ABG TCO2 40 mEq/L (20-26)
[2017-12-20] MEDS: Aztreonam 2,000 MG in Water for inj. (sterile) 20 ML IVP SCH ×3 (06:30→18:01)
[2017-12-20] MEDS: *HR* Enoxaparin 40 MG/0.4 ML SYRINGE SQ SCH (06:32)
[2017-12-20] MEDS: Doxycycline 100 MG in 0.9 % Sodium Chloride Mini Bag 100 ML IVPB SCH ×2 (09:00→18:01)
[2017-12-20] MEDS: Aspirin Enteric Coated 81 MG Tablet PO SCH (09:00)
[2017-12-20] MEDS: MethylPREDNISolone 40 MG/ML VIAL IVP SCH ×2 (09:00→18:01)
[2017-12-20] MEDS: *HR* LORazepam 1 MG TABLET PO SCH ×2 (09:00→20:22)
[2017-12-20] MEDS: Budesonide Neb 0.5 MG/2 ML IH SCH ×2 (10:01→21:37)
--- NOTE | 2017-12-20 17:18 | Internal Med Progress Note ---
Date of Encounter: 12/20/17 Time of Encounter: 17:14 - Assessment and plan (1) Acute and chronic respiratory failure Current Visit: Yes Status: Acute Assessment and plan: COPD exacerbation. On admission she was noted to have acute on chronic hypoxic and hypercapnic respiratory failure. PCO2 now 65, she likely retains CO2 as seen by her HCO3 levels. No prior PCO2 labs available to compare. Normally she is on 2.5 L/m oxygen and now she has been at 3 L/m. Plan to continue current treatment and taper oxygen as tolerated. Continue Solu Medrol, bipap prn, emperic antibiotic therapy with aztreonam, doxycycline Repeat ABG in AM Qualifiers: Respiratory failure complication: hypoxia and hypercapnia Qualified Code(s) : J96.21 - Acute and chronic respiratory failure with hypoxia; J96.22 - Acute and chronic respiratory failure with hypercapnia; J96.22 - Acute and chronic respiratory failure with hypercapnia; J96.22 - Acute and chronic respiratory failure with hypercapnia (2) CAD (coronary artery disease) Current Visit: No Status: Chronic Assessment and plan: She is a known patient with coronary artery disease but does she does not have any anginal sounding chest pain at this time. Qualifiers: Coronary Disease-Associated Artery/Lesion type: [place] artery [place] vs. transplanted heart: [place] heart Associated angina: without angina Qualified Code(s): I25.10 - Atherosclerotic heart disease of [place] coronary artery without angina pectoris (3) COPD (chronic obstructive pulmonary disease) Current Visit: No Status: Acute Assessment and plan: Acute COPD exacerbation due to acute bronchitis. Chest x-ray there is no evidence of pneumonia at this time she is on empiric antibiotic. White count has improved. Still has cough and wheezing. 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 Will need a nebulizer machine at discharge. Qualifiers: COPD type: unspecified COPD Qualified Code(s): J44.9 - Chronic obstructive pulmonary disease, unspecified - Subjective Interval history: No acute events. Patient not back at baseline. Nursing has reported that she has became short of breath simply by standing up. She usually is able to ambulate several steps without dyspnea. Denies chest pain, n/v. - Constitutional Vitals: Temp Pulse Resp BP Pulse Ox 98.2 F 87 20 135/72 94 12/20/17 14:55 12/20/17 14:55 12/20/17 14:55 12/20/17 14:55 12/20/17 14:55 General appearance: Present: mild distress, A&O X 3 Exam: CVS: RRR Lungs: Poor aeration of lungs, diminished breath sounds, faint wheezing appreciated, no rales Ext: no edema. Internal Medicine: Result - Labs CBC & Chem 7: 12/19/17 03:07 12/19/17 03:07 - ABG Interpretation ABG results: ABG ABG pH 7.38 pH Units (7.32-7.45) 12/20/17 04:57 ABG pCO2 65 mmHg (35-45) H 12/20/17 04:57 ABG pO2 85 mmHg (85-104) 12/20/17 04:57 ABG O2 Saturation 96 % (95-98) 12/20/17 04:57 Consult Discharge Plan - Plan Referrals: Jodie Garcia CNP [Primary Care Provider] - 12/28/17 1:00 pm
[2017-12-21] MEDS: Aztreonam 2,000 MG in Water for inj. (sterile) 20 ML IVP SCH ×4 (00:11→17:00)
[2017-12-21] MEDS: MethylPREDNISolone 40 MG/ML VIAL IVP SCH ×3 (00:11→17:00)
[2017-12-21] MEDS: Ipratropium/Albuterol Neb 3 ML IH SCH ×4 (04:36→21:51)
[2017-12-21 04:42] LABS: ABG Base Excess 13 mEq/L (-2 to 3); ABG HCO3 39 mEq/L (21-27); ABG Oxygen Saturation 99 % (95-98); ABG PCO2 56 mmHg (35-45); ABG PH 7.46 pH Units (7.32-7.45); ABG PO2 138 mmHg (85-104); ABG TCO2 41 mEq/L (20-26); Blood Gas PEEP 6 cm H2O
[2017-12-21] MEDS: *HR* Enoxaparin 40 MG/0.4 ML SYRINGE SQ SCH (06:05)
[2017-12-21] MEDS: Doxycycline 100 MG in 0.9 % Sodium Chloride Mini Bag 100 ML IVPB SCH ×2 (06:05→17:00)
[2017-12-21] MEDS: Aspirin Enteric Coated 81 MG Tablet PO SCH (07:54)
[2017-12-21] MEDS: *HR* LORazepam 1 MG TABLET PO SCH ×2 (07:54→20:46)
[2017-12-21] MEDS: Budesonide Neb 0.5 MG/2 ML IH SCH ×2 (10:52→21:50)
[2017-12-21] MEDS ORDERED: Doxycycline 100 MG VIAL ONE (16:56)
[2017-12-22] MEDS: MethylPREDNISolone 40 MG/ML VIAL IVP SCH ×3 (00:02→18:42)
[2017-12-22] MEDS: Aztreonam 2,000 MG in Water for inj. (sterile) 20 ML IVP SCH ×4 (00:02→18:28)
--- NOTE | 2017-12-22 01:49 | Internal Med Progress Note ---
Date of Encounter: 12/22/17 Time of Encounter: 14:46 - Assessment and plan (1) Acute and chronic respiratory failure Current Visit: Yes Status: Acute Assessment and plan: COPD exacerbation. On admission she was noted to have acute on chronic hypoxic and hypercapnic respiratory failure. PCO2 now 65, she likely retains CO2 as seen by her HCO3 levels. No prior PCO2 labs available to compare. Normally she is on 2.5 L/m oxygen and now she has been at 3 L/m. Plan to continue current treatment and taper oxygen as tolerated. r/p ABG this AM shows slight improvement. Continue Solu Medrol, bipap prn, emperic antibiotic therapy with aztreonam, doxycycline Qualifiers: Respiratory failure complication: hypoxia and hypercapnia Qualified Code(s) : J96.21 - Acute and chronic respiratory failure with hypoxia; J96.22 - Acute and chronic respiratory failure with hypercapnia; J96.22 - Acute and chronic respiratory failure with hypercapnia; J96.22 - Acute and chronic respiratory failure with hypercapnia (2) CAD (coronary artery disease) Current Visit: No Status: Chronic Assessment and plan: She is a known patient with coronary artery disease but does she does not have any anginal sounding chest pain at this time. Qualifiers: Coronary Disease-Associated Artery/Lesion type: [place] artery [place] vs. transplanted heart: [place] heart Associated angina: without angina Qualified Code(s): I25.10 - Atherosclerotic heart disease of [place] coronary artery without angina pectoris (3) COPD (chronic obstructive pulmonary disease) Current Visit: No Status: Acute Assessment and plan: Acute COPD exacerbation due to acute bronchitis. Chest x-ray there is no evidence of pneumonia at this time she is on empiric antibiotic. White count has improved. Still has cough and wheezing. She does not have a slag skimmer would benefit from outpatient follow-up with slag skimmer. Will need a nebulizer machine at discharge. Qualifiers: COPD type: unspecified COPD Qualified Code(s): J44.9 - Chronic obstructive pulmonary disease, unspecified - Subjective Interval history: Patient not back at baseline. Still dependant on bipap for several hours in the day. Denies chest pain, n/v. - Constitutional Vitals: Temp Pulse Resp BP Pulse Ox 98.2 F 83 18 165/85 93 12/21/17 23:44 12/22/17 00:00 12/21/17 23:44 12/21/17 23:44 12/21/17 23:44 General appearance: Present: mild distress, A&O X 3 Exam: CVS: RRR Lungs: absent breath sounds at bases, scattered wheezing, course breath sounds throughout Ext: no edema, no cyanosis. Internal Medicine: Result - Labs CBC & Chem 7: 12/19/17 03:07 12/19/17 03:07 - ABG Interpretation ABG results: ABG ABG pH 7.46 pH Units (7.32-7.45) H 12/21/17 04:37 ABG pCO2 56 mmHg (35-45) H 12/21/17 04:37 ABG pO2 138 mmHg (85-104) H 12/21/17 04:37 ABG O2 Saturation 99 % (95-98) H 12/21/17 04:37 Consult Discharge Plan - Plan Referrals: Jodie Garcia, AURY [Primary Care Provider] - 12/28/17 1:00 pm
[2017-12-22] MEDS: Ipratropium/Albuterol Neb 3 ML IH SCH ×4 (04:03→22:34)
[2017-12-22] MEDS: *HR* Enoxaparin 40 MG/0.4 ML SYRINGE SQ SCH (06:01)
[2017-12-22] MEDS: Doxycycline 100 MG in 0.9 % Sodium Chloride Mini Bag 100 ML IVPB SCH ×2 (06:01→18:42)
[2017-12-22] MEDS: Aspirin Enteric Coated 81 MG Tablet PO SCH (08:14)
[2017-12-22] MEDS: *HR* LORazepam 1 MG TABLET PO SCH ×2 (08:14→20:31)
--- NOTE | 2017-12-22 10:41 | Internal Med Progress Note ---
Date of Encounter: 12/22/17 Time of Encounter: 10:39 - Subjective Interval history: Interval history: A&O x3 but tachycardic and c/o productive cough. Physical Exam: See below Assessment and Plan: Acute and chronic respiratory failure secondary to COPD exacerbation: Normally she is on 2.5 L/m oxygen at home and now she has been at 3 L/m. Plan to continue current treatment and taper oxygen as tolerated. ABG yesterday AM shows slight improvement. Transition SoluMedrol to prednisone and continue empiric antibiotics (aztreonam, doxycycline) for now, but consider deescalating abx. She still has a bad cough and is wheezy at bases. Chest x-ray there is no evidence of pneumonia at this time she is on empiric antibiotic. Afebrle and her white count is improved. Still has cough and wheezing. She does not have a legal researcher would benefit from outpatient follow-up with legal researcher. She need a nebulizer machine at discharge. Hx of CAD (coronary artery disease) She does not have any anginal chest pain at this time. - Constitutional Vitals: Temp Pulse Resp BP Pulse Ox 97.8 F 60 16 125/85 96 12/22/17 07:45 12/22/17 08:45 12/22/17 07:45 12/22/17 07:45 12/22/17 07:45 General appearance: Present: mild distress, A&O X 3, pleasant - Head Head exam: Present: atraumatic, normocephalic - Eye Eye exam: Present: EOMI, normal appearance, PERRL, conjuntiva pink, sclera anicteric Pupils: Present: PERRL - Neck Neck exam general surgery: Present: normal inspection, supple, trachea midline. Absent: lymphadenopathy, nuchal rigidity, thyromegaly - Respiratory Respiratory exam: Present: CTAB, wheezes. Absent: accessory muscle use, rales, rhonchi Additional comments: Overall her lungs sound tight with fine end-exp wheeziing at lt. base. - Cardiovascular Cardiovascular exam: Present: RRR, +S1, +S2. Absent: diastolic murmur, gallop, rubs, systolic murmur - GI/Abdominal GI/Abdominal exam: Present: normal bowel sounds, soft, no peritoneal signs. Absent: distended, tenderness - Extremities Exam Extremities exam: Absent: calf tenderness, cyanotic, mottling, pedal edema - Neurological Exam Neurological exam: Present: CN II-XII intact, oriented X3, no focal deficits. Absent: pronater drift, facial droop, speech deficit - Psychiatric Psychiatric exam: Present: normal affect, normal mood - Skin Skin exam: Present: dry, intact Internal Medicine: Result - Labs CBC & Chem 7: 12/19/17 03:07 12/19/17 03:07 - ABG Interpretation ABG results: ABG ABG pH 7.46 pH Units (7.32-7.45) H 12/21/17 04:37 ABG pCO2 56 mmHg (35-45) H 12/21/17 04:37 ABG pO2 138 mmHg (85-104) H 12/21/17 04:37 ABG O2 Saturation 99 % (95-98) H 12/21/17 04:37 Consult Discharge Plan - Plan Referrals: Jodie Garcia, AURY [Primary Care Provider] - 12/28/17 1:00 pm
[2017-12-22] MEDS: Budesonide Neb 0.5 MG/2 ML IH SCH ×2 (10:56→22:34)
[2017-12-22] MEDS ORDERED: Water for inj. (sterile) 10 ML IV ONE (18:22)
[2017-12-23] MEDS: Aztreonam 2,000 MG in Water for inj. (sterile) 20 ML IVP SCH ×3 (00:58→08:25)
[2017-12-23] MEDS: MethylPREDNISolone 40 MG/ML VIAL IVP SCH ×2 (00:59→14:54)
[2017-12-23] MEDS: Ipratropium/Albuterol Neb 3 ML IH SCH ×3 (04:03→15:50)
[2017-12-23] MEDS: Doxycycline 100 MG in 0.9 % Sodium Chloride Mini Bag 100 ML IVPB SCH (06:41)
[2017-12-23] MEDS: *HR* Enoxaparin 40 MG/0.4 ML SYRINGE SQ SCH (06:42)
[2017-12-23] MEDS: *HR* LORazepam 1 MG TABLET PO SCH (09:44)
[2017-12-23] MEDS: Aspirin Enteric Coated 81 MG Tablet PO SCH (09:44)
[2017-12-23] MEDS: Budesonide Neb 0.5 MG/2 ML IH SCH (11:01)
[2017-12-23 14:56] VITALS: BP 148/77
--- NOTE | 2017-12-23 16:14 | Internal Med Progress Note ---
Date of Encounter: 12/23/17 Time of Encounter: 16:13 - Subjective Interval history: Interval history: A&O x3 but tachycardic and c/o productive cough. Physical Exam: See below Assessment and Plan: Acute and chronic respiratory failure secondary to COPD exacerbation: Normally she is on 2.5 L/m oxygen at home and now she has been at 3 L/m. Plan to continue current treatment and taper oxygen as tolerated. ABG yesterday AM shows slight improvement. Transition SoluMedrol to prednisone and continue empiric antibiotics (aztreonam, doxycycline) for now, but consider deescalating abx. She still has a bad cough and is wheezy at bases. Chest x-ray there is no evidence of pneumonia at this time she is on empiric antibiotic. Afebrle and her white count is improved. Still has cough and wheezing. She does not have a fingernail sculpturer would benefit from outpatient follow-up with fingernail sculpturer. She need a nebulizer machine at discharge. Hx of CAD (coronary artery disease) She does not have any anginal chest pain at this time. - Constitutional Vitals: Temp Pulse Resp BP Pulse Ox 97.7 F 89 14 148/77 94 12/23/17 14:54 12/23/17 14:54 12/23/17 14:54 12/23/17 14:54 12/23/17 14:54 General appearance: Present: mild distress, A&O X 3, pleasant Internal Medicine: Result - Labs CBC & Chem 7: 12/19/17 03:07 12/19/17 03:07 - ABG Interpretation ABG results: ABG ABG pH 7.46 pH Units (7.32-7.45) H 12/21/17 04:37 ABG pCO2 56 mmHg (35-45) H 12/21/17 04:37 ABG pO2 138 mmHg (85-104) H 12/21/17 04:37 ABG O2 Saturation 99 % (95-98) H 12/21/17 04:37 Consult Discharge Plan - Plan Referrals: Jodie Garcia, WAX POURER [Primary Care Provider] - 12/28/17 1:00 pm
--- NOTE | 2017-12-23 16:34 | Discharge Summary ---
Date of Encounter: 12/24/17 Time of Encounter: 16:27 - Discharge Medications Home Medications: Aspirin [Lo-Dose Aspirin EC] 81 mg PO DAILY 09/18/17 [History] Citalopram [CeleXA] 20 mg PO DAILY 09/18/17 [History] Albuterol Sulfate [Proair Hfa] 2 puff IH Q4HR PRN 10/04/17 [History] Metoprolol [Lopressor] 12.5 mg PO BID #30 tablet 10/07/17 [Rx] Clopidogrel [Plavix] 75 mg PO DAILY 12/16/17 [History] Doxycycline Hyclate 100 mg PO Q12H 12/16/17 [History] Ipratropium/Albuterol Neb [Duoneb] 3 ml IH Q4H PRN 12/16/17 [History] LORazepam [Ativan] 1 mg PO BID 12/16/17 [History] predniSONE [PredniSONE] 40 mg PO QAM 12/16/17 [History] Allergies/Adverse Reactions: 3 Allergy/AdvReac Type Severity Reaction Status Date / Time Amoxicillin Allergy Hives Verified 10/04/17 15:57 ceftriaxone [From Rocephin] Allergy Hives Verified 09/18/17 16:57 levofloxacin [From Levaquin] Allergy Hives Verified 10/04/17 15:57 sulfamethoxazole AdvReac Itching Verified 10/04/17 16:52 [From Bactrim] trimethoprim [From Bactrim] AdvReac Itching Verified 10/04/17 16:52 Date of admission: 12/16/17 13:54 Primary care physician: Jodie Garcia Consults: 12/18/17 09:11 Consult to Physical Therapy [CONS] Routine Comment: Evaluate, develop and implement POC Reason for Consult: weakness Discharging clinician: Derrick Herron - Patient Status Disposition: Home, Self-Care - Discharge Instructions Instructions: Acute Respiratory Distress Syndrome (DC), Anxiety (DC), COPD Exacerbation, Mice Raiser (GEN) Follow Up With: Claire Pham MD [Partnered Physician] - (sent a web request on 12-23 should call patient at home with appoinment date and time) Jodie Garcia, AURY [Primary Care Provider] - 12/28/17 1:00 pm Hospital course: Ms. Shen is a 62 year old female - Time Spent with Patient Total time spent providing and/or coordinating discharge services: - Constitutional Vitals: Temp Pulse Resp BP Pulse Ox 97.7 F 89 14 148/77 94 12/23/17 14:54 12/23/17 14:54 12/23/17 14:54 12/23/17 14:54 12/23/17 14:54 General appearance: Present: mild distress, A&O X 3, pleasant
[2017-12-24] MEDS: Ipratropium/Albuterol Neb 3 ML IH SCH ×2 (07:31→07:32)
[2017-12-24] MEDS: Budesonide Neb 0.5 MG/2 ML IH SCH (07:31)
== END 2017-12-23 18:00 | disposition home or self-care (01) | DRG 140 ==
LOC: 2ANU 13:54 → SUATTDRO 13:54 → 2NNU 16:28 → 2NENU 12-22 15:42
PROVIDERS: ADMIT Hospitalist; ATTEND Hospitalist

== ENCOUNTER 2019-09-03 15:06 | Inpatient (IN) ==
[2019-09-03 17:00] LABS: ABG Base Excess 1 mEq/L (-2 to 3); ABG HCO3 30 mEq/L (21-27); ABG Oxygen Saturation 99 % (95-98); ABG PCO2 69 mmHg (35-45); ABG PH 7.25 pH Units (7.32-7.45); ABG PO2 157 mmHg (85-104); ABG TCO2 32 mEq/L (20-26); Blood Gas VT 400 cc
[2019-09-03] MEDS ORDERED: Artificial Tears SOLN 15 ML BOTTLE BOTH EYES PRN (17:23)
[2019-09-03] MEDS ORDERED: FentaNYL (PF) 1,000 MCG in 0.9 % Sodium Chloride 80 ML IVC SCH (17:30)
[2019-09-03 17:44] LABS: Basophils % 0.1 %; Eosinophils % 0.4 %; Hematocrit 43.6 % (35.3-44.9); Hemoglobin 13.7 g/dL (11.5-15.4); Immature Granulocytes % 0.5 % (0-4); Lymphocytes # 0.5 K/mcL (0.6-4.6); Lymphocytes % 6.1 %; Mean Corpuscular HGB Conc 31.4 g/dL (31.6-35.5); Mean Corpuscular Hemoglobin 31.6 pg (28.0-33.3); Mean Corpuscular Volume 100.7 fL (83.0-100.0); Mean Platelet Volume 10.2 fL (9.4-12.4); Monocytes # 0.2 K/mcL (0.0-1.3); Monocytes % 2.4 %; Neutrophils # 6.7 K/mcL (1.6-8.9); Platelet Count 174 K/mcL (140-400); Red Blood Count 4.33 M/mcL (3.82-4.97); Red Cell Distribution Width 13.9 % (11.5-14.5); Segmented Neutrophils % 90.5 %; White Blood Count 7.4 K/mcL (4.3-11.1)
[2019-09-03 17:51] LABS: Prothrombin Time 11.3 Seconds (9.4-12.1)
[2019-09-03] MEDS ORDERED: Albuterol 2.5 MG/3 ML NEBULIZER IH PRN (17:51)
[2019-09-03] MEDS ORDERED: Naloxone 0.4 MG/ML INJ IVP PRN (17:51)
[2019-09-03] MEDS ORDERED: Acetaminophen 325 MG TABLET PO PRN (17:51)
[2019-09-03] MEDS ORDERED: *HR* Heparin 5,000 UNIT/ML VIAL SQ SCH (18:00)
[2019-09-03 18:03] LABS: Alanine Aminotransferase 34 Units/L (7-52); Albumin 3.6 g/dL (3.5-5.7); Albumin/Globulin Ratio 1.9 (1.1-2.2); Alkaline Phosphatase 83 Units/L (34-104); Aspartate Amino Transferase 35 Units/L (13-39); BUN/Creatinine Ratio 31 (6-26); Bilirubin,Total 0.4 mg/dL (0.3-1.0); Blood Urea Nitrogen 18 mg/dL (8-23); Calcium 8.2 mg/dL (8.6-10.3); Carbon Dioxide 26 mEq/L (23-29); Chloride 110 mEq/L (98-107); Globulin 1.9 g/dL (2.4-3.5); Glucose 131 mg/dL (70-105); Magnesium 1.8 mg/dL (1.6-2.6); Osmolality,Calculated 292 (280-300); Phosphorous 3.2 mg/dL (2.7-4.5); Potassium 4.8 mEq/L (3.5-5.1); Sodium 139 mEq/L (136-145); Total Protein 5.5 g/dL (6.4-8.9); eGFR For African Americans > 60 (> 60); eGFR For Non-African Americans > 60 (> 60)
[2019-09-03] MEDS: Artificial Tears SOLN 15 ML BOTTLE BOTH EYES SCH ×2 (18:52→20:22)
[2019-09-03] MEDS: Ipratropium/Albuterol Neb 3 ML IH SCH ×2 (20:00→23:38)
[2019-09-03] MEDS: Chlorhexidine Rinse 15 ML MOUTHWASH MM SCH (20:22)
[2019-09-03] MEDS: Doxycycline 100 MG in 0.9 % Sodium Chloride Mini Bag 100 ML IVPB SCH (20:22)
[2019-09-03] MEDS: MethylPREDNISolone 40 MG/ML VIAL IVP SCH (20:22)
[2019-09-03] MEDS ORDERED: *HR* Heparin 5,000 UNIT/ML VIAL IVP PRN ×2 (23:13)
[2019-09-04] MEDS: Heparin 25,000 UNIT/250 ML D5W 25,000 UNIT/250 ML IV.SOLN IVC SCH (00:14)
[2019-09-04] MEDS: Artificial Tears SOLN 15 ML BOTTLE BOTH EYES SCH ×4 (00:14→19:32)
[2019-09-04 00:23] LABS: Hematocrit 41.3 % (35.3-44.9); Hemoglobin 12.9 g/dL (11.5-15.4); Mean Corpuscular HGB Conc 31.2 g/dL (31.6-35.5); Mean Corpuscular Volume 99.3 fL (83.0-100.0); Platelet Count 200 K/mcL (140-400); Red Blood Count 4.16 M/mcL (3.82-4.97)
[2019-09-04] MEDS: Ipratropium/Albuterol Neb 3 ML IH SCH ×6 (03:58→23:39)
[2019-09-04 04:58] LABS: ABG Base Excess 2 mEq/L (-2 to 3); ABG HCO3 31 mEq/L (21-27); ABG Oxygen Saturation 88 % (95-98); ABG PCO2 66 mmHg (35-45); ABG PH 7.28 pH Units (7.32-7.45); ABG PO2 63 mmHg (85-104); ABG TCO2 33 mEq/L (20-26); Blood Gas Modality ASSIST CONTROL; Blood Gas VT 400 cc
[2019-09-04] MEDS: MethylPREDNISolone 40 MG/ML VIAL IVP SCH ×2 (05:49→17:55)
[2019-09-04] MEDS: Doxycycline 100 MG in 0.9 % Sodium Chloride Mini Bag 100 ML IVPB SCH ×2 (05:49→17:55)
[2019-09-04 06:19] LABS: Hematocrit 41.7 % (35.3-44.9); Hemoglobin 12.8 g/dL (11.5-15.4); Immature Granulocytes % 0.3 % (0-4); Lymphocytes # 1.1 K/mcL (0.6-4.6); Lymphocytes % 13.5 %; Mean Corpuscular HGB Conc 30.7 g/dL (31.6-35.5); Mean Corpuscular Hemoglobin 31.1 pg (28.0-33.3); Mean Corpuscular Volume 101.5 fL (83.0-100.0); Mean Platelet Volume 10.8 fL (9.4-12.4); Monocytes # 0.9 K/mcL (0.0-1.3); Monocytes % 11.3 %; Neutrophils # 5.8 K/mcL (1.6-8.9); Platelet Count 200 K/mcL (140-400); Red Blood Count 4.11 M/mcL (3.82-4.97); Red Cell Distribution Width 14.2 % (11.5-14.5); Segmented Neutrophils % 74.9 %; White Blood Count 7.8 K/mcL (4.3-11.1)
[2019-09-04 06:41] LABS: Alanine Aminotransferase 29 Units/L (7-52); Albumin 3.5 g/dL (3.5-5.7); Albumin/Globulin Ratio 1.7 (1.1-2.2); Alkaline Phosphatase 75 Units/L (34-104); Aspartate Amino Transferase 27 Units/L (13-39); BUN/Creatinine Ratio 26 (6-26); Bilirubin,Indirect 0.3 mg/dL (0.0-1.2); Bilirubin,Total 0.3 mg/dL (0.3-1.0); Blood Urea Nitrogen 17 mg/dL (8-23); Calcium 8.7 mg/dL (8.6-10.3); Carbon Dioxide 29 mEq/L (23-29); Chloride 104 mEq/L (98-107); Globulin 2.1 g/dL (2.4-3.5); Glucose 119 mg/dL (70-105); Magnesium 1.7 mg/dL (1.6-2.6); Osmolality,Calculated 293 (280-300); Phosphorous 4.2 mg/dL (2.7-4.5); Potassium 4.6 mEq/L (3.5-5.1); Sodium 140 mEq/L (136-145); Total Protein 5.6 g/dL (6.4-8.9); eGFR For African Americans > 60 (> 60); eGFR For Non-African Americans > 60 (> 60)
[2019-09-04] MEDS ORDERED: Perflutren Lipid Microsphere 1.3 ML in 0.9 % Sodium Chloride 8.7 ML IVP ONE (07:13)
[2019-09-04] MEDS ORDERED: ALPRAZolam 0.5 MG TABLET PO PRN (08:23)
[2019-09-04] MEDS ORDERED: *HR* LORazepam 1 MG TABLET PO ONE (08:27)
[2019-09-04] MEDS ORDERED: *HR* LORazepam 2 MG/ML VIAL IVP ONE (08:28)
[2019-09-04] MEDS ORDERED: *HR* LORazepam 2 MG/ML VIAL ONE (08:30)
[2019-09-04] MEDS: Chlorhexidine Rinse 15 ML MOUTHWASH MM SCH ×2 (08:48→19:32)
[2019-09-04] MEDS: Pantoprazole 40 MG VIAL IVP SCH (10:49)
[2019-09-04] MEDS: *HR* LORazepam 1 MG TABLET PO PRN ×2 (15:17→23:35)
[2019-09-04] MEDS ORDERED: *HR* OxyCODONE/APAP 5/325 TABLET PO PRN (18:23)
[2019-09-05] MEDS: Ipratropium/Albuterol Neb 3 ML IH SCH ×6 (03:45→23:38)
[2019-09-05] MEDS: Doxycycline 100 MG in 0.9 % Sodium Chloride Mini Bag 100 ML IVPB SCH (05:31)
[2019-09-05] MEDS: MethylPREDNISolone 40 MG/ML VIAL IVP SCH ×2 (05:31→16:55)
[2019-09-05] MEDS: Heparin 25,000 UNIT/250 ML D5W 25,000 UNIT/250 ML IV.SOLN IVC SCH ×3 (07:42→12:05)
[2019-09-05 08:01] LABS: Basophils % 0.3 %; Eosinophils % 0.3 %; Hematocrit 37.7 % (35.3-44.9); Hemoglobin 11.9 g/dL (11.5-15.4); Immature Granulocytes % 0.6 % (0-4); Lymphocytes # 0.8 K/mcL (0.6-4.6); Lymphocytes % 11.7 %; Mean Corpuscular HGB Conc 31.6 g/dL (31.6-35.5); Mean Corpuscular Hemoglobin 30.9 pg (28.0-33.3); Mean Corpuscular Volume 97.9 fL (83.0-100.0); Mean Platelet Volume 10.3 fL (9.4-12.4); Monocytes # 0.5 K/mcL (0.0-1.3); Monocytes % 6.5 %; Neutrophils # 5.7 K/mcL (1.6-8.9); Platelet Count 154 K/mcL (140-400); Red Blood Count 3.85 M/mcL (3.82-4.97); Segmented Neutrophils % 80.6 %; White Blood Count 7.1 K/mcL (4.3-11.1)
[2019-09-05] MEDS: Pantoprazole 40 MG VIAL IVP SCH (08:01)
[2019-09-05] MEDS: *HR* LORazepam 1 MG TABLET PO PRN ×2 (08:01→16:55)
[2019-09-05 08:20] LABS: BUN/Creatinine Ratio 29 (6-26); Blood Urea Nitrogen 15 mg/dL (8-23); Calcium 8.5 mg/dL (8.6-10.3); Carbon Dioxide 33 mEq/L (23-29); Chloride 106 mEq/L (98-107); Glucose 121 mg/dL (70-105); Osmolality,Calculated 288 (280-300); Potassium 3.9 mEq/L (3.5-5.1); Sodium 138 mEq/L (136-145); eGFR For African Americans > 60 (> 60); eGFR For Non-African Americans > 60 (> 60)
[2019-09-05] MEDS ORDERED: Albuterol 2.5 MG/3 ML NEBULIZER IH PRN (12:50)
[2019-09-05] MEDS ORDERED: Acetaminophen 325 MG TABLET PO PRN (12:50)
[2019-09-05] MEDS ORDERED: *HR* Heparin 5,000 UNIT/ML VIAL IVP PRN ×2 (12:50)
[2019-09-05] MEDS ORDERED: Naloxone 0.4 MG/ML INJ IVP PRN (12:50)
[2019-09-05] MEDS: Doxycycline 100 MG CAPSULE PO SCH (16:55)
[2019-09-05] MEDS ORDERED: Doxycycline 100 MG CAPSULE PO SCH (18:00)
[2019-09-06] MEDS: *HR* LORazepam 1 MG TABLET PO PRN ×3 (00:20→17:22)
[2019-09-06 01:32] LABS: Hematocrit 36.6 % (35.3-44.9); Hemoglobin 11.6 g/dL (11.5-15.4); Mean Corpuscular HGB Conc 31.7 g/dL (31.6-35.5); Mean Corpuscular Hemoglobin 30.3 pg (28.0-33.3); Mean Corpuscular Volume 95.6 fL (83.0-100.0); Mean Platelet Volume 10.3 fL (9.4-12.4); Platelet Count 166 K/mcL (140-400); Red Blood Count 3.83 M/mcL (3.82-4.97); Red Cell Distribution Width 13.8 % (11.5-14.5); White Blood Count 6.2 K/mcL (4.3-11.1)
[2019-09-06 01:47] LABS: BUN/Creatinine Ratio 37 (6-26); Blood Urea Nitrogen 18 mg/dL (8-23); Calcium 8.6 mg/dL (8.6-10.3); Carbon Dioxide 34 mEq/L (23-29); Chloride 103 mEq/L (98-107); Glucose 123 mg/dL (70-105); Osmolality,Calculated 291 (280-300); Potassium 4.1 mEq/L (3.5-5.1); Sodium 139 mEq/L (136-145); eGFR For African Americans > 60 (> 60); eGFR For Non-African Americans > 60 (> 60)
[2019-09-06] MEDS: *HR* OxyCODONE/APAP 5/325 TABLET PO PRN (02:17)
[2019-09-06] MEDS: Ipratropium/Albuterol Neb 3 ML IH SCH ×6 (04:17→23:15)
[2019-09-06] MEDS: Doxycycline 100 MG CAPSULE PO SCH ×2 (05:45→17:22)
[2019-09-06] MEDS: MethylPREDNISolone 40 MG/ML VIAL IVP SCH ×2 (05:45→17:22)
[2019-09-06] MEDS ORDERED: Metoprolol XL (24 HR) Succ 25 MG TAB.ER.24H PO SCH (09:00)
[2019-09-06] MEDS ORDERED: Aspirin 81 MG TAB.CHEW PO SCH (09:00)
[2019-09-06] MEDS: Aspirin 81 MG TAB.CHEW PO SCH (10:06)
[2019-09-06] MEDS: Metoprolol XL (24 HR) Succ 25 MG TAB.ER.24H PO SCH (10:06)
[2019-09-06] MEDS: Heparin 25,000 UNIT/250 ML D5W 25,000 UNIT/250 ML IV.SOLN IVC SCH (17:22)
[2019-09-06] MEDS: Budesonide/Formoterol 160/4.5 1 PUFF INH IH SCH (23:15)
[2019-09-07] MEDS: *HR* LORazepam 1 MG TABLET PO PRN ×4 (00:06→22:10)
[2019-09-07] MEDS: Ipratropium/Albuterol Neb 3 ML IH SCH ×6 (03:13→23:30)
[2019-09-07] MEDS: MethylPREDNISolone 40 MG/ML VIAL IVP SCH ×2 (05:20→17:05)
[2019-09-07] MEDS: Doxycycline 100 MG CAPSULE PO SCH ×2 (05:20→17:05)
[2019-09-07] MEDS: Budesonide/Formoterol 160/4.5 1 PUFF INH IH SCH ×2 (07:32→19:53)
[2019-09-07] MEDS: Metoprolol XL (24 HR) Succ 25 MG TAB.ER.24H PO SCH (09:18)
[2019-09-07] MEDS: Aspirin 81 MG TAB.CHEW PO SCH (09:18)
[2019-09-07] MEDS: *HR* Heparin 5,000 UNIT/ML VIAL SQ SCH (17:05)
[2019-09-08] MEDS: *HR* OxyCODONE/APAP 5/325 TABLET PO PRN (01:13)
[2019-09-08] MEDS: Ipratropium/Albuterol Neb 3 ML IH SCH ×6 (04:10→23:28)
[2019-09-08] MEDS: *HR* Heparin 5,000 UNIT/ML VIAL SQ SCH ×2 (05:13→17:14)
[2019-09-08] MEDS: MethylPREDNISolone 40 MG/ML VIAL IVP SCH ×2 (05:13→17:15)
[2019-09-08 05:26] LABS: Hematocrit 41.5 % (35.3-44.9); Mean Corpuscular HGB Conc 31.8 g/dL (31.6-35.5); Mean Corpuscular Hemoglobin 31.1 pg (28.0-33.3); Mean Corpuscular Volume 97.9 fL (83.0-100.0); Mean Platelet Volume 10.5 fL (9.4-12.4); Platelet Count 162 K/mcL (140-400); Red Blood Count 4.24 M/mcL (3.82-4.97); Red Cell Distribution Width 13.8 % (11.5-14.5); White Blood Count 7.7 K/mcL (4.3-11.1)
[2019-09-08 05:32] LABS: INR 0.9; Prothrombin Time 10.2 Seconds (9.4-12.1)
[2019-09-08 05:41] LABS: BUN/Creatinine Ratio 35 (6-26); Blood Urea Nitrogen 19 mg/dL (8-23); Calcium 8.7 mg/dL (8.6-10.3); Carbon Dioxide 34 mEq/L (23-29); Chloride 100 mEq/L (98-107); Glucose 89 mg/dL (70-105); Osmolality,Calculated 294 (280-300); Potassium 3.9 mEq/L (3.5-5.1); Sodium 141 mEq/L (136-145); eGFR For African Americans > 60 (> 60); eGFR For Non-African Americans > 60 (> 60)
[2019-09-08 06:03] LABS: Hemoglobin 13.2 g/dL (11.5-15.4)
[2019-09-08] MEDS: Budesonide/Formoterol 160/4.5 1 PUFF INH IH SCH ×2 (07:28→20:12)
[2019-09-08] MEDS: Aspirin 81 MG TAB.CHEW PO SCH (07:50)
[2019-09-08] MEDS: Metoprolol XL (24 HR) Succ 25 MG TAB.ER.24H PO SCH (07:50)
[2019-09-08] MEDS: *HR* LORazepam 1 MG TABLET PO PRN ×3 (07:50→20:48)
[2019-09-08] MEDS: Doxycycline 100 MG CAPSULE PO SCH ×2 (11:23→20:49)
[2019-09-09] MEDS: Ipratropium/Albuterol Neb 3 ML IH SCH ×5 (03:52→20:04)
[2019-09-09] MEDS: MethylPREDNISolone 40 MG/ML VIAL IVP SCH ×2 (05:29→16:14)
[2019-09-09] MEDS: *HR* Heparin 5,000 UNIT/ML VIAL SQ SCH (05:29)
[2019-09-09 06:06] LABS: BUN/Creatinine Ratio 32 (6-26); Blood Urea Nitrogen 21 mg/dL (8-23); Calcium 8.6 mg/dL (8.6-10.3); Carbon Dioxide 33 mEq/L (23-29); Chloride 102 mEq/L (98-107); Glucose 87 mg/dL (70-105); Osmolality,Calculated 296 (280-300); Sodium 142 mEq/L (136-145); eGFR For African Americans > 60 (> 60); eGFR For Non-African Americans > 60 (> 60)
[2019-09-09] MEDS: Budesonide/Formoterol 160/4.5 1 PUFF INH IH SCH ×2 (07:13→20:04)
[2019-09-09] MEDS: Metoprolol XL (24 HR) Succ 25 MG TAB.ER.24H PO SCH (09:09)
[2019-09-09] MEDS: Doxycycline 100 MG CAPSULE PO SCH ×2 (09:10→21:02)
[2019-09-09] MEDS: *HR* LORazepam 1 MG TABLET PO PRN ×3 (09:10→23:58)
[2019-09-09] MEDS: Aspirin 81 MG TAB.CHEW PO SCH (09:10)
[2019-09-09] MEDS ORDERED: Metoprolol XL (24 HR) Succ 25 MG TAB.ER.24H PO ONE (10:04)
[2019-09-09] MEDS ORDERED: 0.9 % Sodium Chloride 1,000 ML ONE ×2 (12:43→13:46)
[2019-09-09] MEDS ORDERED: *HR* FentaNYL (PF) 100 MCG/2 ML VIAL ONE (12:43)
[2019-09-09] MEDS ORDERED: *HR* Midazolam HCl 2 MG/2 ML VIAL ONE (12:43)
[2019-09-09] MEDS ORDERED: ISOVUE-370 200 ML INFUS..BTL ONE (13:46)
[2019-09-09] MEDS ORDERED: Heparin 1,000 UNITS/500 mL 500 ML ONE (13:46)
[2019-09-09] MEDS ORDERED: *HR* Heparin 10,000 UNIT/10 ML VIAL ONE (13:46)
[2019-09-09] MEDS ORDERED: Nitroglycerin 1,000 MCG/10 ML VIAL IV ONE (13:46)
[2019-09-10] MEDS: Ipratropium/Albuterol Neb 3 ML IH SCH ×4 (00:12→11:16)
[2019-09-10] MEDS: *HR* OxyCODONE/APAP 5/325 TABLET PO PRN (04:05)
[2019-09-10 05:01] LABS: Hematocrit 39.2 % (35.3-44.9); Hemoglobin 12.6 g/dL (11.5-15.4); Mean Corpuscular HGB Conc 32.1 g/dL (31.6-35.5); Mean Corpuscular Hemoglobin 31.6 pg (28.0-33.3); Mean Corpuscular Volume 98.2 fL (83.0-100.0); Mean Platelet Volume 10.6 fL (9.4-12.4); Platelet Count 187 K/mcL (140-400); Red Blood Count 3.99 M/mcL (3.82-4.97); White Blood Count 9.2 K/mcL (4.3-11.1)
[2019-09-10 05:20] LABS: BUN/Creatinine Ratio 41 (6-26); Blood Urea Nitrogen 29 mg/dL (8-23); Calcium 8.7 mg/dL (8.6-10.3); Carbon Dioxide 34 mEq/L (23-29); Chloride 102 mEq/L (98-107); Glucose 89 mg/dL (70-105); Osmolality,Calculated 293 (280-300); Potassium 3.8 mEq/L (3.5-5.1); Sodium 139 mEq/L (136-145); eGFR For African Americans > 60 (> 60); eGFR For Non-African Americans > 60 (> 60)
[2019-09-10] MEDS: *HR* Heparin 5,000 UNIT/ML VIAL SQ SCH (05:56)
[2019-09-10] MEDS: MethylPREDNISolone 40 MG/ML VIAL IVP SCH (05:59)
[2019-09-10] MEDS: Budesonide/Formoterol 160/4.5 1 PUFF INH IH SCH (07:13)
[2019-09-10] MEDS: Doxycycline 100 MG CAPSULE PO SCH (08:05)
[2019-09-10] MEDS: Aspirin 81 MG TAB.CHEW PO SCH (08:05)
[2019-09-10] MEDS: Metoprolol XL (24 HR) Succ 25 MG TAB.ER.24H PO SCH (08:06)
[2019-09-10] MEDS: *HR* LORazepam 1 MG TABLET PO PRN (08:15)
[2019-09-10 08:25] VITALS: BP 111/65
== END 2019-09-10 12:43 | disposition home or self-care (01) | DRG 133 ==
LOC: ICNU 16:33 → SUATTDRO 16:33 → 2ANU 09-05 12:31
PROVIDERS: ADMIT Pediatrics; ATTEND Internal Medicine

== ENCOUNTER 2019-09-16 02:34 | Observation (INO) ==
[2019-09-16] MEDS ORDERED: Isovue-370 500 ML BOTTLE IVP ONE (05:17)
[2019-09-16] MEDS ORDERED: Naloxone 0.4 MG/ML INJ IVP PRN (05:45)
[2019-09-16 05:47] LABS: ABG Base Excess 5 mEq/L (-2 to 3); ABG HCO3 32 mEq/L (21-27); ABG Oxygen Saturation 91 % (95-98); ABG PCO2 51 mmHg (35-45); ABG PO2 62 mmHg (85-104); ABG TCO2 33 mEq/L (20-26)
[2019-09-16 05:50] LABS: Basophils % 0.1 %; Eosinophils % 0.1 %; Hematocrit 40.5 % (35.3-44.9); Hemoglobin 13.1 g/dL (11.5-15.4); Immature Granulocytes % 0.5 % (0-4); Lymphocytes # 0.5 K/mcL (0.6-4.6); Lymphocytes % 2.3 %; Mean Corpuscular HGB Conc 32.3 g/dL (31.6-35.5); Mean Corpuscular Hemoglobin 31.3 pg (28.0-33.3); Mean Corpuscular Volume 96.7 fL (83.0-100.0); Mean Platelet Volume 10.2 fL (9.4-12.4); Monocytes # 0.4 K/mcL (0.0-1.3); Monocytes % 1.8 %; Neutrophils # 19.9 K/mcL (1.6-8.9); Platelet Count 242 K/mcL (140-400); Red Blood Count 4.19 M/mcL (3.82-4.97); Red Cell Distribution Width 13.5 % (11.5-14.5); Segmented Neutrophils % 95.2 %
[2019-09-16 05:52] LABS: White Blood Count 20.9 K/mcL (4.3-11.1)
[2019-09-16] MEDS ORDERED: *HR* Heparin 5,000 UNIT/ML VIAL SQ SCH (06:00)
[2019-09-16] MEDS ORDERED: Vancomycin (wt based) 1,000 MG VIAL IVPB SCH (06:00)
[2019-09-16 06:08] LABS: Alanine Aminotransferase 17 Units/L (7-52); Albumin 3.8 g/dL (3.5-5.7); Albumin/Globulin Ratio 1.7 (1.1-2.2); Alkaline Phosphatase 105 Units/L (34-104); Aspartate Amino Transferase 12 Units/L (13-39); BUN/Creatinine Ratio 21 (6-26); Bilirubin,Total 0.7 mg/dL (0.3-1.0); Blood Urea Nitrogen 13 mg/dL (8-23); Calcium 9.3 mg/dL (8.6-10.3); Carbon Dioxide 29 mEq/L (23-29); Chloride 100 mEq/L (98-107); Globulin 2.2 g/dL (2.4-3.5); Glucose 157 mg/dL (70-105); Magnesium 1.8 mg/dL (1.6-2.6); Osmolality,Calculated 287 (280-300); Phosphorous 3.3 mg/dL (2.7-4.5); Potassium 4.4 mEq/L (3.5-5.1); Sodium 137 mEq/L (136-145); eGFR For African Americans > 60 (> 60); eGFR For Non-African Americans > 60 (> 60)
[2019-09-16 06:17] LABS: Thyroid Stimulating Hormone 2.185 mcIU/mL (0.340-5.600)
[2019-09-16] MEDS: 0.9 % Sodium Chloride 1,000 ML IVC SCH ×2 (06:40→08:56)
[2019-09-16] MEDS ORDERED: *HR* Heparin 5,000 UNIT/ML VIAL IVP PRN ×2 (06:44)
[2019-09-16] MEDS ORDERED: Heparin 25,000 UNIT/250 ML D5W 25,000 UNIT/250 ML IV.SOLN IVC SCH (06:45)
[2019-09-16 07:18] LABS: Hematocrit 39.2 % (35.3-44.9); Hemoglobin 13.1 g/dL (11.5-15.4); Mean Corpuscular HGB Conc 33.4 g/dL (31.6-35.5); Mean Corpuscular Volume 95.8 fL (83.0-100.0); Mean Platelet Volume 10.4 fL (9.4-12.4); Platelet Count 254 K/mcL (140-400); Red Blood Count 4.09 M/mcL (3.82-4.97); Red Cell Distribution Width 13.4 % (11.5-14.5); White Blood Count 18.8 K/mcL (4.3-11.1)
[2019-09-16 07:28] LABS: Heparin anti-factor XA UFH 0.01 IU/mL (0.30-0.70)
[2019-09-16 07:29] LABS: INR 1.2; Prothrombin Time 13.4 Seconds (9.4-12.1)
[2019-09-16] MEDS ORDERED: Piperacillin/Tazobactam 3.375 GM in 0.9 % Sodium Chloride Mini Bag 100 ML IVPB SCH (08:00)
[2019-09-16] MEDS ORDERED: Nicotine 14 MG PATCH.TD24 TD SCH (09:00)
[2019-09-16 09:44] LABS: Estimated Average Glucose 120 mg/dl
[2019-09-16] MEDS ORDERED: *HR* LORazepam 2 MG/ML VIAL IVP ONE (11:12)
[2019-09-16 11:54] VITALS: BP 116/75
[2019-09-16] MEDS ORDERED: Ipratropium/Albuterol Neb 3 ML IH STA (13:05)
[2019-09-16] MEDS ORDERED: Budesonide/Formoterol 160/4.5 1 PUFF INH IH SCH (14:00)
[2019-09-16] MEDS ORDERED: Aminoglycoside Consult 1 EACH MC ONE (14:22)
== END 2019-09-16 14:23 | disposition critical access hospital (66) ==
LOC: 2NENU → SUATTDRO 05:45
PROVIDERS: ADMIT Family Medicine; ATTEND Internal Medicine